=== PATIENT | male | born 1950 | race Caucasian/White ===

== ENCOUNTER 2022-04-02 18:07 | Inpatient (IN) | payer OTHER ==
[~2022-04-02] VITALS: Ht 170.2 cm; Wt 88.8 kg
[~2022-04-02 18:07] MED LIST: ALBU2.5V8 IH; APIX2.5T PO; BUME1TAB3 PO; CETI10TA16 PO; CRESTOR40 MG PO; FLEC100T PO; GABA600T7 PO; INSU100V13 SQ; PANT40TA77 PO
[2022-04-02 19:00] VITALS: BP 79/52
--- NOTE | 2022-04-02 19:50 | NUR ---
Pt in bed assessment completed vss pt oriented to surroundings and call light poc explained pt c/o pain to neck and back. on unit to see pt and place admit orders will resume care and continue to monitor pt. Call placed to pt for update.
[2022-04-02] MEDS ORDERED: ALBUMIN HUMAN 5% 250 ML IV PRN (21:00)
[2022-04-02] MEDS ORDERED: ONDANSETRON PF 4 MG/2 ML VIAL. IVP PRN (21:00)
[2022-04-02] MEDS ORDERED: hydrALAZINE 20 MG/ML VIAL. IVP PRN (21:00)
[2022-04-02] MEDS: HYDROcodone/APAP 5/325MG 1 TAB TABLET PO PRN (21:00)
[2022-04-02] MEDS ORDERED: fentaNYL PF VIAL 100 MCG/2 ML VIAL IVP PRN (21:00)
[2022-04-02] MEDS ORDERED: DEXTROSE 50% 25 GM / 50ML DISP.SYRIN. IV PRN (21:00)
[2022-04-02] MEDS ORDERED: ACETAMINOPHEN 325 MG TABLET. PO PRN (21:00)
[2022-04-02] MEDS ORDERED: NITROGLYCERIN SUBLINGUAL 0.4 MG BOTTLE OF 25. SL PRN (21:00)
[2022-04-02] MEDS ORDERED: ONDANSETRON ODT 4 MG TAB.RAPDIS. PO PRN (21:00)
--- NOTE | 2022-04-02 21:36 | PDOC1 ---
History and Physical Date of Admission Date of Admission DATE: 04/02/22 TIME: 21:04 Identification/Chief Complaint Chief Complaint Shortness of breath, COVID 19 positive Source Source: Chart review, Patient History of Present Illness History of Present Illness Mr Anderson is a 71 yo male with PMHx chronic afib, chronic combined CHF, ischemic cardiomyopathy s/p AICD placement, HTN, HLD, GERD, DM2, and ESRD on HD comes to the ED at [facility] c/o shortness of breath and inability to have dialysis. He has been short of breath for the past 6 days prior to arrival and feeling progressively more weak and has myalgias. His actually had to help him stand up today. He went to his regularly scheduled dialysis but he was asked to be rescheduled until tomorrow. He was concerned about his progressive symptoms and noted his tested positive for COVID19 2 weeks ago with similar symptoms and so came to [facility] ED for further care. Labs with WBC 15.9, Hb 12,8, platelets 176, Na 131, K 4.5, BUN 110, Cr 6.32, Glucose 211, Ca 8.1, AST 31, ALT35, Alk phos 108, Albumin 3.4, COVID 19 rapid positive Chest radiograph with no acute abnormality, well positioned right HD catheter and left sided AICD pacer Due to his lab abnormalities, unable to stand unaided and COVID 19 he was called for transfer to [place] for further care. Past Medical History Cardiovascular: AFIB, CAD, CHF, HTN, Hyperlipidemia Pulmonary: COPD CENTRAL NERVOUS SYSTEM: Other GI: GERD Heme/Onc: Anemia NOS Hepatobiliary: No pertinent hx Musculoskeletal: Osteoarthritis Rheumatologic: No pertinent hx Infectious disease: No pertinent hx Renal/: Chronic renal failure Endocrine: Diabetes Past Surgical History Past Surgical History: Pacemaker, Other Family History Family History: Coronary Artery Disease (Father), Heart Disease Social History Smoke: <1 pack per day (cigars) ALCOHOL: none Drugs: None Current Medications Current Medications Current Medications Acetaminophen/ Hydrocodone Bitart (Lortab 5/325) 1 tab PRN Q6HRS PRN PO PAIN Last administered on 04/02/22at 21:00; Start 04/02/22 at 21:00 Zinc Sulfate (Orazinc) 220 mg DAILY PO ; Start 04/03/22 at 09:00 Thiamine Mononitrate (Vitamin B-1) 100 mg DAILY PO ; Start 04/03/22 at 09:00 Ascorbic Acid (Vitamin C) 500 mg DAILY PO ; Start 04/03/22 at 09:00 Acetaminophen (Tylenol) 650 mg PRN Q6HRS PRN PO MILD PAIN / TEMP > 100.3'F; Start 04/02/22 at 21:00 Heparin Sodium (Porcine) (Heparin Sodium) 5,000 unit Q8HRS SQ ; Start 04/02/22 at 22:00; Status UNV Hydralazine HCl (Apresoline Inj) 10 mg PRN Q4HRS PRN IVP ELEVATED BP, SEE COMMENTS; Start 04/02/22 at 21:00; Status UNV Nitroglycerin (Nitrostat) 0.4 mg PRN Q5MIN PRN SL CHEST PAIN; Start 04/02/22 at 21:00; Status UNV Ondansetron HCl (Zofran Odt) 4 mg PRN Q4HRS PRN PO NAUSEA; Start 04/02/22 at 21:00; Status UNV Guaifenesin (Robitussin Dm) 10 ml PRN Q6HRS PRN PO COUGH; Start 04/02/22 at 21:00; Status UNV Ondansetron HCl (Zofran) 4 mg PRN Q4HRS PRN IVP NAUSEA/VOMITING; Start 04/02/22 at 21:00; Status UNV Tramadol HCl (Ultram) 50 mg PRN Q6HRS PRN PO PAIN; Start 04/02/22 at 21:00; Status UNV Fentanyl Citrate (Fentanyl 2ml Vial) 25 mcg PRN Q3HRS PRN IVP SEVERE PAIN 7-10; Start 04/02/22 at 21:00; Status UNV Insulin Human Lispro (HumaLOG) 0-9 UNITS TIDACHC SQ ; Start 04/02/22 at 21:00; Status UNV Dextrose (Dextrose 50%-Water Syringe) 12.5 gm PRN Q15MIN PRN IV SEE COMMENTS; Start 04/02/22 at 21:00; Status UNV Active Scripts Active Reported Proair Hfa Inhaler (Albuterol Sulfate) 8.5 Gm Hfa.aer.ad 2 Puff IH PRN Q4-6HRS PRN 21 Days Levemir (Insulin Detemir) 100 Unit/1 Ml Vial 22 Unit SQ HS Protonix (Pantoprazole Sodium) 40 Mg Tablet.dr 40 Mg PO DAILYAC Bumetanide 1 Mg Tablet 1 Tab PO DAILY Crestor (Rosuvastatin Calcium) 40 Mg Tablet 1 Tab PO DAILY Gabapentin 600 Mg Tablet 300 Mg PO HS Eliquis (Apixaban) 2.5 Mg Tablet 2.5 Mg PO BID Cetirizine Hcl 10 Mg Tablet 1 Tab PO DAILY Allergies Allergies: Coded Allergies: No Known Drug Allergies (Unverified , 01/31/22) ROS General: YES: Fatigue, Malaise, Appetite; No: Chills, Night Sweats, Other PSYCHOLOGICAL ROS: No: Anxiety, Behavioral Disorder, Concentration difficultie, Decreased libido, Depression, Disorientation, Hallucinations, Hostility, Irritablity, Memory difficulties, Mood Swings, Obsessive thoughts, Physical abuse, Sexual abuse, Sleep disturbances, Suicidal ideation, Other Eyes: No Blurry vision, No Decreased vision, No Double vision, No Dry eyes, No Excessive tearing, No Eye Pain, No Itchy Eyes, No Loss of vision, No Photophobia, No Scotomata, No Uses contacts, No Uses glasses, No Other HEENT: No: Heacaches, Visual Changes, Hearing change, Nasal congestion, Nasal discharge, Oral lesions, Sinus pain, Sore Throat, Epistaxis, Sneezing, Snoring, Tinnitus, Vertigo, Vocal changes, Other ALLERGY AND IMMUNOLOGY: No: Hives, Insect Bite Sensitivity, Itchy/Watery Eyes, Nasal Congestion, Post Nasal Drip, Seasonal Allergies, Other Hematological and Lymphatic: No: Bleeding Problems, Blood Clots, Blood Transfusions, Brusing, Night Sweats, Pallor, Swollen Lymph Nodes, Other ENDOCRINE: No: Breast Changes, Galactorrhea, Hair Pattern Changes, Hot Flashes, Malaise/lethargy, Mood Swings, Palpitations, Polydipsia/polyuria, Skin Changes, Temperature Intolerance, Unexpected Weight Changes, Other Breast: No New/Changing Breast Lumps, No Nipple changes, No Nipple discharge, No Other Respiratory: YES: Shortness of breath, SOB with excertion; No: Cough, Hemoptysis, Orthopnea, Pleuritic Pain, Sputum Changes, Stridor, Tachypnea, Wheezing, Other Cardiovascular: No Chest Pain, No Palpitations, No Orthopnea, No Paroxysmal Noc. Dyspnea, No Edema, No Lt Headedness, No Other Gastrointestinal: Yes Nausea; No Vomiting, No Abdominal Pain, No Diarrhea, No Constipation, No Melena, No Hematochezia, No Other Genitourinary: No Dysuria, No Frequency, No Incontinence, No Hematuria, No Retention, No Discharge, No Urgency, No Pain, No Flank Pain, No Other, No , No , No , No , No , No , No Musculoskeletal: Yes Gait Disturbance, Yes Joint Pain, Yes Muscle Pain, Yes Muscular Weakness; No Joint Stiffness, No Joint Swelling, No Pain In:, No Swelling In:, No Other Neurological: No Behavorial Changes, No Bowel/Bladder ControlChng, No Confu rinku, No Dizziness, No Gait Disturbance, No Headaches, No Impaired Coord/balance, No Memory Loss, No Numbness/Tingling, No Seizures, No Speech Problems, No Tremors, No Visual Changes, No Weakness, No Other Skin: No Dry Skin, No Eczema, No Hair Changes, No Lumps, No Mole Changes, No Mottling, No Nail Changes, No Pruritus, No Rash, No Skin Lesion Changes, No Oth er, No Acne Physical Exam General: Alert, Oriented X3, Cooperative, moderate distress HEENT: Atraumatic, PERRLA, EOMI, Mucous membr. moist/pink Lungs: Clear to auscultation, Normal air movement Heart: irregularly irregular, other (RIJ tunneled dialysis catheter) Abdomen: Normal bowel sounds, Soft, No tenderness, No hepatosplenomegaly, No masses Extremities: No clubbing, No cyanosis, No edema, Normal pulses, No tenderness/swelling Skin: No rashes, No breakdown, No significant lesion Neuro: Normal gait, Normal speech, Strength at 5/5 X4 ext, Normal tone, Sensation intact, Cranial nerves 3-12 NL, Reflexes 2+ Psych/Mental Status: Mental status NL, Mood NL Vitals Vitals Vital Signs Date Time Temp Pulse Resp B/P (MAP) Pulse Ox O2 Delivery O2 Flow Rate FiO2 04/02/22 21:00 18 94 Nasal Cannula 2.0 Labs Labs Laboratory Tests Test 04/02/22 20:33 Glucose (Fingerstick) 248 mg/dL (70-99) Laboratory Tests Test 04/02/22 20:33 Glucose (Fingerstick) 248 mg/dL (70-99) VTE Prophylaxis Ordered VTE Prophylaxis Devices: Yes VTE Pharmacological Prophylaxi: Yes Assessment/Plan Assessment/Plan COVID 19 - supportive care. Monitor O2 saturations, maintain > 89%. If hypoxic will initiate decadron and remdesivir therapy Weakness - likely related to COVID 19, also with some uremia Myalgias - viral syndrome ESRD - with uremia. Consult nephrology for missed dialysis session. Started dialysis this past November 2021, has RIJ tunneled dialysis catheter Cardiomyopathy - ischemic by history, s/p AICD [facility] paced rhythm with underlying afib HTN - low BP since HLD - statin DM2 - basal bolus plus insulin while inpatient Chronic AFIB - rate controlled with pacer AICD CAD - prior PCI. Sees Dr. Sena through the [facility] H/o UTI - [place] UTI in January 2022 FEN - Renal dialysis diet PPX - eliquis FULL CODE Dispo - inpatient Justifications for Admission General Conditions Poss hypotension?: Yes Justification for admission: Patient has hypotension (SBP < 90 mm Hg) which is not readily corrected by appropriate treatment within 12 to 24 hours. Poss Metaboilic Acidosis?: Yes Justification for admission: Patient has tachycardia (> 100 beats per minute) or hypotension (SBP < 90 mm Hg) leading to inadequate systemic perfusion as indicated by metabolic acidosis with arterial pH of less than 7.35. Other Justification SHELIA OCASIO MD April 02, 2022 21:36
[2022-04-02] MEDS: DOCUSATE SODIUM 100 MG CAPSULE. PO SCH (21:57)
[2022-04-02] MEDS: ATORVASTATIN CALCIUM 40 MG TABLET. PO SCH (21:57)
[2022-04-02] MEDS: guaiFENesin DM 200MG/20MG 10 ML SYRUP PO PRN (21:57)
[2022-04-02] MEDS: GABAPENTIN 300 MG CAPSULE. PO SCH (21:57)
[2022-04-02] MEDS: APIXABAN 2.5 MG TABLET. PO SCH (21:57)
[2022-04-02] MEDS: INSULIN GLARGINE SYRINGE. SQ SCH (21:58)
[2022-04-02] MEDS: INSULIN LISPRO 300 UNITS/3 ML VIAL. SQ SCH (22:00)
[2022-04-02] MEDS ORDERED: HEPARIN for SUB-Q USE 5,000 UNIT/ML VIAL. SQ SCH (22:00)
[2022-04-02] MEDS: traMADol 50 MG TABLET PO PRN (22:01)
[2022-04-02 23:00] VITALS: BP 99/50
[2022-04-03] MEDS ORDERED: TIOT18CA IH (02:36)
[2022-04-03] MEDS ORDERED: BUPR1PAT10 TP (02:36)
[2022-04-03] MEDS ORDERED: BUME1TAB3 PO (02:36)
[2022-04-03] MEDS ORDERED: CHOL10004 PO (02:36)
[2022-04-03] MEDS ORDERED: FLEC100T PO (02:36)
[2022-04-03 02:44] VITALS: BP 96/51
[2022-04-03] MEDS: HYDROcodone/APAP 5/325MG 1 TAB TABLET PO PRN ×3 (03:24→18:30)
[2022-04-03 05:30] LABS: BASO % 0 % (0-3); EOS % 0 % (0-3); HEMATOCRIT 36.1 % (39.0-53.0); HEMOGLOBIN 11.8 g/dL (13.0-17.5); LYMPH # 0.5 x10^3/uL (1.0-4.8); LYMPH % 4 % (24-48); MEAN CORPUSCULAR HEMOGLOBIN 29 pg (25-35); MEAN CORPUSCULAR HGB CONC 33 g/dL (31-37); MEAN CORPUSCULAR VOLUME 88 fL (79-100); MONO # 1.2 x10^3/uL (0.0-1.1); MONO % 8 % (0-9); NEUT # 12.2 x10^3/uL (1.8-7.7); NEUT % 88 % (31-73); PLATELET COUNT 169 x10^3/uL (140-400); RED BLOOD COUNT 4.11 x10^6/uL (4.30-5.70); RED CELL DISTRIBUTION WIDTH 15.1 % (11.5-14.5); WHITE BLOOD COUNT 13.8 x10^3/uL (4.0-11.0)
[2022-04-03 05:44] LABS: ALBUMIN 2.4 g/dL (3.4-5.0); ALBUMIN/GLOBULIN RATIO 0.5 (1.0-1.7); CALCIUM 7.8 mg/dL (8.5-10.1); CREATININE 7.2 mg/dL (0.7-1.3); GFR 7.5; POTASSIUM 4.1 mmol/L (3.5-5.1); TOTAL BILIRUBIN 1.1 mg/dL (0.2-1.0); TOTAL PROTEIN 6.8 g/dL (6.4-8.2)
[2022-04-03] MEDS: PANTOPRAZOLE 40 MG TABLET.DR. PO SCH (06:13)
[2022-04-03 06:33] VITALS: BP 89/53
[2022-04-03] MEDS: ASCORBIC ACID 500 MG TABLET PO SCH (08:36)
[2022-04-03] MEDS: APIXABAN 2.5 MG TABLET. PO SCH ×2 (08:36→20:57)
[2022-04-03] MEDS: CETIRIZINE HCL 10 MG TABLET. PO SCH (08:36)
[2022-04-03] MEDS: THIAMINE 100 MG TABLET. PO SCH (08:36)
[2022-04-03] MEDS: ZINC SULFATE 220 MG CAPSULE. PO SCH (08:36)
[2022-04-03] MEDS: DOCUSATE SODIUM 100 MG CAPSULE. PO SCH ×2 (08:36→20:58)
--- NOTE | 2022-04-03 08:46 | PDOC ---
[employer] PROGRESS NOTE Date of Service DOS: DATE: 04/03/22 TIME: 08:42 Chief Complaint Chief Complaint COVID 19 - supportive care. Monitor O2 saturations, maintain > 89%. If hypoxic will initiate decadron and remdesivir therapy Weakness - likely related to COVID 19, also with some uremia Myalgias - viral syndrome ESRD - with uremia. Consult nephrology for missed dialysis session. Started dialysis this past November 2021, has RIJ tunneled dialysis catheter Cardiomyopathy - ischemic by history, s/p AICD [facility] paced rhythm with underlying afib HTN - low BP since HLD - statin DM2 - basal bolus plus insulin while inpatient Chronic AFIB - rate controlled with pacer AICD CAD - prior PCI. Sees Dr. Sena through the [facility] H/o UTI - [place] UTI in January 2022 Severe malnutrition History of Present Illness History of Present Illness 04/03: Patient afebrile, resting comfortably on room air. Denies any shortness of breath. Reports some muscle aches in his neck, shoulders, and proximal legs. States he has not had dialysis and few days due to his weakness. Potassium 4.1; I doubt there is any urgent need for dialysis at this time, but will wait for nephrology impression. Vitals/I&O Vitals/I&O: Vital Signs Date Time Temp Pulse Resp B/P (MAP) Pulse Ox O2 Delivery O2 Flow Rate FiO2 04/03/22 06:33 97.9 62 17 89/53 (65) 95 Room Air 97.9 04/02/22 22:01 2.0 I & O 04/02/22 04/02/22 04/03/22 15:00 23:00 07:00 Intake Total 650 ml 600 ml Balance 650 ml 600 ml Physical Exam General: Alert, Oriented X3, Cooperative, No acute distress Heart: Regular rate Lungs: Clear Abdomen: Normal bowel sounds, Soft, No tenderness, No hepatosplenomegaly, No masses Extremities: No clubbing, No cyanosis, No edema, Normal pulses, No tenderness/swelling Skin: No rashes, No breakdown, No significant lesion Labs Labs: Laboratory Tests Test 04/02/22 20:33 04/03/22 05:00 04/03/22 07:57 Glucose (Fingerstick) 248 mg/dL (70-99) 220 mg/dL (70-99) White Blood Count 13.8 x10^3/uL (4.0-11.0) Red Blood Count 4.11 x10^6/uL (4.30-5.70) Hemoglobin 11.8 g/dL (13.0-17.5) Hematocrit 36.1 % (39.0-53.0) Mean Corpuscular Volume 88 fL (79-100) Mean Corpuscular Hemoglobin 29 pg (25-35) Mean Corpuscular Hemoglobin Concent 33 g/dL (31-37) Red Cell Distribution Width 15.1 % (11.5-14.5) Platelet Count 169 x10^3/uL (140-400) Neutrophils (%) (Auto) 88 % (31-73) Lymphocytes (%) (Auto) 4 % (24-48) Monocytes (%) (Auto) 8 % (0-9) Eosinophils (%) (Auto) 0 % (0-3) Basophils (%) (Auto) 0 % (0-3) Neutrophils # (Auto) 12.2 x10^3/uL (1.8-7.7) Lymphocytes # (Auto) 0.5 x10^3/uL (1.0-4.8) Monocytes # (Auto) 1.2 x10^3/uL (0.0-1.1) Eosinophils # (Auto) 0.0 x10^3/uL (0.0-0.7) Basophils # (Auto) 0.0 x10^3/uL (0.0-0.2) Sodium Level 132 mmol/L (136-145) Potassium Level 4.1 mmol/L (3.5-5.1) Chloride Level 91 mmol/L (98-107) Carbon Dioxide Level 21 mmol/L (21-32) Anion Gap 20 (6-14) Blood Urea Nitrogen 124 mg/dL (8-26) Creatinine 7.2 mg/dL (0.7-1.3) Estimated GFR (Cockcroft-Gault) 7.5 BUN/Creatinine Ratio 17 (6-20) Glucose Level 265 mg/dL (70-99) Calcium Level 7.8 mg/dL (8.5-10.1) Phosphorus Level 7.0 mg/dL (2.6-4.7) Total Bilirubin 1.1 mg/dL (0.2-1.0) Aspartate Amino Transf (AST/SGOT) 34 U/L (15-37) Alanine Aminotransferase (ALT/SGPT) 40 U/L (16-63) Alkaline Phosphatase 107 U/L (46-116) Total Protein 6.8 g/dL (6.4-8.2) Albumin 2.4 g/dL (3.4-5.0) Albumin/Globulin Ratio 0.5 (1.0-1.7) Comment Review of Relevant I have reviewed the following items kate (where applicable) has been applied. Medications: Current Medications Medications (Trade) Dose Ordered Sig/Mariza Route PRN Reason Start Time Stop Time Status Last Admin Dose Admin Acetaminophen/ Hydrocodone Bitart (Lortab 5/325) 1 tab PRN Q6HRS PRN PO PAIN SEVERE 04/02/22 21:00 04/03/22 03:24 Guaifenesin (Robitussin Dm) 10 ml PRN Q6HRS PRN PO COUGH 04/02/22 21:00 04/02/22 21:57 Tramadol HCl (Ultram) 50 mg PRN Q6HRS PRN PO PAIN MODERATE 04/02/22 21:00 04/02/22 22:01 Insulin Human Lispro (HumaLOG) 0-9 UNITS TIDACHC SQ 04/02/22 21:30 04/02/22 22:00 Docusate Sodium (Colace) 100 mg BID PO 04/02/22 21:30 04/02/22 21:57 Apixaban (Eliquis) 2.5 mg BID PO 04/02/22 21:30 04/02/22 21:57 Pantoprazole Sodium (Protonix) 40 mg DAILYAC PO 04/03/22 07:30 04/03/22 06:13 Gabapentin (Neurontin) 300 mg HS PO 04/02/22 21:30 04/02/22 21:57 Insulin Glargine (Lantus Syringe) 22 unit QHS SQ 04/02/22 21:30 04/02/22 21:58 Atorvastatin Calcium (Lipitor) 80 mg QHS PO 04/02/22 21:30 04/02/22 21:57 Justifications for Admission General Conditions Poss hypotension?: Yes Justification for admission: Patient has hypotension (SBP < 90 mm Hg) which is not readily corrected by appropriate treatment within 12 to 24 hours. Poss Metaboilic Acidosis?: Yes Justification for admission: Patient has tachycardia (> 100 beats per minute) or hypotension (SBP < 90 mm Hg) leading to inadequate systemic perfusion as indicated by metabolic acidosis with arterial pH of less than 7.35. Other Justification ILIA SHANNON MD April 03, 2022 08:46
[2022-04-03] MEDS: INSULIN LISPRO 300 UNITS/3 ML VIAL. SQ SCH ×4 (08:49→21:00)
[2022-04-03] MEDS ORDERED: ALBUMIN HUMAN 25% 200 ML IV PRN (10:00)
[2022-04-03] MEDS ORDERED: 0.9 % SODIUM CHLORIDE 10 ML DISP.SYRIN. IV PRN ×2 (10:00)
[2022-04-03] MEDS ORDERED: DIALYSIS PATIENT. MC PRN ×2 (10:00)
[2022-04-03] MEDS ORDERED: IV NORMAL SALINE 1000ML BAG 1,000 ML IV PRN ×2 (10:00)
[2022-04-03 10:39] VITALS: BP 92/47
--- NOTE | 2022-04-03 11:36 | PDOC2 ---
CONSULT Date of Consult Date of Consult DATE: 04/03/22 TIME: 11:30 Reason for Consult Reason for Consult: ESRD Referring Physician Referring Physician: AMARJIT Identification/Chief Complaint Chief Complaint WEAKNESS Source Source: Chart review, Patient History of Present Illness Reason for Visit: THIS IS A 71 YR OLD WITH ESRD ON OP HD ON TTS. HAS HAD SOB AND WEAKNESS. UNABLE TO GET HIS HD TX YESTERDAY. HAS HAD MYALGIAS WELL. HE AND HIS ARE BOTH COVID 19 POS. LABS C/W ESRD. HE ALSO HAS LEUCOCYTOSIS. HAS A RIGHT SIDED IJ TDC FOR HD ACCESS. ESRD DUE TO DM II Past Medical History Cardiovascular: AFIB, CAD, CHF, HTN, Hyperlipidemia Pulmonary: COPD CENTRAL NERVOUS SYSTEM: Other GI: GERD Heme/Onc: Anemia NOS Hepatobiliary: No pertinent hx Musculoskeletal: Osteoarthritis Rheumatologic: No pertinent hx Infectious disease: No pertinent hx Renal/: Chronic renal failure Endocrine: Diabetes, Hyperparathyroidism Past Surgical History Past Surgical History RIGHT IJ TDC Past Surgical History: Pacemaker, Other Family History Family History: Coronary Artery Disease (Father), Heart Disease Social History <1 pack per day (cigars) ALCOHOL: none Drugs: None Lives: with Family Current Medications Current Medications Current Medications Acetaminophen/ Hydrocodone Bitart (Lortab 5/325) 1 tab PRN Q6HRS PRN PO PAIN SEVERE Last administered on 04/03/22at 03:24; Start 04/02/22 at 21:00 Zinc Sulfate (Orazinc) 220 mg DAILY PO Last administered on 04/03/22at 08:36; Start 04/03/22 at 09:00 Thiamine Mononitrate (Vitamin B-1) 100 mg DAILY PO Last administered on 04/03/22at 08:36; Start 04/03/22 at 09:00 Ascorbic Acid (Vitamin C) 500 mg DAILY PO Last administered on 04/03/22at 08:36; Start 04/03/22 at 09:00 Acetaminophen (Tylenol) 650 mg PRN Q6HRS PRN PO MILD PAIN / TEMP > 100.3'F; Start 04/02/22 at 21:00 Heparin Sodium (Porcine) (Heparin Sodium) 5,000 unit Q8HRS SQ ; Start 04/02/22 at 22:00; Stop 04/02/22 at 21:19; Status DC Hydralazine HCl (Apresoline Inj) 10 mg PRN Q4HRS PRN IVP ELEVATED BP, SEE COMMENTS; Start 04/02/22 at 21:00 Nitroglycerin (Nitrostat) 0.4 mg PRN Q5MIN PRN SL CHEST PAIN; Start 04/02/22 at 21:00 Ondansetron HCl (Zofran Odt) 4 mg PRN Q4HRS PRN PO NAUSEA; Start 04/02/22 at 21:00 Guaifenesin (Robitussin Dm) 10 ml PRN Q6HRS PRN PO COUGH Last administered on 04/02/22at 21:57; Start 04/02/22 at 21:00 Ondansetron HCl (Zofran) 4 mg PRN Q4HRS PRN IVP NAUSEA/VOMITING; Start 04/02/22 at 21:00 Tramadol HCl (Ultram) 50 mg PRN Q6HRS PRN PO PAIN MODERATE Last administered on 04/02/22at 22:01; Start 04/02/22 at 21:00 Fentanyl Citrate (Fentanyl 2ml Vial) 25 mcg PRN Q3HRS PRN IVP SEVERE PAIN 7-10; Start 04/02/22 at 21:00 Insulin Human Lispro (HumaLOG) 0-9 UNITS TIDACHC SQ Last administered on 04/03/22at 08:49; Start 04/02/22 at 21:30 Dextrose (Dextrose 50%-Water Syringe) 12.5 gm PRN Q15MIN PRN IV SEE COMMENTS; Start 04/02/22 at 21:00 Docusate Sodium (Colace) 100 mg BID PO Last administered on 04/03/22at 08:36; Start 04/02/22 at 21:30 Albumin Human 250 ml @ 62.5 mls/hr PRN DAILY PRN IV HYPOTENSION; Start 04/02/22 at 21:00 Apixaban (Eliquis) 2.5 mg BID PO Last administered on 04/03/22at 08:36; Start 04/02/22 at 21:30 Cetirizine HCl (ZyrTEC) 10 mg DAILY PO Last administered on 04/03/22at 08:36; Start 04/03/22 at 09:00 Pantoprazole Sodium (Protonix) 40 mg DAILYAC PO Last administered on 04/03/22at 06:13; Start 04/03/22 at 07:30 Gabapentin (Neurontin) 300 mg HS PO Last administered on 04/02/22at 21:57; Start 04/02/22 at 21:30 Insulin Glargine (Lantus Syringe) 22 unit QHS SQ Last administered on 04/02/22at 21:58; Start 04/02/22 at 21:30 Atorvastatin Calcium (Lipitor) 80 mg QHS PO Last administered on 04/02/22at 21:57; Start 04/02/22 at 21:30 Sodium Chloride 1,000 ml @ 1,000 mls/hr Q1H PRN IV hypotension; Start 04/03/22 at 10:00; Stop 04/03/22 at 15:59 Albumin Human 200 ml @ 200 mls/hr 1X PRN PRN IV Hypotension; Start 04/03/22 at 10:00; Stop 04/03/22 at 15:59 Sodium Chloride (Normal Saline Flush) 10 ml 1X PRN PRN IV AP catheter pack; Start 04/03/22 at 10:00; Stop 04/04/22 at 09:59 Sodium Chloride (Normal Saline Flush) 10 ml 1X PRN PRN IV LICENSED [employer]ICAL N[employer]SE INSTRUCTOR catheter pack; Start 04/03/22 at 10:00; Stop 04/04/22 at 09:59 Sodium Chloride 1,000 ml @ 400 mls/hr Q2H30M PRN IV PATENCY; Start 04/03/22 at 10:00; Stop 04/03/22 at 21:59 Info (PHARMACY MONITORING -- do not chart) 1 each PRN DAILY PRN MC SEE COMMENTS; Start 04/03/22 at 10:00 Info (PHARMACY MONITORING -- do not chart) 1 each PRN DAILY PRN MC SEE COMMENTS; Start 04/03/22 at 10:00; Status UNV Active Scripts Active Reported Vitamin D3 (Vitamin D) 25 Mcg Tablet 50 Mcg PO DAILY 1,000 UNITS = 25 MCG Spiriva (Tiotropium [place]) 18 Mcg Cap.w.dev 2 Inh IH DAILY Flecainide Acetate 100 Mg Tablet 1.5 Tab PO BID Butrans (Buprenorphine) 1 Each Patch.tdwk 1 Patch TP WEEKLY MDD 0.14 Patch(s) 28 Days Bumetanide 1 Mg Tablet 1 Tab PO QEVNG Proair Hfa Inhaler (Albuterol Sulfate) 8.5 Gm Hfa.aer.ad 2 Puff IH PRN Q4-6HRS PRN 21 Days Levemir (Insulin Detemir) 100 Unit/1 Ml Vial 24 Unit SQ HS Protonix (Pantoprazole Sodium) 40 Mg Tablet.dr 40 Mg PO DAILYAC Bumetanide 1 Mg Tablet 2 Tab PO DAILY Crestor (Rosuvastatin Calcium) 40 Mg Tablet 1 Tab PO DAILY Gabapentin 600 Mg Tablet 300 Mg PO HS Eliquis (Apixaban) 2.5 Mg Tablet 2.5 Mg PO BID Cetirizine Hcl 10 Mg Tablet 0.5 Tab PO DAILY Allergies Allergies: Coded Allergies: No Known Drug Allergies (Unverified , 01/31/22) ROS General: YES: Fatigue PSYCHOLOGICAL ROS: YES: Anxiety Eyes: Yes Decreased vision HEENT: YES: Heacaches Respiratory: YES: Cough, Shortness of breath Cardiovascular: yes Lt Headedness Gastrointestinal: Yes Constipation Genitourinary: YES Other (ANURIA) Musculoskeletal: Yes Muscular Weakness Neurological: Yes Weakness Skin: Yes Dry Skin Physical Exam Physical Exam RIGHT IJ TDC General: Alert, Cooperative, No acute distress HEENT: Atraumatic, PERRLA Lungs: Clear to auscultation Heart: Regular rate Abdomen: Normal bowel sounds, Soft, No tenderness Extremities: No clubbing Skin: No rashes Neuro: Normal speech Psych/Mental Status: Mental status NL, Mood NL MUSCULOSKELETAL: No joint tenderness, No deformity Vitals VITALS Vital Signs Date Time Temp Pulse Resp B/P (MAP) Pulse Ox O2 Delivery O2 Flow Rate FiO2 04/03/22 10:39 96.1 82 18 92/47 (62) 97 Room Air 96.1 04/02/22 22:01 2.0 Labs Labs Laboratory Tests Test 04/02/22 20:33 04/03/22 05:00 04/03/22 07:57 04/03/22 11:19 Glucose (Fingerstick) 248 mg/dL (70-99) 220 mg/dL (70-99) 245 mg/dL (70-99) White Blood Count 13.8 x10^3/uL (4.0-11.0) Red Blood Count 4.11 x10^6/uL (4.30-5.70) Hemoglobin 11.8 g/dL (13.0-17.5) Hematocrit 36.1 % (39.0-53.0) Mean Corpuscular Volume 88 fL (79-100) Mean Corpuscular Hemoglobin 29 pg (25-35) Mean Corpuscular Hemoglobin Concent 33 g/dL (31-37) Red Cell Distribution Width 15.1 % (11.5-14.5) Platelet Count 169 x10^3/uL (140-400) Neutrophils (%) (Auto) 88 % (31-73) Lymphocytes (%) (Auto) 4 % (24-48) Monocytes (%) (Auto) 8 % (0-9) Eosinophils (%) (Auto) 0 % (0-3) Basophils (%) (Auto) 0 % (0-3) Neutrophils # (Auto) 12.2 x10^3/uL (1.8-7.7) Lymphocytes # (Auto) 0.5 x10^3/uL (1.0-4.8) Monocytes # (Auto) 1.2 x10^3/uL (0.0-1.1) Eosinophils # (Auto) 0.0 x10^3/uL (0.0-0.7) Basophils # (Auto) 0.0 x10^3/uL (0.0-0.2) Sodium Level 132 mmol/L (136-145) Potassium Level 4.1 mmol/L (3.5-5.1) Chloride Level 91 mmol/L (98-107) Carbon Dioxide Level 21 mmol/L (21-32) Anion Gap 20 (6-14) Blood Urea Nitrogen 124 mg/dL (8-26) Creatinine 7.2 mg/dL (0.7-1.3) Estimated GFR (Cockcroft-Gault) 7.5 BUN/Creatinine Ratio 17 (6-20) Glucose Level 265 mg/dL (70-99) Calcium Level 7.8 mg/dL (8.5-10.1) Phosphorus Level 7.0 mg/dL (2.6-4.7) Total Bilirubin 1.1 mg/dL (0.2-1.0) Aspartate Amino Transf (AST/SGOT) 34 U/L (15-37) Alanine Aminotransferase (ALT/SGPT) 40 U/L (16-63) Alkaline Phosphatase 107 U/L (46-116) Creatine Kinase 122 U/L (39-308) Total Protein 6.8 g/dL (6.4-8.2) Albumin 2.4 g/dL (3.4-5.0) Albumin/Globulin Ratio 0.5 (1.0-1.7) Laboratory Tests Test 04/02/22 20:33 04/03/22 05:00 04/03/22 07:57 04/03/22 11:19 Glucose (Fingerstick) 248 mg/dL (70-99) 220 mg/dL (70-99) 245 mg/dL (70-99) White Blood Count 13.8 x10^3/uL (4.0-11.0) Red Blood Count 4.11 x10^6/uL (4.30-5.70) Hemoglobin 11.8 g/dL (13.0-17.5) Hematocrit 36.1 % (39.0-53.0) Mean Corpuscular Volume 88 fL (79-100) Mean Corpuscular Hemoglobin 29 pg (25-35) Mean Corpuscular Hemoglobin Concent 33 g/dL (31-37) Red Cell Distribution Width 15.1 % (11.5-14.5) Platelet Count 169 x10^3/uL (140-400) Neutrophils (%) (Auto) 88 % (31-73) Lymphocytes (%) (Auto) 4 % (24-48) Monocytes (%) (Auto) 8 % (0-9) Eosinophils (%) (Auto) 0 % (0-3) Basophils (%) (Auto) 0 % (0-3) Neutrophils # (Auto) 12.2 x10^3/uL (1.8-7.7) Lymphocytes # (Auto) 0.5 x10^3/uL (1.0-4.8) Monocytes # (Auto) 1.2 x10^3/uL (0.0-1.1) Eosinophils # (Auto) 0.0 x10^3/uL (0.0-0.7) Basophils # (Auto) 0.0 x10^3/uL (0.0-0.2) Sodium Level 132 mmol/L (136-145) Potassium Level 4.1 mmol/L (3.5-5.1) Chloride Level 91 mmol/L (98-107) Carbon Dioxide Level 21 mmol/L (21-32) Anion Gap 20 (6-14) Blood Urea Nitrogen 124 mg/dL (8-26) Creatinine 7.2 mg/dL (0.7-1.3) Estimated GFR (Cockcroft-Gault) 7.5 BUN/Creatinine Ratio 17 (6-20) Glucose Level 265 mg/dL (70-99) Calcium Level 7.8 mg/dL (8.5-10.1) Phosphorus Level 7.0 mg/dL (2.6-4.7) Total Bilirubin 1.1 mg/dL (0.2-1.0) Aspartate Amino Transf (AST/SGOT) 34 U/L (15-37) Alanine Aminotransferase (ALT/SGPT) 40 U/L (16-63) Alkaline Phosphatase 107 U/L (46-116) Creatine Kinase 122 U/L (39-308) Total Protein 6.8 g/dL (6.4-8.2) Albumin 2.4 g/dL (3.4-5.0) Albumin/Globulin Ratio 0.5 (1.0-1.7) Assessment/Plan Assessment/Plan IMP [id number] IJ TDC ANEMIA DM II HTN HX HYPOTENSION COVID 19 VIRAL SYNDROME WITH MYALGIAS HX OF CM WITH PPM PLAN HD TODAY UF TO TW START HEMA COVID 19 PROTOCOL SUPPORTIVE CARE WILL FOLLOW MARVIN CHO MD April 03, 2022 11:36
--- NOTE | 2022-04-03 15:21 | NUR ---
SS following for discharge planning. SS reviewed pt chart and discussed with pt RN. Pt is from home with spouse and is currently on room air. COVID19 positive over the weekend. Nephrology following. Pt has outpatient hemodialysis at [facility], ; fax [phone], Friday, , and Friday. Per [facility] pt can return to there clinic on 04/09/2022. PT/OT ordered. OT recommended [facility]. SS will continue to follow for discharge planning.
[2022-04-03] MEDS: cefTRIAXone IV Push 2 GM VIAL. IVP SCH (17:00)
[2022-04-03 18:57] VITALS: BP 104/59
--- NOTE | 2022-04-03 19:40 | NUR ---
Pt in bed assessment completed pt denied pain at this time, call light in reach will resume care and continue to monitor pt.
[2022-04-03] MEDS: GABAPENTIN 300 MG CAPSULE. PO SCH (20:57)
[2022-04-03] MEDS: ATORVASTATIN CALCIUM 40 MG TABLET. PO SCH (20:58)
[2022-04-03] MEDS: INSULIN GLARGINE SYRINGE. SQ SCH (20:59)
[2022-04-03] MEDS ORDERED: EPOETIN ALFA 20,000 UNIT/ML VIAL for DIALYSIS PTS. SQ ONE (21:00)
[2022-04-03 22:58] VITALS: BP 90/49
[2022-04-04] VITALS (7 sets, daily range): BP systolic 82–117; BP diastolic 40–54
[2022-04-04] MEDS: PANTOPRAZOLE 40 MG TABLET.DR. PO SCH (05:52)
[2022-04-04] MEDS ORDERED: DIALYSIS PATIENT. MC PRN (06:45)
[2022-04-04] MEDS ORDERED: IV NORMAL SALINE 1000ML BAG 1,000 ML IV PRN ×2 (06:45)
[2022-04-04] MEDS: INSULIN LISPRO 300 UNITS/3 ML VIAL. SQ SCH ×4 (07:30→20:17)
[2022-04-04 08:16] LABS: HEMATOCRIT 36.4 % (39.0-53.0); HEMOGLOBIN 12.1 g/dL (13.0-17.5); RED BLOOD COUNT 4.17 x10^6/uL (4.30-5.70); RED CELL DISTRIBUTION WIDTH 15.7 % (11.5-14.5); WHITE BLOOD COUNT 9.4 x10^3/uL (4.0-11.0)
[2022-04-04 08:22] LABS: ALBUMIN 2.3 g/dL (3.4-5.0); ALBUMIN/GLOBULIN RATIO 0.5 (1.0-1.7); CALCIUM 7.7 mg/dL (8.5-10.1); CREATININE 4.1 mg/dL (0.7-1.3); GFR 14.4; POTASSIUM 3.8 mmol/L (3.5-5.1); TOTAL BILIRUBIN 0.8 mg/dL (0.2-1.0); TOTAL PROTEIN 6.6 g/dL (6.4-8.2)
--- NOTE | 2022-04-04 10:39 | PDOC ---
Renal-Progress Notes Subjective Notes Notes NONE History of Present Illness Hx of present illness NO ACUTE CHANGES Vitals Vitals Vital Signs Date Time Temp Pulse Resp B/P (MAP) Pulse Ox O2 Delivery O2 Flow Rate FiO2 04/04/22 07:00 99.6 82 18 95/43 (60) 94 Nasal Cannula 2.0 99.6 Weight Weight [ ] I.O. Intake and Output Intake and Output 04/04/22 07:00 Intake Total 600 ml Output Total 100 ml Balance 500 ml Intake Oral 600 ml Output Urine Total 100 ml Labs Labs Laboratory Tests Test 04/03/22 10:42 04/03/22 11:19 04/03/22 18:19 04/03/22 19:30 Hepatitis B Surface Antigen Nonreactive (Nonreactive) Hepatitis B Surface Antibody Nonreactive Glucose (Fingerstick) 245 mg/dL (70-99) 136 mg/dL (70-99) 155 mg/dL (70-99) Test 04/04/22 05:50 04/04/22 07:12 White Blood Count 9.4 x10^3/uL (4.0-11.0) Red Blood Count 4.17 x10^6/uL (4.30-5.70) Hemoglobin 12.1 g/dL (13.0-17.5) Hematocrit 36.4 % (39.0-53.0) Mean Corpuscular Volume 87 fL (79-100) Mean Corpuscular Hemoglobin 29 pg (25-35) Mean Corpuscular Hemoglobin Concent 33 g/dL (31-37) Red Cell Distribution Width 15.7 % (11.5-14.5) Platelet Count 165 x10^3/uL (140-400) Sodium Level 139 mmol/L (136-145) Potassium Level 3.8 mmol/L (3.5-5.1) Chloride Level 100 mmol/L (98-107) Carbon Dioxide Level 27 mmol/L (21-32) Anion Gap 12 (6-14) Blood Urea Nitrogen 47 mg/dL (8-26) Creatinine 4.1 mg/dL (0.7-1.3) Estimated GFR (Cockcroft-Gault) 14.4 BUN/Creatinine Ratio 11 (6-20) Glucose Level 120 mg/dL (70-99) Calcium Level 7.7 mg/dL (8.5-10.1) Total Bilirubin 0.8 mg/dL (0.2-1.0) Aspartate Amino Transf (AST/SGOT) 31 U/L (15-37) Alanine Aminotransferase (ALT/SGPT) 41 U/L (16-63) Alkaline Phosphatase 116 U/L (46-116) Total Protein 6.6 g/dL (6.4-8.2) Albumin 2.3 g/dL (3.4-5.0) Albumin/Globulin Ratio 0.5 (1.0-1.7) Glucose (Fingerstick) 114 mg/dL (70-99) Review of Systems Constitutional: yes: weakness, alert Ears/Nose/Throat: Yes: no symptom reported Eyes: Yes: no symptom reported Pulmonary: Yes dyspnea Cardiovascular: Yes no symptom reported Gastrointestional: Yes: no symptom reported Genitourinary: Yes: no symptom reported Musculoskeletal: Yes: no symptom reported Skin: Yes no symptom reported Psychiatric/Neurological: Yes: no symptom reported Physical Exam General Appearance: no apparent distress Skin: warm Respiratory: decreased breath sounds Heart: S1S2 Abdomen: soft Genitourinary: bladder flat Extremities: pulses present Neurology: alert Musculoskeletal: Osteoarthritis Assessment Assessment IMP [id number] IJ TDC ANEMIA DM II HTN HX HYPOTENSION COVID 19 VIRAL SYNDROME WITH MYALGIAS HX OF CM WITH PPM PLAN HD TODAY MIN UF CONT HEMA COVID 19 PROTOCOL SUPPORTIVE CARE WILL FOLLOW MARVIN CHO MD April 04, 2022 10:38
--- NOTE | 2022-04-04 11:00 | NUR ---
WOUND CARE: Attempted to see patient for wound care. Patient off unit at this time. Wound care will see patient tomorrow.
--- NOTE | 2022-04-04 11:25 | PDOC ---
[employer] PROGRESS NOTE Date of Service DOS: DATE: 04/04/22 TIME: 11:24 Chief Complaint Chief Complaint COVID 19 - supportive care. Monitor O2 saturations, maintain > 89%. If hypoxic will initiate decadron and remdesivir therapy Weakness - likely related to COVID 19, also with some uremia Myalgias - viral syndrome ESRD - with uremia. Consult nephrology for missed dialysis session. Started dialysis this past November 2021, has RIJ tunneled dialysis catheter Cardiomyopathy - ischemic by history, s/p AICD [facility] paced rhythm with underlying afib HTN - low BP since HLD - statin DM2 - basal bolus plus insulin while inpatient Chronic AFIB - rate controlled with pacer AICD CAD - prior PCI. Sees Dr. Sena through the [facility] H/o UTI - morganella UTI in January 2022 Severe malnutrition History of Present Illness History of Present Illness 04/04 Patient evaluated undergoing dialysis. He is a bit lethargic but no major complaints. Continue current. Therapy evaluation for possible placement. Discussed with bedside RN. [facility] recommendations reviewed. 04/03: Patient afebrile, resting comfortably on room air. Denies any shortness of breath. Reports some muscle aches in his neck, shoulders, and proximal legs. States he has not had dialysis and few days due to his weakness. Potassium 4.1; I doubt there is any urgent need for dialysis at this time, but will wait for nephrology impression. Vitals/I&O Vitals/I&O: Vital Signs Date Time Temp Pulse Resp B/P (MAP) Pulse Ox O2 Delivery O2 Flow Rate FiO2 04/04/22 07:00 99.6 82 18 95/43 (60) 94 Nasal Cannula 2.0 99.6 I & O 04/03/22 04/03/22 04/04/22 15:00 23:00 07:00 Intake Total 540 ml 60 ml 0 ml Output Total 100 ml Balance 440 ml 60 ml 0 ml Physical Exam General: Alert, Cooperative, No acute distress Heart: Regular rate Lungs: Clear Abdomen: Normal bowel sounds, Soft, No tenderness Extremities: No clubbing Skin: No rashes Labs Labs: Laboratory Tests Test 04/03/22 18:19 04/03/22 19:30 04/04/22 05:50 04/04/22 07:12 Glucose (Fingerstick) 136 mg/dL (70-99) 155 mg/dL (70-99) 114 mg/dL (70-99) White Blood Count 9.4 x10^3/uL (4.0-11.0) Red Blood Count 4.17 x10^6/uL (4.30-5.70) Hemoglobin 12.1 g/dL (13.0-17.5) Hematocrit 36.4 % (39.0-53.0) Mean Corpuscular Volume 87 fL (79-100) Mean Corpuscular Hemoglobin 29 pg (25-35) Mean Corpuscular Hemoglobin Concent 33 g/dL (31-37) Red Cell Distribution Width 15.7 % (11.5-14.5) Platelet Count 165 x10^3/uL (140-400) Sodium Level 139 mmol/L (136-145) Potassium Level 3.8 mmol/L (3.5-5.1) Chloride Level 100 mmol/L (98-107) Carbon Dioxide Level 27 mmol/L (21-32) Anion Gap 12 (6-14) Blood Urea Nitrogen 47 mg/dL (8-26) Creatinine 4.1 mg/dL (0.7-1.3) Estimated GFR (Cockcroft-Gault) 14.4 BUN/Creatinine Ratio 11 (6-20) Glucose Level 120 mg/dL (70-99) Calcium Level 7.7 mg/dL (8.5-10.1) Total Bilirubin 0.8 mg/dL (0.2-1.0) Aspartate Amino Transf (AST/SGOT) 31 U/L (15-37) Alanine Aminotransferase (ALT/SGPT) 41 U/L (16-63) Alkaline Phosphatase 116 U/L (46-116) Total Protein 6.6 g/dL (6.4-8.2) Albumin 2.3 g/dL (3.4-5.0) Albumin/Globulin Ratio 0.5 (1.0-1.7) Comment Review of Relevant I have reviewed the following items kate (where applicable) has been applied. Medications: Current Medications Medications (Trade) Dose Ordered Sig/Mariza Route PRN Reason Start Time Stop Time Status Last Admin Dose Admin Epoetin Curt (PROCRIT for DIALYSIS PTS) 20,000 unit 1X ONCE SQ 04/03/22 21:00 04/03/22 21:01 DC 04/03/22 20:59 Ceftriaxone Sodium (Rocephin) 2 gm Q24H IVP 04/03/22 17:00 04/03/22 17:00 Justifications for Admission General Conditions Poss hypotension?: Yes Justification for admission: Patient has hypotension (SBP < 90 mm Hg) which is not readily corrected by appropriate treatment within 12 to 24 hours. Poss Metaboilic Acidosis?: Yes Justification for admission: Patient has tachycardia (> 100 beats per minute) or hypotension (SBP < 90 mm Hg) leading to inadequate systemic perfusion as indicated by metabolic acidosis with arterial pH of less than 7.35. Other Justification SHELIA FREITAS MD April 04, 2022 11:25
[2022-04-04] MEDS: DOCUSATE SODIUM 100 MG CAPSULE. PO SCH ×2 (11:37→20:16)
[2022-04-04] MEDS: ZINC SULFATE 220 MG CAPSULE. PO SCH (11:38)
[2022-04-04] MEDS: HYDROcodone/APAP 5/325MG 1 TAB TABLET PO PRN ×2 (11:38→18:21)
[2022-04-04] MEDS: APIXABAN 2.5 MG TABLET. PO SCH ×2 (11:38→20:16)
[2022-04-04] MEDS: ASCORBIC ACID 500 MG TABLET PO SCH (11:38)
[2022-04-04] MEDS: THIAMINE 100 MG TABLET. PO SCH (11:38)
[2022-04-04] MEDS: CETIRIZINE HCL 10 MG TABLET. PO SCH (11:38)
[2022-04-04] MEDS: LACTOBACILLUS RHAMNOSUS GG 1 CAPSULE. PO SCH ×2 (11:41→20:16)
[2022-04-04] MEDS ORDERED: VANCOMYCIN 2 GM in IV NORMAL SALINE 500ML BAG 500 ML IV ONE (14:00)
[2022-04-04] MEDS: VANCOMYCIN PER PHARMACY MC PRN ×2 (14:11→14:17)
--- NOTE | 2022-04-04 14:15 | NUR ---
Pharmacy Vancomycin Dosing Note S:Consulted to monitor and dose vancomycin started 04/04/22. O:ALEISHA NARAYAN is a 71 year old M with possible diskitis . Height: 5 feet, 7 inches Weight: 81.6 kg Bivins Body Weight: 204.10 Adjusted Body Weight: 155.06 Dosing Weight: Actual Other Antibiotics: LABS: Last BUN: 47 Last Creatinine: 4.1 Creatinine Clearance: TThSa HD mL/min Last WBC: 9.4 Last Procalcitonin: Tmax (past 24 hours): 100.2 Microbiology: I/O: Drug Levels: Last level: on at Last dose given at Vancomycin Dosing: Loading Dose: 2000 mg x1 Dosing Weight: Actual Target Trough: 15-20 A: Based on: weight and renal function P: 1. Dose Vancomycin 2000 mg IV One Time 2. Follow up Random level on 04/06/22 at 0500 before dialysis 3. Pharmacy will continue to monitor, follow and adjust therapy as needed. Claudia Geronimo [facility], 04/04/22 [id number]
--- NOTE | 2022-04-04 15:32 | RAD ---
CT cervical spine without contrast PQRS statement: CT scans at this facility use dose reduction including either automated exposure cont rol, iterative reconstructions, and /or weight based radiation dosing via mA and kV modification when appropriate to reduce radiation dose to as low as reasonably achievable. HISTORY: Neck pain. covid infection. Discitis. COMPARISON: CT cervical spine January 31, 2022. FINDINGS: Craniocervical junction is intact. Cervical vertebral body height and alignment. No fractur e. There are bulky bridging anterior disc osteophytes across the cervical spine and upper thoracic sp ine. There is ossification of the posterior longitudinal ligament from C2 through C6 which combined w ith disc bulges and disc osteophytes contribute to multiple levels of spinal canal stenosis which is likely severe at C2-C3 through C5-C6. Neural foraminal stenoses due to uncovertebral spurring at simin ral levels, likely moderate to severe at C3-C4 and C4-C5. These findings are stable to prior exam. Th ere is no increasing disc height loss or vertebral endplate irregularity or bone demineralization or bone destruction or periostitis to localize a potential site of discitis or osteomyelitis. There is n ew prevertebral soft tissue edema anteriorly bulky disc osteophytes at the C2-C6 vertebral levels bes t demonstrated sagittal image 35, this results in some greater anterior displacement of the posterior wall of the pharynx. There are couple of nodules at the left lung apex measuring up to 4 mm. IMPRESSION: 1. No acute osseous injury. 2. Diffuse idiopathic skeletal hyperostosis, ossification of posterior longitudinal ligament, and cer vical disc disease and uncovertebral arthritis with bone spurring contributes to multiple levels of s madiha canal and neural foraminal stenoses, stable to the prior exam. 3. There is new prevertebral soft tissue edema at the C2-C6 vertebral levels mildly displacing the po sterior wall of the pharynx and larynx anteriorly. There is no disc space narrowing, bone demineraliz ation, bone destruction or periostitis of the underlying cervical spine to localize a potential site of discitis or osteomyelitis to account for this edema. Etiology of this edema is indeterminate. This could be due to soft tissue infection or inflammatory edema from inflammation of the longus coli mus cles. This could be further assessed with MR imaging. 4. 2 left upper lobe apical nodules largest measuring 4 mm. Attention on follow-up CT chest imaging i n 6 months is advised. Electronically signed by: Gregory Garnica MD (04/04/2022 3:30 PM) [facility]
--- NOTE | 2022-04-04 15:38 | NUR ---
SS following up with discharge planning. SS reviewed pt chart and discussed with pt RN. Pt is currently requiring oxygen at two liters nasal canula. COVID19 positive. Pt has outpatient hemodialysis at [facility], ; fax [phone], Friday, , and Friday. Per [facility] pt can return to there clinic on 04/09/2022. PT/OT ordered. Pt on IV Rocephin. OT recommended [facility] unit. SS will continue to follow for discharge planning.
[2022-04-04] MEDS: cefTRIAXone IV Push 2 GM VIAL. IVP SCH (17:14)
[2022-04-04] MEDS: GABAPENTIN 300 MG CAPSULE. PO SCH (20:16)
[2022-04-04] MEDS: ATORVASTATIN CALCIUM 40 MG TABLET. PO SCH (20:16)
[2022-04-04] MEDS: INSULIN GLARGINE SYRINGE. SQ SCH (20:18)
--- NOTE | 2022-04-04 23:36 | CONS ---
DATE OF CONSULTATION: 04/04/2022 REQUESTING PHYSICIAN: Dr. Art. REASON FOR CONSULTATION: Blood culture positive. HISTORY OF PRESENT ILLNESS: This is a 71-year-old gentleman who was transferred from [place]. The patient presented there with chest congestion and then he went to [facility]. He was positive. The patient apparently was short of breath, although not hypoxic. He had low-grade fever here at 100.2, now complaining of severe neck pain, which started 4 days ago, he says. His white count was 13.8 and a blood culture is positive from [place]. Verbal report is gram-positive cocci. The patient denies any nausea, vomiting. Denies any diarrhea, chest pain, shortness of breath, abdominal pain, urinary symptoms or bowel symptoms. Just complaining of significant neck and shoulder pain. The patient denies any photophobia. The patient denies any headache. PAST MEDICAL HISTORY: Positive for end-stage renal disease, on hemodialysis, congestive heart failure, ischemic cardiomyopathy, has AICD in place, hypertension, hyperlipidemia, gastroesophageal reflux disease, diabetes. SOCIAL HISTORY: Negative for smoking, alcohol, or illicit drug use. ALLERGIES: No known drug allergies. CURRENT MEDICATIONS: The patient is on ceftriaxone. REVIEW OF SYSTEMS: As in HPI. All other systems reviewed are negative. PHYSICAL EXAMINATION: GENERAL: Alert, oriented gentleman, not in distress. VITAL SIGNS: Temperature 99.0 with a T-max 100.2, pulse 60, respirations 18, blood pressure 117/54. HEENT: Both pupils are round and reacting. No conjunctival lesion, no lesion in the mouth. NECK: Supple, no JVP, no lymphadenopathy. LUNGS: Clear. HEART: S1, S2, regular. ABDOMEN: Soft, nontender, no organomegaly. EXTREMITIES: No edema, cyanosis. SKIN: Unremarkable. MUSCULOSKELETAL: In particular, his neck is stiff, but it is difficult to evaluate since his muscles are very tight in the neck and the pain is in the middle of the neck as well as has radiation into the bilateral shoulders. NEUROLOGIC: The patient is alert, awake, and appropriate. No focal neurologic deficit. LABORATORY DATA: [place] [address] [place] 9000. BUN and creatinine is 47 and 4.1. The cultures from [place] are in process of obtaining it. IMPRESSION: 1. Blood culture positive from [place], gram-positive cocci. 2. Severe neck pain, rule out diskitis. 3. End-stage renal disease, on hemodialysis. 4. COVID-19 positive. 5. Automatic implantable cardioverter-defibrillator in place. 6. Cardiomyopathy. RECOMMEND: Continue Rocephin. Add vancomycin. We will obtain the cultures from [place]. We will also get CT scan of the neck. Supportive care. We will continue to follow. Thank you very much, Dr. Art, for giving me opportunity to participate in this patient's care. AMERICA/NOEMI PATEL: Mark Anthony TID: [id number]
[2022-04-05 02:39] VITALS: BP 85/39
[2022-04-05] MEDS: PANTOPRAZOLE 40 MG TABLET.DR. PO SCH ×2 (06:44→09:16)
[2022-04-05 07:00] VITALS: BP 105/38
--- NOTE | 2022-04-05 08:32 | PDOC ---
Infectious Disease Note Subjective Subjective pt is feeling good ROS ROS no n/v/d/sob Vital Sign Vital Signs Vital Signs Date Time Temp Pulse Resp B/P (MAP) Pulse Ox O2 Delivery O2 Flow Rate FiO2 04/05/22 02:39 98.5 86 18 85/39 (54) 94 Room Air 98.5 04/04/22 11:00 2.0 Physical Exam PHYSICAL EXAM GENERAL: Alert, oriented gentleman, not in distress. VITAL SIGNS: stable HEENT: Both pupils are round and reacting. No conjunctival lesion, no lesion in the mouth. NECK: Supple, no JVP, no lymphadenopathy. LUNGS: Clear. HEART: S1, S2, regular. ABDOMEN: Soft, nontender, no organomegaly. EXTREMITIES: No edema, cyanosis. SKIN: Unremarkable. MUSCULOSKELETAL: In particular, his neck is stiff, but it is difficult to evaluate since his muscles are very tight in the neck and the pain is in the middle of the neck as well as has radiation into the bilateral shoulders. NEUROLOGIC: The patient is alert, awake, and appropriate. No focal neurologic deficit. Labs Lab Laboratory Tests Test 04/04/22 11:46 04/04/22 17:09 04/04/22 20:01 Glucose (Fingerstick) 88 mg/dL (70-99) 197 mg/dL (70-99) 309 mg/dL (70-99) Objective Assessment IMPRESSION: 1. Blood culture positive from [place], gram-positive cocci. 2. Severe neck pain, rule out diskitis. 3. End-stage renal disease, on hemodialysis. 4. COVID-19 positive. 5. Automatic implantable cardioverter-defibrillator in place. 6. Cardiomyopathy. Plan Plan of Care ct neck neg for infection cont antibiotics culture results from [place] still pending RAJESH SANCHEZ MD April 05, 2022 08:31
[2022-04-05 08:53] LABS: ALBUMIN 2.3 g/dL (3.4-5.0); ALBUMIN/GLOBULIN RATIO 0.5 (1.0-1.7); CALCIUM 7.9 mg/dL (8.5-10.1); CREATININE 3.4 mg/dL (0.7-1.3); GFR 17.9; POTASSIUM 3.6 mmol/L (3.5-5.1); TOTAL BILIRUBIN 0.7 mg/dL (0.2-1.0); TOTAL PROTEIN 6.9 g/dL (6.4-8.2)
[2022-04-05] MEDS: THIAMINE 100 MG TABLET. PO SCH (09:15)
[2022-04-05] MEDS: LACTOBACILLUS RHAMNOSUS GG 1 CAPSULE. PO SCH ×2 (09:15→20:41)
[2022-04-05] MEDS: ZINC SULFATE 220 MG CAPSULE. PO SCH (09:15)
[2022-04-05] MEDS: DOCUSATE SODIUM 100 MG CAPSULE. PO SCH ×2 (09:16→20:41)
[2022-04-05] MEDS: APIXABAN 2.5 MG TABLET. PO SCH ×2 (09:16→20:41)
[2022-04-05] MEDS: ASCORBIC ACID 500 MG TABLET PO SCH (09:16)
[2022-04-05] MEDS: CETIRIZINE HCL 10 MG TABLET. PO SCH (09:16)
[2022-04-05] MEDS: INSULIN LISPRO 300 UNITS/3 ML VIAL. SQ SCH ×4 (09:18→20:40)
[2022-04-05] MEDS: HYDROcodone/APAP 5/325MG 1 TAB TABLET PO PRN (09:29)
--- NOTE | 2022-04-05 11:17 | PDOC ---
Renal-Progress Notes Subjective Notes Notes NO NEW COMPLAINTS History of Present Illness Hx of present illness STABLE Vitals Vitals Vital Signs Date Time Temp Pulse Resp B/P (MAP) Pulse Ox O2 Delivery O2 Flow Rate FiO2 04/05/22 09:59 92 Room Air 2.0 04/05/22 07:00 97.8 82 18 105/38 (60) 97.8 Weight Weight [ ] I.O. Intake and Output Intake and Output 04/05/22 07:00 Intake Total 700 ml Balance 700 ml Intake Oral 200 ml IV Total 500 ml Labs Labs Laboratory Tests Test 04/04/22 11:46 04/04/22 17:09 04/04/22 20:01 04/05/22 07:15 Glucose (Fingerstick) 88 mg/dL (70-99) 197 mg/dL (70-99) 309 mg/dL (70-99) Sodium Level 136 mmol/L (136-145) Potassium Level 3.6 mmol/L (3.5-5.1) Chloride Level 96 mmol/L (98-107) Carbon Dioxide Level 28 mmol/L (21-32) Anion Gap 12 (6-14) Blood Urea Nitrogen 30 mg/dL (8-26) Creatinine 3.4 mg/dL (0.7-1.3) Estimated GFR (Cockcroft-Gault) 17.9 BUN/Creatinine Ratio 9 (6-20) Glucose Level 145 mg/dL (70-99) Calcium Level 7.9 mg/dL (8.5-10.1) Total Bilirubin 0.7 mg/dL (0.2-1.0) Aspartate Amino Transf (AST/SGOT) 39 U/L (15-37) Alanine Aminotransferase (ALT/SGPT) 47 U/L (16-63) Alkaline Phosphatase 142 U/L (46-116) Total Protein 6.9 g/dL (6.4-8.2) Albumin 2.3 g/dL (3.4-5.0) Albumin/Globulin Ratio 0.5 (1.0-1.7) Test 04/05/22 08:29 Glucose (Fingerstick) 154 mg/dL (70-99) Review of Systems Constitutional: yes: weakness, alert Ears/Nose/Throat: Yes: no symptom reported Eyes: Yes: no symptom reported Pulmonary: Yes dyspnea Cardiovascular: Yes no symptom reported Gastrointestional: Yes: no symptom reported Genitourinary: Yes: no symptom reported Musculoskeletal: Yes: no symptom reported Skin: Yes no symptom reported Psychiatric/Neurological: Yes: no symptom reported Physical Exam General Appearance: no apparent distress Skin: warm Respiratory: decreased breath sounds Heart: S1S2 Abdomen: soft Genitourinary: bladder flat Extremities: pulses present Neurology: alert Musculoskeletal: Osteoarthritis Assessment Assessment IMP [id number] IJ TDC ANEMIA DM II HTN HX HYPOTENSION COVID 19 VIRAL SYNDROME WITH MYALGIAS HX OF CM WITH PPM PLAN HD TOMORROW MIN UF CONT HEMA COVID 19 PROTOCOL SUPPORTIVE CARE WILL FOLLOW MARVIN CHO MD April 05, 2022 11:17
--- NOTE | 2022-04-05 11:30 | PDOC ---
[employer] PROGRESS NOTE Date of Service DOS: DATE: 04/05/22 TIME: 11:27 Chief Complaint Chief Complaint COVID 19 - supportive care. Monitor O2 saturations, maintain > 89%. If hypoxic will initiate decadron and remdesivir therapy; Weakness - likely related to COVID 19, also with some uremia Myalgias - viral syndrome ESRD - with uremia. Consult nephrology for missed dialysis session. Started dialysis this past November 2021, has RIJ tunneled dialysis catheter Cardiomyopathy - ischemic by history, s/p AICD [facility] paced rhythm with underlying afib HTN - low BP since HLD - statin DM2 - basal bolus plus insulin while inpatient Chronic AFIB - rate controlled with pacer AICD CAD - prior PCI. Sees Dr. Sena through the [facility] H/o UTI - morganella UTI in January 2022 Severe malnutrition History of Present Illness History of Present Illness 04/05 Evaluate examined at bedside. A bit lethargic but improving. Nephrology infectious disease recommendations reviewed. Waiting on [place] culture results still. Continue IV antibiotics. Dialysis tomorrow. Therapy modalities. 04/04 Patient evaluated undergoing dialysis. He is a bit lethargic but no major complaints. Continue current. Therapy evaluation for possible placement. Discussed with bedside RN. [employer] Crus[employer] Operator recommendations reviewed. 04/03: Patient afebrile, resting comfortably on room air. Denies any shortness of breath. Reports some muscle aches in his neck, shoulders, and proximal legs. States he has not had dialysis and few days due to his weakness. Potassium 4.1; I doubt there is any urgent need for dialysis at this time, but will wait for nephrology impression. Vitals/I&O Vitals/I&O: Vital Signs Date Time Temp Pulse Resp B/P (MAP) Pulse Ox O2 Delivery O2 Flow Rate FiO2 04/05/22 09:59 92 Room Air 2.0 04/05/22 07:00 97.8 82 18 105/38 (60) 97.8 I & O 04/04/22 04/04/22 04/05/22 15:00 23:00 07:00 Intake Total 500 ml 200 ml Balance 500 ml 200 ml Physical Exam Physical Exam: GENERAL: Alert, oriented gentleman, not in distress. VITAL SIGNS: stable HEENT: Both pupils are round and reacting. No conjunctival lesion, no lesion in the mouth. NECK: Supple, no JVP, no lymphadenopathy. LUNGS: Clear. HEART: S1, S2, regular. ABDOMEN: Soft, nontender, no organomegaly. EXTREMITIES: No edema, cyanosis. SKIN: Unremarkable. MUSCULOSKELETAL: In particular, his neck is stiff, but it is difficult to evaluate since his muscles are very tight in the neck and the pain is in the middle of the neck as well as has radiation into the bilateral shoulders. NEUROLOGIC: The patient is alert, awake, and appropriate. No focal neurologic deficit. General: Alert, Cooperative, No acute distress Heart: Regular rate Lungs: Clear Abdomen: Normal bowel sounds, Soft, No tenderness Extremities: No clubbing Skin: No rashes Labs Labs: Laboratory Tests Test 04/04/22 11:46 04/04/22 17:09 04/04/22 20:01 04/05/22 07:15 Glucose (Fingerstick) 88 mg/dL (70-99) 197 mg/dL (70-99) 309 mg/dL (70-99) Sodium Level 136 mmol/L (136-145) Potassium Level 3.6 mmol/L (3.5-5.1) Chloride Level 96 mmol/L (98-107) Carbon Dioxide Level 28 mmol/L (21-32) Anion Gap 12 (6-14) Blood Urea Nitrogen 30 mg/dL (8-26) Creatinine 3.4 mg/dL (0.7-1.3) Estimated GFR (Cockcroft-Gault) 17.9 BUN/Creatinine Ratio 9 (6-20) Glucose Level 145 mg/dL (70-99) Calcium Level 7.9 mg/dL (8.5-10.1) Total Bilirubin 0.7 mg/dL (0.2-1.0) Aspartate Amino Transf (AST/SGOT) 39 U/L (15-37) Alanine Aminotransferase (ALT/SGPT) 47 U/L (16-63) Alkaline Phosphatase 142 U/L (46-116) Total Protein 6.9 g/dL (6.4-8.2) Albumin 2.3 g/dL (3.4-5.0) Albumin/Globulin Ratio 0.5 (1.0-1.7) Test 04/05/22 08:29 Glucose (Fingerstick) 154 mg/dL (70-99) Comment Review of Relevant I have reviewed the following items kate (where applicable) has been applied. Medications: Current Medications Medications (Trade) Dose Ordered Sig/Mariza Route PRN Reason Start Time Stop Time Status Last Admin Dose Admin Vancomycin HCl (Vanco Per Pharmacy) 1 each PRN DAILY PRN MC SEE COMMENTS 04/04/22 13:30 04/04/22 14:17 Vancomycin HCl 2 gm/Sodium Chloride 500 ml @ 250 mls/hr 1X ONCE IV 04/04/22 14:00 04/04/22 15:59 DC 04/04/22 15:32 Justifications for Admission General Conditions Poss hypotension?: Yes Justification for admission: Patient has hypotension (SBP < 90 mm Hg) which is not readily corrected by appropriate treatment within 12 to 24 hours. Poss Metaboilic Acidosis?: Yes Justification for admission: Patient has tachycardia (> 100 beats per minute) or hypotension (SBP < 90 mm Hg) leading to inadequate systemic perfusion as indicated by metabolic acidosis with arterial pH of less than 7.35. Other Justification SHELIA FREITAS MD April 05, 2022 11:29
--- NOTE | 2022-04-05 12:07 | NUR ---
Wound/Ostomy Care Wound Type/Assessment: Pt has superficial skin tear to right anterior rider from getting off his tractor. He also has a peeling blister to left plantar/medial great toe with a central ulcer that is slough covered. Cleansed, assessed and redressed wound. Treatment Recommendations/Plan: Left great toe- apply iodoflex and foam, change every 2-3 days. Right rider- leave foam in place for 1 week. Education provided: WC POC and PU prevention discussed, pt V/U. Discussed causes of DFU's and ways to avoid them Offloading surface/device: Patient has diabetic shoes that are over a year old. Recommended Referrals/Tests: Recommend vascular assessment as this is a recurring wound Discharge Recommendations for dressings: see above
[2022-04-05] MEDS: VANCOMYCIN PER PHARMACY MC PRN (13:09)
--- NOTE | 2022-04-05 13:09 | NUR ---
Pharmacy Vancomycin Dosing Note S: Consulted to monitor and dose vancomycin started 04/04/22. O: ALEISHA NARAYAN W is a 71 year old M with Bacteremia, ?Diskitis . Other Antibiotics: ROCEPHIN LABS: Last BUN: 30 Last Creatinine: 3.4 Creatinine Clearance: TThSa HD mL/min Last WBC: 9.4 Tmax (past 24 hours): 99 Microbiology: gm(+) cocci in 1/3 bottles Vancomycin Dosing: Dosing Weight: Actual Target Trough: 15-20 P: 1. Vancomycin 500 mg IV POST DIALYSIS 2. Follow up Random level on 04/06/22 at 0500 3. Pharmacy will continue to monitor, follow and adjust therapy as needed. SRAVANTHI REYES [facility], 04/05/22 1310
[2022-04-05 15:00] VITALS: BP 86/41
[2022-04-05] MEDS: cefTRIAXone IV Push 2 GM VIAL. IVP SCH (16:58)
[2022-04-05 19:53] VITALS: BP 93/48
[2022-04-05] MEDS: INSULIN GLARGINE SYRINGE. SQ SCH (20:39)
[2022-04-05] MEDS: ATORVASTATIN CALCIUM 40 MG TABLET. PO SCH (20:41)
[2022-04-05] MEDS: GABAPENTIN 300 MG CAPSULE. PO SCH (20:41)
[2022-04-05 22:41] VITALS: BP 102/48
[2022-04-06 03:46] VITALS: BP 92/50
[2022-04-06] MEDS ORDERED: VANCOMYCIN RANDOM LEVEL. MC ONE (05:00)
[2022-04-06 07:00] VITALS: BP 98/51
--- NOTE | 2022-04-06 07:26 | NUR ---
Jef had a 8 beat run of V-Tach. Dr. Art notified. NNO. Will continue to monitor
[2022-04-06] MEDS: INSULIN LISPRO 300 UNITS/3 ML VIAL. SQ SCH ×4 (07:30→21:02)
[2022-04-06] MEDS: CETIRIZINE HCL 10 MG TABLET. PO SCH (08:06)
[2022-04-06] MEDS: LACTOBACILLUS RHAMNOSUS GG 1 CAPSULE. PO SCH ×2 (08:06→21:00)
[2022-04-06] MEDS: ASCORBIC ACID 500 MG TABLET PO SCH (08:06)
[2022-04-06] MEDS: ZINC SULFATE 220 MG CAPSULE. PO SCH (08:06)
[2022-04-06 08:07] LABS: ALBUMIN/GLOBULIN RATIO 0.4 (1.0-1.7); CREATININE 4.9 mg/dL (0.7-1.3); GFR 11.7; POTASSIUM 3.7 mmol/L (3.5-5.1); TOTAL BILIRUBIN 0.7 mg/dL (0.2-1.0); TOTAL PROTEIN 6.5 g/dL (6.4-8.2)
[2022-04-06] MEDS: DOCUSATE SODIUM 100 MG CAPSULE. PO SCH ×2 (08:07→21:00)
[2022-04-06] MEDS: THIAMINE 100 MG TABLET. PO SCH (08:07)
[2022-04-06] MEDS: APIXABAN 2.5 MG TABLET. PO SCH ×2 (08:07→21:00)
[2022-04-06] MEDS: guaiFENesin DM 200MG/20MG 10 ML SYRUP PO PRN ×2 (08:30→15:35)
[2022-04-06] MEDS ORDERED: ALBUMIN HUMAN 25% 200 ML IV PRN (08:30)
[2022-04-06] MEDS ORDERED: DIALYSIS PATIENT. MC PRN ×2 (08:30)
[2022-04-06] MEDS: HYDROcodone/APAP 5/325MG 1 TAB TABLET PO PRN ×2 (08:52→15:35)
[2022-04-06] MEDS: VANCOMYCIN PER PHARMACY MC PRN (11:58)
--- NOTE | 2022-04-06 12:00 | NUR ---
NURSING PT RETURNS FROM DIALYSIS. THEY DID NOT TAKE ANY FLUID OFF, BP WAS LABILE. PT IS A&O, THOUGH TIRED UPON RETURN TO ROOM. MEAL TRAY OFFERED.
--- NOTE | 2022-04-06 12:29 | PDOC ---
PROGRESS NOTES Date of Service DATE: 04/06/22 TIME: 12:26 Subjective Subjective IN FOLLOW UP OF ESRD Objective Objective Vital Signs Date Time Temp Pulse Resp B/P (MAP) Pulse Ox O2 Delivery O2 Flow Rate FiO2 04/06/22 09:22 95 Room Air 2.0 04/06/22 08:52 16 04/06/22 07:00 99.2 89 98/51 (67) 99.2 Intake and Output 04/06/22 07:00 Intake Total 920 ml Balance 920 ml Intake Oral 920 ml Physical Exam COMMENT COVID 19 + SO NO BEDSIDE EXAM Diagnosis RENAL FAILURE: ESRD Plan Plan of Care DIALYSIS TODAY AND TOLERATED. DISCUSSED WITH DIALYSIS NURSE. CONT RX FOR COVID 19 Comment Review of Relevant I have reviewed the following items kate (where applicable) has been applied. Labs Laboratory Tests Test 04/04/22 17:09 04/04/22 20:01 04/05/22 07:15 04/05/22 08:29 Glucose (Fingerstick) 197 mg/dL (70-99) 309 mg/dL (70-99) 154 mg/dL (70-99) Sodium Level 136 mmol/L (136-145) Potassium Level 3.6 mmol/L (3.5-5.1) Chloride Level 96 mmol/L (98-107) Carbon Dioxide Level 28 mmol/L (21-32) Anion Gap 12 (6-14) Blood Urea Nitrogen 30 mg/dL (8-26) Creatinine 3.4 mg/dL (0.7-1.3) Estimated GFR (Cockcroft-Gault) 17.9 BUN/Creatinine Ratio 9 (6-20) Glucose Level 145 mg/dL (70-99) Calcium Level 7.9 mg/dL (8.5-10.1) Total Bilirubin 0.7 mg/dL (0.2-1.0) Aspartate Amino Transf (AST/SGOT) 39 U/L (15-37) Alanine Aminotransferase (ALT/SGPT) 47 U/L (16-63) Alkaline Phosphatase 142 U/L (46-116) Total Protein 6.9 g/dL (6.4-8.2) Albumin 2.3 g/dL (3.4-5.0) Albumin/Globulin Ratio 0.5 (1.0-1.7) Test 04/05/22 13:53 04/05/22 16:50 04/05/22 20:00 04/06/22 07:00 Glucose (Fingerstick) 209 mg/dL (70-99) 199 mg/dL (70-99) 226 mg/dL (70-99) Sodium Level 134 mmol/L (136-145) Potassium Level 3.7 mmol/L (3.5-5.1) Chloride Level 95 mmol/L (98-107) Carbon Dioxide Level 27 mmol/L (21-32) Anion Gap 12 (6-14) Blood Urea Nitrogen 44 mg/dL (8-26) Creatinine 4.9 mg/dL (0.7-1.3) Estimated GFR (Cockcroft-Gault) 11.7 BUN/Creatinine Ratio 9 (6-20) Glucose Level 143 mg/dL (70-99) Calcium Level 8.0 mg/dL (8.5-10.1) Total Bilirubin 0.7 mg/dL (0.2-1.0) Aspartate Amino Transf (AST/SGOT) 50 U/L (15-37) Alanine Aminotransferase (ALT/SGPT) 46 U/L (16-63) Alkaline Phosphatase 175 U/L (46-116) Total Protein 6.5 g/dL (6.4-8.2) Albumin 2.0 g/dL (3.4-5.0) Albumin/Globulin Ratio 0.4 (1.0-1.7) Random Vancomycin Level 23.1 mcg/mL Test 04/06/22 08:13 04/06/22 12:10 Glucose (Fingerstick) 142 mg/dL (70-99) 110 mg/dL (70-99) Laboratory Tests Test 04/05/22 13:53 04/05/22 16:50 04/05/22 20:00 04/06/22 07:00 Glucose (Fingerstick) 209 mg/dL (70-99) 199 mg/dL (70-99) 226 mg/dL (70-99) Sodium Level 134 mmol/L (136-145) Potassium Level 3.7 mmol/L (3.5-5.1) Chloride Level 95 mmol/L (98-107) Carbon Dioxide Level 27 mmol/L (21-32) Anion Gap 12 (6-14) Blood Urea Nitrogen 44 mg/dL (8-26) Creatinine 4.9 mg/dL (0.7-1.3) Estimated GFR (Cockcroft-Gault) 11.7 BUN/Creatinine Ratio 9 (6-20) Glucose Level 143 mg/dL (70-99) Calcium Level 8.0 mg/dL (8.5-10.1) Total Bilirubin 0.7 mg/dL (0.2-1.0) Aspartate Amino Transf (AST/SGOT) 50 U/L (15-37) Alanine Aminotransferase (ALT/SGPT) 46 U/L (16-63) Alkaline Phosphatase 175 U/L (46-116) Total Protein 6.5 g/dL (6.4-8.2) Albumin 2.0 g/dL (3.4-5.0) Albumin/Globulin Ratio 0.4 (1.0-1.7) Random Vancomycin Level 23.1 mcg/mL Test 04/06/22 08:13 04/06/22 12:10 Glucose (Fingerstick) 142 mg/dL (70-99) 110 mg/dL (70-99) Microbiology 04/04/22 Blood Culture - Final, Complete Medications Current Medications Acetaminophen/ Hydrocodone Bitart (Lortab 5/325) 1 tab PRN Q6HRS PRN PO PAIN SEVERE Last administered on 04/06/22at 08:52; Start 04/02/22 at 21:00 Zinc Sulfate (Orazinc) 220 mg DAILY PO Last administered on 04/06/22at 08:06; Start 04/03/22 at 09:00 Thiamine Mononitrate (Vitamin B-1) 100 mg DAILY PO Last administered on 04/06/22at 08:07; Start 04/03/22 at 09:00 Ascorbic Acid (Vitamin C) 500 mg DAILY PO Last administered on 04/06/22at 08:06; Start 04/03/22 at 09:00 Acetaminophen (Tylenol) 650 mg PRN Q6HRS PRN PO MILD PAIN / TEMP > 100.3'F Last administered on 04/03/22at 22:45; Start 04/02/22 at 21:00 Heparin Sodium (Porcine) (Heparin Sodium) 5,000 unit Q8HRS SQ ; Start 04/02/22 at 22:00; Stop 04/02/22 at 21:19; Status DC Hydralazine HCl (Apresoline Inj) 10 mg PRN Q4HRS PRN IVP ELEVATED BP, SEE COMMENTS; Start 04/02/22 at 21:00 Nitroglycerin (Nitrostat) 0.4 mg PRN Q5MIN PRN SL CHEST PAIN; Start 04/02/22 at 21:00 Ondansetron HCl (Zofran Odt) 4 mg PRN Q4HRS PRN PO NAUSEA; Start 04/02/22 at 21:00 Guaifenesin (Robitussin Dm) 10 ml PRN Q6HRS PRN PO COUGH Last administered on 04/06/22at 08:30; Start 04/02/22 at 21:00 Ondansetron HCl (Zofran) 4 mg PRN Q4HRS PRN IVP NAUSEA/VOMITING; Start 04/02/22 at 21:00 Tramadol HCl (Ultram) 50 mg PRN Q6HRS PRN PO PAIN MODERATE Last administered on 04/02/22at 22:01; Start 04/02/22 at 21:00 Fentanyl Citrate (Fentanyl 2ml Vial) 25 mcg PRN Q3HRS PRN IVP SEVERE PAIN 7-10; Start 04/02/22 at 21:00 Insulin Human Lispro (HumaLOG) 0-9 UNITS TIDACHC SQ Last administered on 04/05/22at 20:40; Start 04/02/22 at 21:30 Dextrose (Dextrose 50%-Water Syringe) 12.5 gm PRN Q15MIN PRN IV SEE COMMENTS; Start 04/02/22 at 21:00 Docusate Sodium (Colace) 100 mg BID PO Last administered on 04/06/22at 08:07; Start 04/02/22 at 21:30 Albumin Human 250 ml @ 62.5 mls/hr PRN DAILY PRN IV HYPOTENSION; Start 04/02/22 at 21:00 Apixaban (Eliquis) 2.5 mg BID PO Last administered on 04/06/22at 08:07; Start 04/02/22 at 21:30 Cetirizine HCl (ZyrTEC) 10 mg DAILY PO Last administered on 04/06/22at 08:06; Start 04/03/22 at 09:00 Pantoprazole Sodium (Protonix) 40 mg DAILYAC PO Last administered on 04/05/22at 09:16; Start 04/03/22 at 07:30 Gabapentin (Neurontin) 300 mg HS PO Last administered on 04/05/22at 20:41; Start 04/02/22 at 21:30 Insulin Glargine (Lantus Syringe) 22 unit QHS SQ Last administered on 04/05/22at 20:39; Start 04/02/22 at 21:30 Atorvastatin Calcium (Lipitor) 80 mg QHS PO Last administered on 04/05/22at 20:41; Start 04/02/22 at 21:30 Sodium Chloride 1,000 ml @ 1,000 mls/hr Q1H PRN IV hypotension; Start 04/03/22 at 10:00; Stop 04/03/22 at 15:59; Status DC Albumin Human 200 ml @ 200 mls/hr 1X PRN PRN IV Hypotension; Start 04/03/22 at 10:00; Stop 04/03/22 at 15:59; Status DC Sodium Chloride (Normal Saline Flush) 10 ml 1X PRN PRN IV AP catheter pack; Start 04/03/22 at 10:00; Stop 04/04/22 at 09:59; Status DC Sodium Chloride (Normal Saline Flush) 10 ml 1X PRN PRN IV [employer]IENT [employer] DRIVER catheter pack; Start 04/03/22 at 10:00; Stop 04/04/22 at 09:59; Status DC Sodium Chloride 1,000 ml @ 400 mls/hr Q2H30M PRN IV PATENCY; Start 04/03/22 at 10:00; Stop 04/03/22 at 21:59; Status DC Info (PHARMACY MONITORING -- do not chart) 1 each PRN DAILY PRN MC SEE COMMENTS; Start 04/03/22 at 10:00; Status Cancel Info (PHARMACY MONITORING -- do not chart) 1 each PRN DAILY PRN MC SEE COMMENTS; Start 04/03/22 at 10:00; Status UNV Epoetin Curt (PROCRIT for DIALYSIS PTS) 20,000 unit 1X ONCE SQ Last administered on 04/03/22at 20:59; Start 04/03/22 at 21:00; Stop 04/03/22 at 21:01; Status DC Ceftriaxone Sodium (Rocephin) 2 gm Q24H IVP Last administered on 04/05/22at 16:58; Start 04/03/22 at 17:00 Sodium Chloride 1,000 ml @ 1,000 mls/hr Q1H PRN IV hypotension; Start 04/04/22 at 06:45; Stop 04/04/22 at 12:44; Status DC Sodium Chloride 1,000 ml @ 400 mls/hr Q2H30M PRN IV PATENCY; Start 04/04/22 at 06:45; Stop 04/04/22 at 18:44; Status DC Info (PHARMACY MONITORING -- do not chart) 1 each PRN DAILY PRN MC SEE COMMENTS; Start 04/04/22 at 06:45 Lactobacillus Rhamnosus (Culturelle) 1 cap BID PO Last administered on 04/06/22at 08:06; Start 04/04/22 at 09:00 Vancomycin HCl (Vanco Per Pharmacy) 1 each PRN DAILY PRN MC SEE COMMENTS Last administered on 04/06/22at 11:58; Start 04/04/22 at 13:30 Vancomycin HCl 2 gm/Sodium Chloride 500 ml @ 250 mls/hr 1X ONCE IV Last administered on 04/04/22at 15:32; Start 04/04/22 at 14:00; Stop 04/04/22 at 15:59; Status DC Vancomycin HCl (Vancomycin Random Level) 1 each 1X ONCE MC Last administered on 04/06/22at 05:00; Start 04/06/22 at 05:00; Stop 04/06/22 at 05:01; Status DC Albumin Human 200 ml @ 200 mls/hr 1X PRN PRN IV Hypotension Last administered on 04/06/22at 09:05; Start 04/06/22 at 08:30; Stop 04/06/22 at 14:29 Info (PHARMACY MONITORING -- do not chart) 1 each PRN DAILY PRN MC SEE COMMENTS; Start 04/06/22 at 08:30; Status UNV Info (PHARMACY MONITORING -- do not chart) 1 each PRN DAILY PRN MC SEE COM MENTS; Start 04/06/22 at 08:30 Vancomycin HCl 500 mg/Dextrose 500 ml @ 500 mls/hr [id number] IV ; Start 04/09/22 at 16:00 Active Scripts Active Reported Vitamin D3 (Vitamin D) 25 Mcg Tablet 50 Mcg PO DAILY 1,000 UNITS = 25 MCG Spiriva (Tiotropium [place]) 18 Mcg Cap.w.dev 2 Inh IH DAILY Flecainide Acetate 100 Mg Tablet 1.5 Tab PO BID Butrans (Buprenorphine) 1 Each Patch.tdwk 1 Patch TP WEEKLY MDD 0.14 Patch(s) 28 Days Bumetanide 1 Mg Tablet 1 Tab PO QEVNG Proair Hfa Inhaler (Albuterol Sulfate) 8.5 Gm Hfa.aer.ad 2 Puff IH PRN Q4-6HRS PRN 21 Days Levemir (Insulin Detemir) 100 Unit/1 Ml Vial 24 Unit SQ HS Protonix (Pantoprazole Sodium) 40 Mg Tablet.dr 40 Mg PO DAILYAC Bumetanide 1 Mg Tablet 2 Tab PO DAILY Crestor (Rosuvastatin Calcium) 40 Mg Tablet 1 Tab PO DAILY Gabapentin 600 Mg Tablet 300 Mg PO HS Eliquis (Apixaban) 2.5 Mg Tablet 2.5 Mg PO BID Cetirizine Hcl 10 Mg Tablet 0.5 Tab PO DAILY Vitals/I & O Vital Sign - Last 24 Hours 04/05/22 04/05/22 04/05/22 04/05/22 15:00 19:53 20:13 22:41 Temp 96.5 98.1 98.5 96.5 98.1 98.5 Pulse 79 89 78 Resp 18 16 16 B/P (MAP) 86/41 (56) 93/48 (63) 102/48 (66) Pulse Ox 99 98 97 O2 Delivery Room Air Room Air Room Air Room Air 04/06/22 04/06/22 04/06/22 04/06/22 03:46 07:00 08:00 08:52 Temp 98.2 99.2 98.2 99.2 Pulse 76 89 Resp 18 16 16 B/P (MAP) 92/50 (64) 98/51 (67) Pulse Ox 98 95 95 O2 Delivery Room Air Room Air Room Air Room Air O2 Flow Rate 2.0 04/06/22 09:22 Pulse Ox 95 O2 Delivery Room Air O2 Flow Rate 2.0 Intake and Output 04/05/22 04/05/22 04/06/22 15:00 23:00 07:00 Intake Total 510 ml 380 ml 30 ml Balance 510 ml 380 ml 30 ml Justifications for Admission General Conditions Poss hypotension?: Yes Justification for admission: Patient has hypotension (SBP < 90 mm Hg) which is not readily corrected by appropriate treatment within 12 to 24 hours. Poss Metaboilic Acidosis?: Yes Justification for admission: Patient has tachycardia (> 100 beats per minute) or hypotension (SBP < 90 mm Hg) leading to inadequate systemic perfusion as indicated by metabolic acidosis with arterial pH of less than 7.35. Other Justification NICK ADAMSON MD April 06, 2022 12:29
[2022-04-06 15:00] VITALS: BP 98/45
[2022-04-06] MEDS ORDERED: PHENOL ORAL SPRAY 177ML BOTTLE. PO PRN (15:45)
[2022-04-06] MEDS: cefTRIAXone IV Push 2 GM VIAL. IVP SCH (17:03)
--- NOTE | 2022-04-06 18:51 | PDOC ---
GENERAL General: Patient examined chart reviewed today is hospital day 5 for this patient with end-stage renal disease hemodialysis dependent admitted with weakness, malaise, found to have staph aureus bacteremia as well as COVID. He tells me he is getting stronger but the biggest setback at this point is his significant pharyngitis. He cannot even really eat much because it hurts to swallow. His CT neck does demonstrate significant laryngeal edema but no obvious abscess. He has diabetes with hyperglycemia which will need aggressive treatment with the addition of steroids. We will add dexamethasone 6 mg in the morning daily for 10 days to help mediate some of the throat symptoms. We appreciate infectious diseases involvement with the staph aureus bacteremia and he is on broad- spectrum coverage at this point. Appreciate subspecialty support. Continue current management otherwise. Time spent today is 30 minutes with greater than 50% in counseling and coordination of care most of which in discussion with patient regarding care plan and progress. The patient was seen in full isolation gear including N95 respirator covered with a surgical mask, goggles covering eyewear, and contact isolation robe and hair cover. Problems: (1) COVID-19 (2) ESRD (end stage renal disease) (3) Staphylococcus aureus bacteremia (4) Infection of larynx VITAL SIGNS Vital Signs/I&O: Vital Signs Date Time Temp Pulse Resp B/P (MAP) Pulse Ox O2 Delivery O2 Flow Rate FiO2 04/06/22 16:05 95 Room Air 04/06/22 15:35 2.0 04/06/22 15:00 97.6 68 18 98/45 (62) 97.6 I & O 04/05/22 04/05/22 04/06/22 15:00 23:00 07:00 Intake Total 510 ml 380 ml 30 ml Balance 510 ml 380 ml 30 ml In general patient is pleasant appropriately interactive in no acute distress HEENT exam is unremarkable for acute abnormality Neck is soft and supple no adenopathy or thyromegaly noted Chest bilateral equal air entry though diminished throughout no crackles or wheezes are noted Heart S1-S2 normal regular rate and rhythm no murmurs or gallops are noted Abdomen soft nontender nondistended no masses organomegaly noted Extremity exam is unremarkable for acute abnormality ALLERGIES Allergies: Allergies Coded Allergies Type Severity Reaction Last Updated Verified No Known Drug Allergies 01/31/22 No MEDS Medications: Current Medications Medications (Trade) Dose Ordered Sig/Mariza Start Time Stop Time Status Last Admin Dose Admin Acetaminophen (Tylenol) 650 mg PRN Q6HRS PRN 04/02/22 21:00 04/03/22 22:45 Acetaminophen/ Hydrocodone Bitart (Lortab 325) 1 tab PRN Q6HRS PRN 04/02/22 21:00 04/06/22 15:35 Albumin Human 200 ml @ 200 mls/hr 1X PRN PRN 04/06/22 08:30 04/06/22 14:29 DC 04/06/22 09:05 Apixaban (Eliquis) 2.5 mg BID 04/02/22 21:30 04/06/22 08:07 Ascorbic Acid (Vitamin C) 500 mg DAILY 04/03/22 09:00 04/06/22 08:06 Atorvastatin Calcium (Lipitor) 80 mg QHS 04/02/22 21:30 04/05/22 20:41 Ceftriaxone Sodium (Rocephin) 2 gm Q24H 04/03/22 17:00 04/06/22 17:03 Cetirizine HCl (ZyrTEC) 10 mg DAILY 04/03/22 09:00 04/06/22 08:06 Dextrose (Dextrose 50%-Water Syringe) 12.5 gm PRN Q15MIN PRN 04/02/22 21:00 Docusate Sodium (Colace) 100 mg BID 04/02/22 21:30 04/06/22 08:07 Epoetin Curt (PROCRIT for DIALYSIS PTS) 20,000 unit 1X ONCE 04/03/22 21:00 04/03/22 21:01 DC 04/03/22 20:59 Fentanyl Citrate (Fentanyl 2ml Vial) 25 mcg PRN Q3HRS PRN 04/02/22 21:00 Gabapentin (Neurontin) 300 mg HS 04/02/22 21:30 04/05/22 20:41 Guaifenesin (Robitussin Dm) 10 ml PRN Q6HRS PRN 04/02/22 21:00 04/06/22 15:35 Heparin Sodium (Porcine) (Heparin Sodium) 5,000 unit Q8HRS 04/02/22 22:00 04/02/22 21:19 DC Hydralazine HCl (Apresoline Inj) 10 mg PRN Q4HRS PRN 04/02/22 21:00 Info (PHARMACY MONITORING -- do not chart) 1 each PRN DAILY PRN 04/06/22 08:30 Insulin Glargine (Lantus Syringe) 22 unit QHS 04/02/22 21:30 04/05/22 20:39 Insulin Human Lispro (HumaLOG) 0-9 UNITS TIDACHC 04/02/22 21:30 04/06/22 17:04 Lactobacillus Rhamnosus (Culturelle) 1 cap BID 04/04/22 09:00 04/06/22 08:06 Nitroglycerin (Nitrostat) 0.4 mg PRN Q5MIN PRN 04/02/22 21:00 Ondansetron HCl (Zofran Odt) 4 mg PRN Q4HRS PRN 04/02/22 21:00 Ondansetron HCl (Zofran) 4 mg PRN Q4HRS PRN 04/02/22 21:00 Pantoprazole Sodium (Protonix) 40 mg DAILYAC 04/03/22 07:30 04/05/22 09:16 Phenol (Chloraseptic) 1 spray PRN Q2HR PRN 04/06/22 15:45 Sodium Chloride 1,000 ml @ 400 mls/hr Q2H30M PRN 04/04/22 06:45 04/04/22 18:44 DC Sodium Chloride (Normal Saline Flush) 10 ml 1X PRN PRN 04/03/22 10:00 04/04/22 09:59 DC Thiamine Mononitrate (Vitamin B-1) 100 mg DAILY 04/03/22 09:00 04/06/22 08:07 Tramadol HCl (Ultram) 50 mg PRN Q6HRS PRN 04/02/22 21:00 04/02/22 22:01 Vancomycin HCl (Vanco Per Pharmacy) 1 each PRN DAILY PRN 04/04/22 13:30 04/06/22 11:58 Vancomycin HCl (Vancomycin Random Level) 1 each 1X ONCE 04/06/22 05:00 04/06/22 05:01 DC 04/06/22 05:00 Vancomycin HCl 500 mg/Dextrose 500 ml @ 500 mls/hr [id number] 04/09/22 16:00 Vancomycin HCl 2 gm/Sodium Chloride 500 ml @ 250 mls/hr 1X ONCE 04/04/22 14:00 04/04/22 15:59 DC 04/04/22 15:32 Zinc Sulfate (Orazinc) 220 mg DAILY 04/03/22 09:00 04/06/22 08:06 Current Medications Medications (Trade) Dose Ordered Sig/Mariza Route PRN Reason Start Time Stop Time Status Last Admin Dose Admin Vancomycin HCl (Vancomycin Random Level) 1 each 1X ONCE MC 04/06/22 05:00 04/06/22 05:01 DC 04/06/22 05:00 Albumin Human 200 ml @ 200 mls/hr 1X PRN PRN IV Hypotension 04/06/22 08:30 04/06/22 14:29 DC 04/06/22 09:05 LAB Lab: Laboratory Tests Test 04/05/22 20:00 04/06/22 07:00 04/06/22 08:13 04/06/22 12:10 Glucose (Fingerstick) 226 mg/dL (70-99) H 142 mg/dL (70-99) H 110 mg/dL (70-99) H Sodium Level 134 mmol/L (136-145) L Potassium Level 3.7 mmol/L (3.5-5.1) Chloride Level 95 mmol/L (98-107) L Carbon Dioxide Level 27 mmol/L (21-32) Anion Gap 12 (6-14) Blood Urea Nitrogen 44 mg/dL (8-26) H Creatinine 4.9 mg/dL (0.7-1.3) H Estimated GFR (Cockcroft-Gault) 11.7 BUN/Creatinine Ratio 9 (6-20) Glucose Level 143 mg/dL (70-99) H Calcium Level 8.0 mg/dL (8.5-10.1) L Total Bilirubin 0.7 mg/dL (0.2-1.0) Aspartate Amino Transferase (AST) 50 U/L (15-37) H Alanine Aminotransferase (ALT) 46 U/L (16-63) Alkaline Phosphatase 175 U/L (46-116) H Total Protein 6.5 g/dL (6.4-8.2) Albumin 2.0 g/dL (3.4-5.0) L Albumin/Globulin Ratio 0.4 (1.0-1.7) L Random Vancomycin Level 23.1 mcg/mL Test 04/06/22 16:50 Glucose (Fingerstick) 276 mg/dL (70-99) H Laboratory Tests 04/06/22 07:00 ASSESSMENT & PLAN A&P Plan as noted above This note was created using [email or web address] and may have omissions and/or err ors due to the nature of real-time voice shift engineer. Justifications for Admission General Conditions Poss hypotension?: Yes Justification for admission: Patient has hypotension (SBP < 90 mm Hg) which is not readily corrected by appropriate treatment within 12 to 24 hours. Poss Metaboilic Acidosis?: Yes Justification for admission: Patient has tachycardia (> 100 beats per minute) or hypotension (SBP < 90 mm Hg) leading to inadequate systemic perfusion as indicated by metabolic acidosis with arterial pH of less than 7.35. Other Justification TERESITA ALEJANDRO MD April 06, 2022 18:51
[2022-04-06 19:29] VITALS: BP 91/42
[2022-04-06] MEDS: ATORVASTATIN CALCIUM 40 MG TABLET. PO SCH (21:00)
[2022-04-06] MEDS: GABAPENTIN 300 MG CAPSULE. PO SCH (21:00)
[2022-04-06] MEDS: INSULIN GLARGINE SYRINGE. SQ SCH (21:02)
[2022-04-06 22:31] VITALS: BP 93/45
[2022-04-07 02:33] VITALS: BP 107/49
[2022-04-07 06:08] VITALS: BP 104/51
[2022-04-07 06:29] LABS: ALBUMIN 2.3 g/dL (3.4-5.0); ALBUMIN/GLOBULIN RATIO 0.5 (1.0-1.7); CALCIUM 8.1 mg/dL (8.5-10.1); CREATININE 3.5 mg/dL (0.7-1.3); GFR 17.3; POTASSIUM 3.8 mmol/L (3.5-5.1); TOTAL BILIRUBIN 0.6 mg/dL (0.2-1.0); TOTAL PROTEIN 6.8 g/dL (6.4-8.2)
[2022-04-07] MEDS: HYDROcodone/APAP 5/325MG 1 TAB TABLET PO PRN ×3 (06:32→21:15)
[2022-04-07] MEDS: DOCUSATE SODIUM 100 MG CAPSULE. PO SCH ×2 (07:59→20:22)
[2022-04-07] MEDS: CETIRIZINE HCL 10 MG TABLET. PO SCH (07:59)
[2022-04-07] MEDS: LACTOBACILLUS RHAMNOSUS GG 1 CAPSULE. PO SCH ×2 (07:59→20:22)
[2022-04-07] MEDS: DEXAMETHASONE 4 MG TABLET PO SCH (07:59)
[2022-04-07] MEDS: ZINC SULFATE 220 MG CAPSULE. PO SCH (07:59)
[2022-04-07] MEDS: APIXABAN 2.5 MG TABLET. PO SCH ×2 (08:00→20:22)
[2022-04-07] MEDS: PANTOPRAZOLE 40 MG TABLET.DR. PO SCH (08:00)
[2022-04-07] MEDS: ASCORBIC ACID 500 MG TABLET PO SCH (08:00)
[2022-04-07] MEDS: THIAMINE 100 MG TABLET. PO SCH (08:00)
[2022-04-07] MEDS: INSULIN LISPRO 300 UNITS/3 ML VIAL. SQ SCH ×4 (08:00→20:30)
[2022-04-07 11:00] VITALS: BP 96/71
--- NOTE | 2022-04-07 14:15 | PDOC ---
Infectious Disease Note Subjective: Subjective pt is feeling good Vital Signs: Vital Signs Vital Signs Date Time Temp Pulse Resp B/P (MAP) Pulse Ox O2 Delivery O2 Flow Rate FiO2 04/07/22 11:00 98.5 68 18 96/71 (79) 96 Room Air 98.5 04/06/22 15:35 2.0 Physical Exam: PHYSICAL EXAM GENERAL: Alert, oriented gentleman, not in distress. VITAL SIGNS: stable HEENT: Both pupils are round and reacting. No conjunctival lesion, no lesion in the mouth. NECK: Supple, no JVP, no lymphadenopathy. LUNGS: Clear. HEART: S1, S2, regular. ABDOMEN: Soft, nontender, no organomegaly. EXTREMITIES: No edema, cyanosis. SKIN: Unremarkable. MUSCULOSKELETAL: In particular, his neck is stiff, but it is difficult to evaluate since his muscles are very tight in the neck and the pain is in the middle of the neck as well as has radiation into the bilateral shoulders. NEUROLOGIC: The patient is alert, awake, and appropriate. No focal neurologic deficit. Medications: Inpatient Meds: Medications reviewed. Labs: Lab Laboratory Tests Test 04/06/22 16:50 04/06/22 20:40 04/06/22 21:22 04/07/22 05:45 Glucose (Fingerstick) 276 mg/dL (70-99) 215 mg/dL (70-99) SARS-CoV-2 Antigen (Rapid) Negative (NEGATIVE) Sodium Level 135 mmol/L (136-145) Potassium Level 3.8 mmol/L (3.5-5.1) Chloride Level 97 mmol/L (98-107) Carbon Dioxide Level 27 mmol/L (21-32) Anion Gap 11 (6-14) Blood Urea Nitrogen 28 mg/dL (8-26) Creatinine 3.5 mg/dL (0.7-1.3) Estimated GFR (Cockcroft-Gault) 17.3 BUN/Creatinine Ratio 8 (6-20) Glucose Level 300 mg/dL (70-99) Calcium Level 8.1 mg/dL (8.5-10.1) Total Bilirubin 0.6 mg/dL (0.2-1.0) Aspartate Amino Transf (AST/SGOT) 112 U/L (15-37) Alanine Aminotransferase (ALT/SGPT) 79 U/L (16-63) Alkaline Phosphatase 235 U/L (46-116) Total Protein 6.8 g/dL (6.4-8.2) Albumin 2.3 g/dL (3.4-5.0) Albumin/Globulin Ratio 0.5 (1.0-1.7) Test 04/07/22 06:30 04/07/22 11:45 Glucose (Fingerstick) 267 mg/dL (70-99) 182 mg/dL (70-99) Micro IMPRESSION: 1. No acute osseous injury. 2. Diffuse idiopathic skeletal hyperostosis, ossification of posterior longitudinal ligament, and cervical disc disease and uncovertebral arthritis with bone spurring contributes to multiple levels of spinal canal and neural foraminal stenoses, stable to the prior exam. 3. There is new prevertebral soft tissue edema at the C2-C6 vertebral levels mildly displacing the posterior wall of the pharynx and larynx anteriorly. There is no disc space narrowing, bone demineralization, bone destruction or periostitis of the underlying cervical spine to localize a potential site of discitis or osteomyelitis to account for this edema. Etiology of this edema is indeterminate. This could be due to soft tissue infection or inflammatory edema from inflammation of the longus coli muscles. This could be further assessed with MR imaging. 4. 2 left upper lobe apical nodules largest measuring 4 mm. Attention on follow- up CT chest imaging in 6 months is advised. Objective: Assessment: 1. Methicillin sensitive Staph aureus bacteremia April 04 and at [place] 2. Severe neck pain, rule out diskitis. 3. End-stage renal disease, on hemodialysis. 4. COVID-19 positive. 5. Automatic implantable cardioverter-defibrillator in place. 6. Cardiomyopathy. Plan: Plan of Care ct neck neg for infection cont antibiotics Repeat blood cultures in a.m. Awaiting culture results and medical records from [facility] Patient had bloodstream infection in the recent past. Discussed with nursing staff GABBI SANCHEZ MD April 07, 2022 14:15
[2022-04-07 15:00] VITALS: BP 123/58
--- NOTE | 2022-04-07 16:37 | PDOC ---
GENERAL General: Patient examined chart reviewed discussed with who is on the phone while we were visiting. Patient is feeling a lot better after initiation of steroids yesterday. They are wondering when he will be able to go home. We will defer to infectious diseases on antibiotic plan on discharge. Given his robust response to the dexamethasone 6 mg daily I would recommend a full 10-day course to fully allow him to manage his significant throat pain and swelling and thus be able to eat and hydrate well. We still do not have the PR urine culture but the blood cultures here are demonstrating methicillin sensitive staph aureus. Defer to infectious diseases on neck steps in assessing etiology of that infection. Due to the COVID he has not had any other investigational studies perhaps echo prior to discharge would be prudent. Patient certainly seems to be improving well and the likely source of the MSSA is skin. Nonetheless patient has no active ulcers or wounds. He has not had any issues with his dialysis access. He and are hoping to continue this treatment as an outpatient. She is hoping that she can come in and see him given that his rapid antigen is negative and she has also just been through COVID herself. Time spent today is 30 minutes with greater than 50% in counseling and coordination of care most of which in discussion with patient regarding care plan and progress. Problems: (1) COVID-19 (2) ESRD (end stage renal disease) (3) Staphylococcus aureus bacteremia (4) Infection of larynx VITAL SIGNS Vital Signs/I&O: Vital Signs Date Time Temp Pulse Resp B/P (MAP) Pulse Ox O2 Delivery O2 Flow Rate FiO2 04/07/22 15:44 96 Room Air 2.0 04/07/22 15:00 98.3 73 16 123/58 (79) 98.3 I & O 04/06/22 04/06/22 04/07/22 15:00 23:00 07:00 Intake Total 120 ml 600 ml 120 ml Output Total 0 ml Balance 120 ml 600 ml 120 ml In general patient is much improved today in good spirits alert and oriented x3 no acute distress HEENT exam is unremarkable for acute abnormality Chest is clear to auscultation Heart S1-S2 normal regular rate and rhythm no murmurs or gallops are noted Abdomen soft nontender nondistended no masses organomegaly noted Extremity exam is unremarkable for acute abnormality ALLERGIES Allergies: Allergies Coded Allergies Type Severity Reaction Last Updated Verified No Known Drug Allergies 01/31/22 No MEDS Medications: Current Medications Medications (Trade) Dose Ordered Sig/Mariza Start Time Stop Time Status Last Admin Dose Admin Acetaminophen (Tylenol) 650 mg PRN Q6HRS PRN 04/02/22 21:00 04/03/22 22:45 Acetaminophen/ Hydrocodone Bitart (Lortab 5/325) 1 tab PRN Q6HRS PRN 04/02/22 21:00 04/07/22 15:14 Albumin Human 200 ml @ 200 mls/hr 1X PRN PRN 04/06/22 08:30 04/06/22 14:29 DC 04/06/22 09:05 Apixaban (Eliquis) 2.5 mg BID 04/02/22 21:30 04/07/22 08:00 Ascorbic Acid (Vitamin C) 500 mg DAILY 04/03/22 09:00 04/07/22 08:00 Atorvastatin Calcium (Lipitor) 80 mg QHS 04/02/22 21:30 04/06/22 21:00 Cefazolin Sodium (Ancef) 1 gm Q12H 04/07/22 15:00 Ceftriaxone Sodium (Rocephin) 2 gm Q24H 04/03/22 17:00 04/07/22 14:53 DC 04/06/22 17:03 Cetirizine HCl (ZyrTEC) 10 mg DAILY 04/03/22 09:00 04/07/22 07:59 Dexamethasone (Decadron) 6 mg [id number] 04/07/22 08:00 04/07/22 07:59 Dextrose (Dextrose 50%-Water Syringe) 12.5 gm PRN Q15MIN PRN 04/02/22 21:00 Docusate Sodium (Colace) 100 mg BID 04/02/22 21:30 04/07/22 07:59 Epoetin Curt (PROCRIT for DIALYSIS PTS) 20,000 unit 1X ONCE 04/03/22 21:00 04/03/22 21:01 DC 04/03/22 20:59 Fentanyl Citrate (Fentanyl 2ml Vial) 25 mcg PRN Q3HRS PRN 04/02/22 21:00 Gabapentin (Neurontin) 300 mg HS 04/02/22 21:30 04/06/22 21:00 Guaifenesin (Robitussin Dm) 10 ml PRN Q6HRS PRN 04/02/22 21:00 04/06/22 15:35 Heparin Sodium (Porcine) (Heparin Sodium) 5,000 unit Q8HRS 04/02/22 22:00 04/02/22 21:19 DC Hydralazine HCl (Apresoline Inj) 10 mg PRN Q4HRS PRN 04/02/22 21:00 Info (PHARMACY MONITORING -- do not chart) 1 each PRN DAILY PRN 04/06/22 08:30 Insulin Glargine (Lantus Syringe) 22 unit QHS 04/02/22 21:30 04/06/22 21:02 Insulin Human Lispro (HumaLOG) 0-9 UNITS TIDACHC 04/02/22 21:30 04/07/22 11:48 Lactobacillus Rhamnosus (Culturelle) 1 cap BID 04/04/22 09:00 04/07/22 07:59 Nitroglycerin (Nitrostat) 0.4 mg PRN Q5MIN PRN 04/02/22 21:00 Ondansetron HCl (Zofran Odt) 4 mg PRN Q4HRS PRN 04/02/22 21:00 Ondansetron HCl (Zofran) 4 mg PRN Q4HRS PRN 04/02/22 21:00 Pantoprazole Sodium (Protonix) 40 mg DAILYAC 04/03/22 07:30 04/07/22 08:00 Phenol (Chloraseptic) 1 spray PRN Q2HR PRN 04/06/22 15:45 Sodium Chloride 1,000 ml @ 400 mls/hr Q2H30M PRN 04/04/22 06:45 04/04/22 18:44 DC Sodium Chloride (Normal Saline Flush) 10 ml 1X PRN PRN 04/03/22 10:00 04/04/22 09:59 DC Thiamine Mononitrate (Vitamin B-1) 100 mg DAILY 04/03/22 09:00 04/07/22 08:00 Tramadol HCl (Ultram) 50 mg PRN Q6HRS PRN 04/02/22 21:00 04/02/22 22:01 Vancomycin HCl (Vanco Per Pharmacy) 1 each PRN DAILY PRN 04/04/22 13:30 04/07/22 15:03 DC 04/06/22 11:58 Vancomycin HCl (Vancomycin Random Level) 1 each 1X ONCE 04/06/22 05:00 04/06/22 05:01 DC 04/06/22 05:00 Vancomycin HCl 500 mg/Dextrose 500 ml @ 500 mls/hr [id number] 04/09/22 16:00 04/07/22 14:53 DC Vancomycin HCl 2 gm/Sodium Chloride 500 ml @ 250 mls/hr 1X ONCE 04/04/22 14:00 04/04/22 15:59 DC 04/04/22 15:32 Zinc Sulfate (Orazinc) 220 mg DAILY 04/03/22 09:00 04/07/22 07:59 Current Medications Medications (Trade) Dose Ordered Sig/Mariza Route PRN Reason Start Time Stop Time Status Last Admin Dose Admin Dexamethasone (Decadron) 6 mg [id number] PO 04/07/22 08:00 04/07/22 07:59 LAB Lab: Laboratory Tests Test 04/06/22 16:50 04/06/22 20:40 04/06/22 21:22 04/07/22 05:45 Glucose (Fingerstick) 276 mg/dL (70-99) H 215 mg/dL (70-99) H SARS-CoV-2 Antigen (Rapid) Negative (NEGATIVE) Sodium Level 135 mmol/L (136-145) L Potassium Level 3.8 mmol/L (3.5-5.1) Chloride Level 97 mmol/L (98-107) L Carbon Dioxide Level 27 mmol/L (21-32) Anion Gap 11 (6-14) Blood Urea Nitrogen 28 mg/dL (8-26) H Creatinine 3.5 mg/dL (0.7-1.3) H Estimated GFR (Cockcroft-Gault) 17.3 BUN/Creatinine Ratio 8 (6-20) Glucose Level 300 mg/dL (70-99) H Calcium Level 8.1 mg/dL (8.5-10.1) L Total Bilirubin 0.6 mg/dL (0.2-1.0) Aspartate Amino Transferase (AST) 112 U/L (15-37) H Alanine Aminotransferase (ALT) 79 U/L (16-63) H Alkaline Phosphatase 235 U/L (46-116) H Total Protein 6.8 g/dL (6.4-8.2) Albumin 2.3 g/dL (3.4-5.0) L Albumin/Globulin Ratio 0.5 (1.0-1.7) L Test 04/07/22 06:30 04/07/22 11:45 Glucose (Fingerstick) 267 mg/dL (70-99) H 182 mg/dL (70-99) H Laboratory Tests 04/07/22 05:45 ASSESSMENT & PLAN A&P Plan as noted above This note was created using [employer] and may have omissions and/or errors due to the nature of real-time voice transmission assembler. Justifications for Admission General Conditions Poss hypotension?: Yes Justification for admission: Patient has hypotension (SBP < 90 mm Hg) which is not readily corrected by appropriate treatment within 12 to 24 hours. Poss Metaboilic Acidosis?: Yes Justification for admission: Patient has tachycardia (> 100 beats per minute) or hypotension (SBP < 90 mm Hg) leading to inadequate systemic perfusion as indicated by metabolic acidosis with arterial pH of less than 7.35. Other Justification TERESITA ALEJANDRO MD April 07, 2022 16:37
[2022-04-07] MEDS: ceFAZolin SODIUM IV Push 1 GM VIAL. IVP SCH (17:17)
[2022-04-07 19:32] VITALS: BP 124/65
[2022-04-07] MEDS: ATORVASTATIN CALCIUM 40 MG TABLET. PO SCH (20:23)
[2022-04-07] MEDS: GABAPENTIN 300 MG CAPSULE. PO SCH (20:23)
[2022-04-07] MEDS: INSULIN GLARGINE SYRINGE. SQ SCH (20:30)
[2022-04-07 22:58] VITALS: BP 138/64
[2022-04-08] MEDS: ceFAZolin SODIUM IV Push 1 GM VIAL. IVP SCH ×2 (03:08→21:42)
[2022-04-08] MEDS: HYDROcodone/APAP 5/325MG 1 TAB TABLET PO PRN ×3 (03:20→21:43)
[2022-04-08 03:32] VITALS: BP 134/62
[2022-04-08 04:06] LABS: BASO % 0 % (0-3); EOS % 0 % (0-3); HEMATOCRIT 34.9 % (39.0-53.0); HEMOGLOBIN 11.5 g/dL (13.0-17.5); LYMPH # 0.3 x10^3/uL (1.0-4.8); LYMPH % 3 % (24-48); MEAN CORPUSCULAR HEMOGLOBIN 29 pg (25-35); MEAN CORPUSCULAR HGB CONC 33 g/dL (31-37); MEAN CORPUSCULAR VOLUME 89 fL (79-100); MONO # 0.6 x10^3/uL (0.0-1.1); MONO % 8 % (0-9); NEUT # 6.9 x10^3/uL (1.8-7.7); NEUT % 89 % (31-73); PLATELET COUNT 193 x10^3/uL (140-400); RED BLOOD COUNT 3.91 x10^6/uL (4.30-5.70); RED CELL DISTRIBUTION WIDTH 15.8 % (11.5-14.5); WHITE BLOOD COUNT 7.8 x10^3/uL (4.0-11.0)
[2022-04-08 04:31] LABS: % LYMPHS 1 % (24-48); % MONOS 5 % (0-10); % SEGS 94 % (35-66)
[2022-04-08 04:32] LABS: PLT ESTIMATE ADEQUATE (ADEQUATE)
[2022-04-08 04:33] LABS: TOXIC GRANULATION SLIGHT
[2022-04-08 04:37] LABS: ALBUMIN 2.3 g/dL (3.4-5.0); ALBUMIN/GLOBULIN RATIO 0.5 (1.0-1.7); CALCIUM 8.3 mg/dL (8.5-10.1); GFR 11.5; POTASSIUM 4.5 mmol/L (3.5-5.1); TOTAL BILIRUBIN 0.6 mg/dL (0.2-1.0); TOTAL PROTEIN 7.1 g/dL (6.4-8.2)
[2022-04-08 07:00] VITALS: BP 114/65
[2022-04-08] MEDS: CETIRIZINE HCL 10 MG TABLET. PO SCH (07:56)
[2022-04-08] MEDS: ASCORBIC ACID 500 MG TABLET PO SCH (07:56)
[2022-04-08] MEDS: DEXAMETHASONE 4 MG TABLET PO SCH (07:56)
[2022-04-08] MEDS: THIAMINE 100 MG TABLET. PO SCH (07:56)
[2022-04-08] MEDS: APIXABAN 2.5 MG TABLET. PO SCH ×2 (07:56→21:42)
[2022-04-08] MEDS: PANTOPRAZOLE 40 MG TABLET.DR. PO SCH (07:56)
[2022-04-08] MEDS: DOCUSATE SODIUM 100 MG CAPSULE. PO SCH ×2 (07:56→21:42)
[2022-04-08] MEDS: ZINC SULFATE 220 MG CAPSULE. PO SCH (07:56)
[2022-04-08] MEDS: LACTOBACILLUS RHAMNOSUS GG 1 CAPSULE. PO SCH ×2 (07:56→21:42)
[2022-04-08] MEDS ORDERED: INSULIN LISPRO 300 UNITS/3 ML VIAL. SQ ONE (08:15)
[2022-04-08] MEDS: INSULIN LISPRO 300 UNITS/3 ML VIAL. SQ SCH ×4 (08:22→21:45)
--- NOTE | 2022-04-08 10:13 | PDOC ---
DATE OF SERVICE DATE: 04/08/22 TIME: 10:13 SUBJECTIVE ROS No complaints, eating Lunch OBJECTIVE Vital Signs Vital Signs Date Time Temp Pulse Resp B/P (MAP) Pulse Ox O2 Delivery O2 Flow Rate FiO2 04/08/22 08:00 Room Air 04/08/22 07:00 95.7 79 18 114/65 (81) 98 95.7 04/07/22 15:44 2.0 I & 0 Intake and Output 04/08/22 07:00 Intake Total 1760 ml Balance 1760 ml Intake Oral 1760 ml PHYSICAL EXAM Physical Exam GENERAL: not in distress. HEENT: Both pupils are round and reacting. No conjunctival lesion, OM moist NECK: Supple, LUNGS: Clear.Non labored HEART: S1, S2, regular. ABDOMEN: Soft, nontender, no organomegaly. EXTREMITIES: No edema, cyanosis. SKIN: Unremarkable. NEURO No focal neurologic deficit. DIAGNOSIS/ASSESSMENT Assessment & Plan ESRD on HD TTS - No indication for dialysis today Blood culture positive from [place], gram-positive cocci.// MSSA- Per ID recommendations, remove HDC tomorrow after dialysis. Hold off on placing new HDC Severe neck pain, rule out diskitis. COVID-19 positive. Cardiomyopathy - ischemic by history, s/p AICD [facility] paced rhythm with underlying afib HTN - low BP since DM2 Chronic AFIB - rate controlled with pacer AICD CAD - prior PCI. Sees Dr. Sena through the [facility] UTI - morganella UTI in January 2022, recurred currently COMMENT/RELEVANT DATA Meds Current Medications Medications (Trade) Dose Ordered Sig/Mariza Start Time Stop Time Status Last Admin Dose Admin Acetaminophen (Tylenol) 650 mg PRN Q6HRS PRN 04/02/22 21:00 04/03/22 22:45 650 MG Acetaminophen/ Hydrocodone Bitart (Lortab 5/325) 1 tab PRN Q6HRS PRN 04/02/22 21:00 04/08/22 03:20 1 TAB Albumin Human 200 ml @ 200 mls/hr 1X PRN PRN 04/06/22 08:30 04/06/22 14:29 DC 04/06/22 09:05 200 MLS/HR Apixaban (Eliquis) 2.5 mg BID 04/02/22 21:30 04/08/22 07:56 2.5 MG Ascorbic Acid (Vitamin C) 500 mg DAILY 04/03/22 09:00 04/08/22 07:56 500 MG Atorvastatin Calcium (Lipitor) 80 mg QHS 04/02/22 21:30 04/07/22 20:23 80 MG Cefazolin Sodium (Ancef) 1 gm Q12H 04/07/22 15:00 04/08/22 03:08 1 GM Ceftriaxone Sodium (Rocephin) 2 gm Q24H 04/03/22 17:00 04/07/22 14:53 DC 04/06/22 17:03 2 GM Cetirizine HCl (ZyrTEC) 10 mg DAILY 04/03/22 09:00 04/08/22 07:56 10 MG Dexamethasone (Decadron) 6 mg DAILYWBKFT 04/07/22 08:00 04/08/22 07:56 6 MG Dextrose (Dextrose 50%-Water Syringe) 12.5 gm PRN Q15MIN PRN 04/02/22 21:00 Docusate Sodium (Colace) 100 mg BID 04/02/22 21:30 04/08/22 07:56 100 MG Epoetin Curt (PROCRIT for DIALYSIS PTS) 20,000 unit 1X ONCE 04/03/22 21:00 04/03/22 21:01 DC 04/03/22 20:59 20,000 UNIT Fentanyl Citrate (Fentanyl 2ml Vial) 25 mcg PRN Q3HRS PRN 04/02/22 21:00 Gabapentin (Neurontin) 300 mg HS 04/02/22 21:30 04/07/22 20:23 300 MG Guaifenesin (Robitussin Dm) 10 ml PRN Q6HRS PRN 04/02/22 21:00 04/06/22 15:35 10 ML Heparin Sodium (Porcine) (Heparin Sodium) 5,000 unit Q8HRS 04/02/22 22:00 04/02/22 21:19 DC Hydralazine HCl (Apresoline Inj) 10 mg PRN Q4HRS PRN 04/02/22 21:00 Info (PHARMACY MONITORING -- do not chart) 1 each PRN DAILY PRN 04/06/22 08:30 Insulin Glargine (Lantus Syringe) 22 unit QHS 04/02/22 21:30 04/07/22 20:30 22 UNIT Insulin Human Lispro (HumaLOG) 14 units 1X ONCE 04/08/22 08:15 04/08/22 08:16 DC 04/08/22 08:23 14 UNITS Lactobacillus Rhamnosus (Culturelle) 1 cap BID 04/04/22 09:00 04/08/22 07:56 1 CAP Nitroglycerin (Nitrostat) 0.4 mg PRN Q5MIN PRN 04/02/22 21:00 Ondansetron HCl (Zofran Odt) 4 mg PRN Q4HRS PRN 04/02/22 21:00 Ondansetron HCl (Zofran) 4 mg PRN Q4HRS PRN 04/02/22 21:00 Pantoprazole Sodium (Protonix) 40 mg DAILYAC 04/03/22 07:30 04/08/22 07:56 40 MG Phenol (Chloraseptic) 1 spray PRN Q2HR PRN 04/06/22 15:45 Sodium Chloride 1,000 ml @ 400 mls/hr Q2H30M PRN 04/04/22 06:45 04/04/22 18:44 DC Sodium Chloride (Normal Saline Flush) 10 ml 1X PRN PRN 04/03/22 10:00 04/04/22 09:59 DC Thiamine Mononitrate (Vitamin B-1) 100 mg DAILY 04/03/22 09:00 04/08/22 07:56 100 MG Tramadol HCl (Ultram) 50 mg PRN Q6HRS PRN 04/02/22 21:00 04/02/22 22:01 50 MG Vancomycin HCl (Vanco Per Pharmacy) 1 each PRN DAILY PRN 04/04/22 13:30 04/07/22 15:03 DC 04/06/22 11:58 1 EACH Vancomycin HCl (Vancomycin Random Level) 1 each 1X ONCE 04/06/22 05:00 04/06/22 05:01 DC 04/06/22 05:00 1 EACH Vancomycin HCl 500 mg/Dextrose 500 ml @ 500 mls/hr [id number] 04/09/22 16:00 04/07/22 14:53 DC Vancomycin HCl 2 gm/Sodium Chloride 500 ml @ 250 mls/hr 1X ONCE 04/04/22 14:00 04/04/22 15:59 DC 04/04/22 15:32 250 MLS/HR Zinc Sulfate (Orazinc) 220 mg DAILY 04/03/22 09:00 04/08/22 07:56 220 MG Lab Laboratory Tests Test 04/07/22 11:45 04/07/22 17:13 04/07/22 19:33 04/08/22 03:30 Glucose (Fingerstick) 182 mg/dL (70-99) 382 mg/dL (70-99) 454 mg/dL (70-99) White Blood Count 7.8 x10^3/uL (4.0-11.0) Red Blood Count 3.91 x10^6/uL (4.30-5.70) Hemoglobin 11.5 g/dL (13.0-17.5) Hematocrit 34.9 % (39.0-53.0) Mean Corpuscular Volume 89 fL (79-100) Mean Corpuscular Hemoglobin 29 pg (25-35) Mean Corpuscular Hemoglobin Concent 33 g/dL (31-37) Red Cell Distribution Width 15.8 % (11.5-14.5) Platelet Count 193 x10^3/uL (140-400) Neutrophils (%) (Auto) 89 % (31-73) Lymphocytes (%) (Auto) 3 % (24-48) Monocytes (%) (Auto) 8 % (0-9) Eosinophils (%) (Auto) 0 % (0-3) Basophils (%) (Auto) 0 % (0-3) Neutrophils # (Auto) 6.9 x10^3/uL (1.8-7.7) Lymphocytes # (Auto) 0.3 x10^3/uL (1.0-4.8) Monocytes # (Auto) 0.6 x10^3/uL (0.0-1.1) Eosinophils # (Auto) 0.0 x10^3/uL (0.0-0.7) Basophils # (Auto) 0.0 x10^3/uL (0.0-0.2) Segmented Neutrophils % 94 % (35-66) Lymphocytes % 1 % (24-48) Monocytes % 5 % (0-10) Toxic Granulation Slight Platelet Estimate Adequate (ADEQUATE) Sodium Level 133 mmol/L (136-145) Potassium Level 4.5 mmol/L (3.5-5.1) Chloride Level 95 mmol/L (98-107) Carbon Dioxide Level 24 mmol/L (21-32) Anion Gap 14 (6-14) Blood Urea Nitrogen 48 mg/dL (8-26) Creatinine 5.0 mg/dL (0.7-1.3) Estimated GFR (Cockcroft-Gault) 11.5 BUN/Creatinine Ratio 10 (6-20) Glucose Level 472 mg/dL (70-99) Calcium Level 8.3 mg/dL (8.5-10.1) Total Bilirubin 0.6 mg/dL (0.2-1.0) Aspartate Amino Transf (AST/SGOT) 140 U/L (15-37) Alanine Aminotransferase (ALT/SGPT) 106 U/L (16-63) Alkaline Phosphatase 262 U/L (46-116) Total Protein 7.1 g/dL (6.4-8.2) Albumin 2.3 g/dL (3.4-5.0) Albumin/Globulin Ratio 0.5 (1.0-1.7) Test 04/08/22 08:01 Glucose (Fingerstick) 488 mg/dL (70-99) Results All relevant outside records, renal labs, imaging studies, telemetry/EKG's were reviewed. Justicifation of Admission Dx: Justifications for Admission: Justification of Admission Dx: N/A RIVER BRINK MD April 08, 2022 10:13
[2022-04-08 11:00] VITALS: BP 113/66
--- NOTE | 2022-04-08 11:01 | PDOC ---
[employer] PROGRESS NOTE Date of Service DOS: DATE: 04/08/22 TIME: 10:45 Chief Complaint Chief Complaint COVID 19 - supportive care. Monitor O2 saturations, maintain > 89%. If hypoxic will initiate decadron and remdesivir therapy; Staph aureus bacteremia - recurrently positive, was positive at [facility] Weakness - likely related to COVID 19, also with some uremia Myalgias - viral syndrome ESRD - with uremia. Consult nephrology for missed dialysis session. Started dialysis this past November 2021, has RIJ tunneled dialysis catheter Cardiomyopathy - ischemic by history, s/p AICD [facility] paced rhythm with underlying afib HTN - low BP since HLD - statin DM2 - basal bolus plus insulin while inpatient Chronic AFIB - rate controlled with pacer AICD CAD - prior PCI. Sees Dr. Sena through the [facility] UTI - morganella UTI in January 2022, recurred currently Severe malnutrition History of Present Illness History of Present Illness 04/05: Evaluate examined at bedside. A bit lethargic but improving. Nephrology infectious disease recommendations reviewed. Waiting on [place] culture results still. Continue IV antibiotics. Dialysis tomorrow. Therapy modalities. 04/04: Patient evaluated undergoing dialysis. He is a bit lethargic but no major complaints. Continue current. Therapy evaluation for possible placement. Discussed with bedside RN. Clinical Quality Rn recommendations reviewed. 04/03: Patient afebrile, resting comfortably on room air. Denies any shortness of breath. Reports some muscle aches in his neck, shoulders, and proximal legs. States he has not had dialysis and few days due to his weakness. Potassium 4.1; I doubt there is any urgent need for dialysis at this time, but will wait for nephrology impression. 04/08: Urine culture from [facility] with greater than 100,000 CFU of Morganella Heron high sensitive to Rocephin. Blood culture 1 out of 4 bottles positive for staph aureus MSSA from [facility]. He is able to eat today not hypoxic. Feeling little stronger. Vitals/I&O Vitals/I&O: Vital Signs Date Time Temp Pulse Resp B/P (MAP) Pulse Ox O2 Delivery O2 Flow Rate FiO2 04/08/22 08:00 Room Air 04/08/22 07:00 95.7 79 18 114/65 (81) 98 95.7 04/07/22 15:44 2.0 I & O 04/07/22 04/07/22 04/08/22 15:00 23:00 07:00 Intake Total 720 ml 100 ml 940 ml Balance 720 ml 100 ml 940 ml Physical Exam Physical Exam: GENERAL: Alert, oriented gentleman, not in distress. VITAL SIGNS: stable HEENT: Both pupils are round and reacting. No conjunctival lesion, no lesion in the mouth. NECK: Supple, no JVP, no lymphadenopathy. LUNGS: Clear. HEART: S1, S2, regular. ABDOMEN: Soft, nontender, no organomegaly. EXTREMITIES: No edema, cyanosis. SKIN: Unremarkable. MUSCULOSKELETAL: In particular, his neck is stiff, but it is difficult to evaluate since his muscles are very tight in the neck and the pain is in the middle of the neck as well as has radiation into the bilateral shoulders. NEUROLOGIC: The patient is alert, awake, and appropriate. No focal neurologic deficit. General: Alert, Cooperative, No acute distress Heart: Regular rate Lungs: Clear Abdomen: Normal bowel sounds, Soft, No tenderness Extremities: No clubbing Skin: No rashes Labs Labs: Laboratory Tests Test 04/07/22 11:45 04/07/22 17:13 04/07/22 19:33 04/08/22 03:30 Glucose (Fingerstick) 182 mg/dL (70-99) 382 mg/dL (70-99) 454 mg/dL (70-99) White Blood Count 7.8 x10^3/uL (4.0-11.0) Red Blood Count 3.91 x10^6/uL (4.30-5.70) Hemoglobin 11.5 g/dL (13.0-17.5) Hematocrit 34.9 % (39.0-53.0) Mean Corpuscular Volume 89 fL (79-100) Mean Corpuscular Hemoglobin 29 pg (25-35) Mean Corpuscular Hemoglobin Concent 33 g/dL (31-37) Red Cell Distribution Width 15.8 % (11.5-14.5) Platelet Count 193 x10^3/uL (140-400) Neutrophils (%) (Auto) 89 % (31-73) Lymphocytes (%) (Auto) 3 % (24-48) Monocytes (%) (Auto) 8 % (0-9) Eosinophils (%) (Auto) 0 % (0-3) Basophils (%) (Auto) 0 % (0-3) Neutrophils # (Auto) 6.9 x10^3/uL (1.8-7.7) Lymphocytes # (Auto) 0.3 x10^3/uL (1.0-4.8) Monocytes # (Auto) 0.6 x10^3/uL (0.0-1.1) Eosinophils # (Auto) 0.0 x10^3/uL (0.0-0.7) Basophils # (Auto) 0.0 x10^3/uL (0.0-0.2) Segmented Neutrophils % 94 % (35-66) Lymphocytes % 1 % (24-48) Monocytes % 5 % (0-10) Toxic Granulation Slight Platelet Estimate Adequate (ADEQUATE) Sodium Level 133 mmol/L (136-145) Potassium Level 4.5 mmol/L (3.5-5.1) Chloride Level 95 mmol/L (98-107) Carbon Dioxide Level 24 mmol/L (21-32) Anion Gap 14 (6-14) Blood Urea Nitrogen 48 mg/dL (8-26) Creatinine 5.0 mg/dL (0.7-1.3) Estimated GFR (Cockcroft-Gault) 11.5 BUN/Creatinine Ratio 10 (6-20) Glucose Level 472 mg/dL (70-99) Calcium Level 8.3 mg/dL (8.5-10.1) Total Bilirubin 0.6 mg/dL (0.2-1.0) Aspartate Amino Transf (AST/SGOT) 140 U/L (15-37) Alanine Aminotransferase (ALT/SGPT) 106 U/L (16-63) Alkaline Phosphatase 262 U/L (46-116) Total Protein 7.1 g/dL (6.4-8.2) Albumin 2.3 g/dL (3.4-5.0) Albumin/Globulin Ratio 0.5 (1.0-1.7) Test 04/08/22 08:01 Glucose (Fingerstick) 488 mg/dL (70-99) Comment Review of Relevant I have reviewed the following items kate (where applicable) has been applied. Medications: Current Medications Medications (Trade) Dose Ordered Sig/Mariza Route PRN Reason Start Time Stop Time Status Last Admin Dose Admin Cefazolin Sodium (Ancef) 1 gm Q12H IVP 04/07/22 15:00 04/08/22 03:08 Insulin Human Lispro (HumaLOG) 14 units 1X ONCE SQ 04/08/22 08:15 04/08/22 08:16 DC 04/08/22 08:23 Justifications for Admission General Conditions Poss hypotension?: Yes Justification for admission: Patient has hypotension (SBP < 90 mm Hg) which is not readily corrected by appropriate treatment within 12 to 24 hours. Poss Metaboilic Acidosis?: Yes Justification for admission: Patient has tachycardia (> 100 beats per minute) or hypotension (SBP < 90 mm Hg) leading to inadequate systemic perfusion as indicated by metabolic acidosis with arterial pH of less than 7.35. Other Justification SHELIA OCASIO MD April 08, 2022 11:01
--- NOTE | 2022-04-08 13:29 | PDOC ---
Infectious Disease Note Subjective Subjective pt is feeling good neck is better ROS ROS no n/v/d/ Vital Sign Vital Signs Vital Signs Date Time Temp Pulse Resp B/P (MAP) Pulse Ox O2 Delivery O2 Flow Rate FiO2 04/08/22 12:33 98 Room Air 2.0 04/08/22 11:00 96.1 57 18 113/66 (82) 96.1 Physical Exam PHYSICAL EXAM GENERAL: Alert, oriented gentleman, not in distress. VITAL SIGNS: stable HEENT: Both pupils are round and reacting. No conjunctival lesion, no lesion in the mouth. NECK: Supple, no JVP, no lymphadenopathy. LUNGS: Clear. HEART: S1, S2, regular. ABDOMEN: Soft, nontender, no organomegaly. EXTREMITIES: No edema, cyanosis. SKIN: Unremarkable. MUSCULOSKELETAL: In particular, his neck is stiff, but it is difficult to evaluate since his muscles are very tight in the neck and the pain is in the middle of the neck as well as has radiation into the bilateral shoulders. NEUROLOGIC: The patient is alert, awake, and appropriate. No focal neurologic deficit. Labs Lab Laboratory Tests Test 04/07/22 17:13 04/07/22 19:33 04/08/22 03:30 04/08/22 08:01 Glucose (Fingerstick) 382 mg/dL (70-99) 454 mg/dL (70-99) 488 mg/dL (70-99) White Blood Count 7.8 x10^3/uL (4.0-11.0) Red Blood Count 3.91 x10^6/uL (4.30-5.70) Hemoglobin 11.5 g/dL (13.0-17.5) Hematocrit 34.9 % (39.0-53.0) Mean Corpuscular Volume 89 fL (79-100) Mean Corpuscular Hemoglobin 29 pg (25-35) Mean Corpuscular Hemoglobin Concent 33 g/dL (31-37) Red Cell Distribution Width 15.8 % (11.5-14.5) Platelet Count 193 x10^3/uL (140-400) Neutrophils (%) (Auto) 89 % (31-73) Lymphocytes (%) (Auto) 3 % (24-48) Monocytes (%) (Auto) 8 % (0-9) Eosinophils (%) (Auto) 0 % (0-3) Basophils (%) (Auto) 0 % (0-3) Neutrophils # (Auto) 6.9 x10^3/uL (1.8-7.7) Lymphocytes # (Auto) 0.3 x10^3/uL (1.0-4.8) Monocytes # (Auto) 0.6 x10^3/uL (0.0-1.1) Eosinophils # (Auto) 0.0 x10^3/uL (0.0-0.7) Basophils # (Auto) 0.0 x10^3/uL (0.0-0.2) Segmented Neutrophils % 94 % (35-66) Lymphocytes % 1 % (24-48) Monocytes % 5 % (0-10) Toxic Granulation Slight Platelet Estimate Adequate (ADEQUATE) Sodium Level 133 mmol/L (136-145) Potassium Level 4.5 mmol/L (3.5-5.1) Chloride Level 95 mmol/L (98-107) Carbon Dioxide Level 24 mmol/L (21-32) Anion Gap 14 (6-14) Blood Urea Nitrogen 48 mg/dL (8-26) Creatinine 5.0 mg/dL (0.7-1.3) Estimated GFR (Cockcroft-Gault) 11.5 BUN/Creatinine Ratio 10 (6-20) Glucose Level 472 mg/dL (70-99) Calcium Level 8.3 mg/dL (8.5-10.1) Total Bilirubin 0.6 mg/dL (0.2-1.0) Aspartate Amino Transf (AST/SGOT) 140 U/L (15-37) Alanine Aminotransferase (ALT/SGPT) 106 U/L (16-63) Alkaline Phosphatase 262 U/L (46-116) Total Protein 7.1 g/dL (6.4-8.2) Albumin 2.3 g/dL (3.4-5.0) Albumin/Globulin Ratio 0.5 (1.0-1.7) Test 04/08/22 11:54 Glucose (Fingerstick) 304 mg/dL (70-99) Micro Microbiology 04/04/22 Blood Culture - Final, Complete Staphylococcus Aureus Objective Assessment IMPRESSION: 1. Blood culture positive from [place], gram-positive cocci.// MSSA 2. Severe neck pain, rule out diskitis. 3. End-stage renal disease, on hemodialysis. 4. COVID-19 positive. 5. Automatic implantable cardioverter-defibrillator in place. 6. Cardiomyopathy. Plan Plan of Care ct neck neg for infection cont antibiotics Repeat blood cultures in a.m. Awaiting culture results and medical records from [facility] Patient had bloodstream infection in the recent past. Discussed with nursing staff need to remove HD cath tomorrow after HD,, d/w Dr Tracy also has pacemaker need ADELINA RAJESH SANCHEZ MD April 08, 2022 13:29
[2022-04-08 15:00] VITALS: BP 106/50
[2022-04-08 19:00] VITALS: BP 131/65
[2022-04-08] MEDS: ATORVASTATIN CALCIUM 40 MG TABLET. PO SCH (21:43)
[2022-04-08] MEDS: GABAPENTIN 300 MG CAPSULE. PO SCH (21:43)
[2022-04-08] MEDS: INSULIN GLARGINE SYRINGE. SQ SCH (21:45)
[2022-04-08 22:41] VITALS: BP 147/66
[2022-04-09 03:08] VITALS: BP 138/71
[2022-04-09] MEDS: HYDROcodone/APAP 5/325MG 1 TAB TABLET PO PRN ×3 (03:41→20:44)
[2022-04-09 04:22] LABS: CALCIUM 8.6 mg/dL (8.5-10.1); CREATININE 6.2 mg/dL (0.7-1.3); GFR 8.9; POTASSIUM 4.6 mmol/L (3.5-5.1)
[2022-04-09] MEDS: PANTOPRAZOLE 40 MG TABLET.DR. PO SCH (07:30)
[2022-04-09] MEDS: INSULIN LISPRO 300 UNITS/3 ML VIAL. SQ SCH ×4 (07:30→20:45)
[2022-04-09 07:58] VITALS: BP 128/61
[2022-04-09] MEDS ORDERED: DIALYSIS PATIENT. MC PRN ×2 (08:15)
[2022-04-09] MEDS ORDERED: ALBUMIN HUMAN 25% 200 ML IV PRN (08:15)
[2022-04-09] MEDS: ZINC SULFATE 220 MG CAPSULE. PO SCH (09:00)
[2022-04-09] MEDS: LACTOBACILLUS RHAMNOSUS GG 1 CAPSULE. PO SCH ×2 (09:00→20:43)
[2022-04-09] MEDS: DOCUSATE SODIUM 100 MG CAPSULE. PO SCH ×2 (09:00→20:43)
[2022-04-09] MEDS: ASCORBIC ACID 500 MG TABLET PO SCH (09:00)
[2022-04-09] MEDS: APIXABAN 2.5 MG TABLET. PO SCH ×2 (09:00→18:53)
[2022-04-09] MEDS: THIAMINE 100 MG TABLET. PO SCH (09:00)
--- NOTE | 2022-04-09 09:32 | PDOC ---
DATE OF SERVICE DATE: 04/09/22 TIME: 09:32 SUBJECTIVE ROS No complaints on dialysis OBJECTIVE Vital Signs Vital Signs Date Time Temp Pulse Resp B/P (MAP) Pulse Ox O2 Delivery O2 Flow Rate FiO2 04/09/22 04:11 18 100 Room Air 2.0 04/09/22 03:08 98.4 64 138/71 (93) 98.4 I & 0 Intake and Output 04/09/22 07:00 Intake Total 1360 ml Output Total 0 ml Balance 1360 ml Intake Oral 1360 ml Output Urine Total 0 ml PHYSICAL EXAM Physical Exam GENERAL: not in distress. HEENT: Both pupils are round and reacting. No conjunctival lesion, OM moist NECK: Supple, LUNGS: Clear.Non labored HEART: S1, S2, regular. ABDOMEN: Soft, nontender, no organomegaly. EXTREMITIES: No edema, cyanosis. SKIN: Unremarkable. NEURO No focal neurologic deficit. DIAGNOSIS/ASSESSMENT Assessment & Plan ESRD on HD TTS - states at [facility] , he is a seen during treatment, tolerating well . No complaints. Continue as ordered . DwDRN Access Tunneled HDC - will dc after dialysis today 2/2 bacteremia. Patient reports was scheduled for vein mapping but some delay from the [facility] . Will Consult Vascular Blood culture positive from [place], gram-positive cocci.// MSSA- Per ID recommendations, remove HDC after dialysis today . Hold off on placing new HDC . Dw Patient and RN Severe neck pain, CT cervical spine on 04/08. COVID-19 positive. Cardiomyopathy - ischemic by history, s/p AICD [facility] paced rhythm with underlying afib HTN - low BP since DM2 Chronic AFIB - rate controlled with pacer AICD CAD - prior PCI. Sees Dr. Sena through the [facility] UTI - morganella UTI in January 2022, recurred currently COMMENT/RELEVANT DATA Meds Current Medications Medications (Trade) Dose Ordered Sig/Mariza Start Time Stop Time Status Last Admin Dose Admin Acetaminophen (Tylenol) 650 mg PRN Q6HRS PRN 04/02/22 21:00 04/03/22 22:45 650 MG Acetaminophen/ Hydrocodone Bitart (Lortab 5/325) 1 tab PRN Q6HRS PRN 04/02/22 21:00 04/09/22 03:41 1 TAB Albumin Human 200 ml @ 200 mls/hr 1X PRN PRN 04/09/22 08:15 04/09/22 14:14 Apixaban (Eliquis) 2.5 mg BID 04/02/22 21:30 04/08/22 21:42 2.5 MG Ascorbic Acid (Vitamin C) 500 mg DAILY 04/03/22 09:00 04/08/22 07:56 500 MG Atorvastatin Calcium (Lipitor) 80 mg QHS 04/02/22 21:30 04/08/22 21:43 80 MG Cefazolin Sodium (Ancef) 1 gm Q12H 04/07/22 15:00 04/08/22 21:42 1 GM Ceftriaxone Sodium (Rocephin) 2 gm Q24H 04/03/22 17:00 04/07/22 14:53 DC 04/06/22 17:03 2 GM Cetirizine HCl (ZyrTEC) 10 mg DAILY 04/03/22 09:00 04/08/22 07:56 10 MG Dexamethasone (Decadron) 6 mg DAILYWBKFT 04/07/22 08:00 04/08/22 11:02 DC 04/08/22 07:56 6 MG Dextrose (Dextrose 50%-Water Syringe) 12.5 gm PRN Q15MIN PRN 04/02/22 21:00 Docusate Sodium (Colace) 100 mg BID 04/02/22 21:30 04/08/22 21:42 100 MG Epoetin Curt (PROCRIT for DIALYSIS PTS) 20,000 unit 1X ONCE 04/03/22 21:00 04/03/22 21:01 DC 04/03/22 20:59 20,000 UNIT Fentanyl Citrate (Fentanyl 2ml Vial) 25 mcg PRN Q3HRS PRN 04/02/22 21:00 Gabapentin (Neurontin) 300 mg HS 04/02/22 21:30 04/08/22 21:43 300 MG Guaifenesin (Robitussin Dm) 10 ml PRN Q6HRS PRN 04/02/22 21:00 04/06/22 15:35 10 ML Heparin Sodium (Porcine) (Heparin Sodium) 5,000 unit Q8HRS 04/02/22 22:00 04/02/22 21:19 DC Hydralazine HCl (Apresoline Inj) 10 mg PRN Q4HRS PRN 04/02/22 21:00 Info (PHARMACY MONITORING -- do not chart) 1 each PRN DAILY PRN 04/09/22 08:15 Insulin Glargine (Lantus Syringe) 22 unit QHS 04/02/22 21:30 04/08/22 21:45 22 UNIT Insulin Human Lispro (HumaLOG) 14 units 1X ONCE 04/08/22 08:15 04/08/22 08:16 DC 04/08/22 08:23 14 UNITS Lactobacillus Rhamnosus (Culturelle) 1 cap BID 04/04/22 09:00 04/08/22 21:42 1 CAP Nitroglycerin (Nitrostat) 0.4 mg PRN Q5MIN PRN 04/02/22 21:00 Ondansetron HCl (Zofran Odt) 4 mg PRN Q4HRS PRN 04/02/22 21:00 Ondansetron HCl (Zofran) 4 mg PRN Q4HRS PRN 04/02/22 21:00 Pantoprazole Sodium (Protonix) 40 mg DAILYAC 04/03/22 07:30 04/08/22 07:56 40 MG Phenol (Chloraseptic) 1 spray PRN Q2HR PRN 04/06/22 15:45 Sodium Chloride 1,000 ml @ 400 mls/hr Q2H30M PRN 04/04/22 06:45 04/04/22 18:44 DC Sodium Chloride (Normal Saline Flush) 10 ml 1X PRN PRN 04/03/22 10:00 04/04/22 09:59 DC Thiamine Mononitrate (Vitamin B-1) 100 mg DAILY 04/03/22 09:00 04/08/22 07:56 100 MG Tramadol HCl (Ultram) 50 mg PRN Q6HRS PRN 04/02/22 21:00 04/02/22 22:01 50 MG Vancomycin HCl (Vanco Per Pharmacy) 1 each PRN DAILY PRN 04/04/22 13:30 04/07/22 15:03 DC 04/06/22 11:58 1 EACH Vancomycin HCl (Vancomycin Random Level) 1 each 1X ONCE 04/06/22 05:00 04/06/22 05:01 DC 04/06/22 05:00 1 EACH Vancomycin HCl 500 mg/Dextrose 500 ml @ 500 mls/hr [id number] 5/24/22 16:00 04/07/22 14:53 DC Vancomycin HCl 2 gm/Sodium Chloride 500 ml @ 250 mls/hr 1X ONCE 04/04/22 14:00 04/04/22 15:59 DC 04/04/22 15:32 250 MLS/HR Zinc Sulfate (Orazinc) 220 mg DAILY 04/03/22 09:00 04/08/22 07:56 220 MG Lab Laboratory Tests Test 04/08/22 11:54 04/08/22 17:18 04/08/22 21:04 04/09/22 02:50 Glucose (Fingerstick) 304 mg/dL (70-99) 294 mg/dL (70-99) 379 mg/dL (70-99) Sodium Level 136 mmol/L (136-145) Potassium Level 4.6 mmol/L (3.5-5.1) Chloride Level 94 mmol/L (98-107) Carbon Dioxide Level 27 mmol/L (21-32) Anion Gap 15 (6-14) Blood Urea Nitrogen 71 mg/dL (8-26) Creatinine 6.2 mg/dL (0.7-1.3) Estimated GFR (Cockcroft-Gault) 8.9 Glucose Level 323 mg/dL (70-99) Calcium Level 8.6 mg/dL (8.5-10.1) Results All relevant outside records, renal labs, imaging studies, telemetry/EKG's were reviewed. Justicifation of Admission Dx: Justifications for Admission: Justification of Admission Dx: N/A RIVER BRINK MD April 09, 2022 09:32
[2022-04-09] MEDS ORDERED: LIDOCAINE 2% VISCOUS 15 ML SOLUTION. SWSW ONE (10:15)
[2022-04-09] MEDS ORDERED: LIDOCAINE 2% TOPICAL JELLY 30GM TUBE. TP ONE (10:15)
[2022-04-09] MEDS ORDERED: BENZOCAINE ONE 20% MUCOSAL SPRAY. MM (10:15)
--- NOTE | 2022-04-09 11:44 | PDOC2 ---
SAIDA BOSTON CONDUCTOR PULLMAN 04/09/22 1144: CARDIAC CONSULT DATE OF CONSULT Date of Consult DATE: 04/09/22 TIME: 11:27 REASON FOR CONSULT Reason for Consult: Bacteremia, needing ADELINA REFERRING PHYSICIAN Referring Physician: Charissa SOURCE Source: Chart review, Patient HISTORY OF PRESENT ILLNESS HISTORY OF PRESENT ILLNESS This is a 72 yo male admitted for complains of SOA. He has been feeling weak and has been having body aches and further testing revealed that he has covid-19 tested on 04/02 and his had covid-19 over 2 weeks ago. He is vaccinated. He was initially at [facility] and transferred to [facility] for further treatment. Denies any chest pain, palpitations. 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 Further testing also revealed bacteremia with MSSA and needing ADELINA requested by ID. PAST MEDICAL HISTORY Past Medical History Cardiovascular: AFIB, CAD, CHF, HTN, Hyperlipidemia, syncope Pulmonary: COPD (?) CENTRAL NERVOUS SYSTEM: Other (No pertinent history) GI: GERD Heme/Onc: Anemia NOS Hepatobiliary: No pertinent hx Musculoskeletal: Osteoarthritis Rheumatologic: No pertinent hx Infectious disease: No pertinent hx ENT: No pertinent hx Renal/: Chronic renal failure Endocrine: Diabetes Dermatology: No pertinent hx PAST SURGICAL HISTORY Past Surgical History Pacemaker (AICD), Other (PCI) FAMILY HISTORY Family History: Heart Disease SOCIAL HISTORY Smoke: # pack years (cigar) ALCOHOL: none Drugs: None Lives: with Family ALLERGIES ALLERGIES: Coded Allergies: No Known Drug Allergies (Unverified , 01/31/22) ROS Review of System 10 point ROS evlauated with pertinent positives noted per HPI PHYSICAL EXAM General: Alert, Oriented X3, Cooperative, No acute distress HEENT: Atraumatic, Mucous membr. moist/pink Lungs: Clear to auscultation, Normal air movement, Other (faint crackles to bases) Heart: Normal S1, Normal S2, Other (AFIB, 2/6 systolic murmur to LLS border) Abdomen: Soft, No tenderness Extremities: No cyanosis, No edema Skin: No breakdown, No significant lesion Neuro: Normal speech, Sensation intact Psych/Mental Status: Mental status NL, Mood NL MUSCULOSKELETAL: Osteoarthritic changes both hands VITALS/I&O VITALS/I&O: Vital Signs Date Time Temp Pulse Resp B/P (MAP) Pulse Ox O2 Delivery O2 Flow Rate FiO2 04/09/22 08:00 Room Air 04/09/22 07:58 66 18 128/61 (83) 04/09/22 04:11 100 2.0 04/09/22 03:08 98.4 98.4 I & O 04/08/22 04/08/22 04/09/22 15:00 23:00 07:00 Intake Total 660 ml 700 ml 0 ml Output Total 0 ml Balance 660 ml 700 ml 0 ml LABS Lab: Laboratory Tests Test 04/08/22 11:54 04/08/22 17:18 04/08/22 21:04 04/09/22 02:50 Glucose (Fingerstick) 304 mg/dL (70-99) H 294 mg/dL (70-99) H 379 mg/dL (70-99) H Sodium Level 136 mmol/L (136-145) Potassium Level 4.6 mmol/L (3.5-5.1) Chloride Level 94 mmol/L (98-107) L Carbon Dioxide Level 27 mmol/L (21-32) Anion Gap 15 (6-14) H Blood Urea Nitrogen 71 mg/dL (8-26) H Creatinine 6.2 mg/dL (0.7-1.3) H Estimated GFR (Cockcroft-Gault) 8.9 Glucose Level 323 mg/dL (70-99) H Calcium Level 8.6 mg/dL (8.5-10.1) Laboratory Tests 04/09/22 02:50 ASSESSMENT/PLAN ASSESSMENT/PLAN 1. Bacteremia: MSSA 2. ESRD 3. AICD in situ: [facility] [facility]. intermittent pacing with underlying AFIB 4. Chronic AFIB: rate controlled 5. Hypertension: controlled 6. Hyperlipidemia 7. DM2 8. CAD: past PCI/stents clinically stable 9. Covid-19: vaccinated 10. Chronic systolic CHF: compensated 11. Cardiomyopathy Recommendations 1. ADELINA today to rule out endocarditis 2. Continue secondary prevention measures. 3. Fluid off loading per HD 4. Noted before with no rate controlling agents on his regimen, unclear why uncless issues with orthostasis which was noted from previous admission. BB PRN for now if rate becomes an issue. Continue eliquis for stroke prevention and would qualify for full dose eliquis rather than 2.5 mg bid. Awaiting HD cath removal. If another HD cath is to be placed then would consider holding eliquis otherwise may resume tonight JESSICA SANCHEZ MD 04/09/22 0841: CARDIAC CONSULT ASSESSMENT/PLAN ASSESSMENT/PLAN Patient seen and examined. Agree with [facility] CONSULTANT's assessment and plan Perm atrial fib rate controlled CAD clinically stable Chr systolic HF compensated ADELINA showed EF 20% without any vegetations or thrombus Continue fluid removal with HD per nephrology team Thank you for your consultation SAIDA BOSTON APRN April 09, 2022 11:44 JESSICA SANCHEZ MD April 09, 2022 18:55
[2022-04-09] MEDS ORDERED: METOPROLOL IV PUSH 5 MG/5 ML VIAL. IVP PRN (11:45)
--- NOTE | 2022-04-09 13:17 | PDOC ---
[employer] PROGRESS NOTE Date of Service DOS: DATE: 04/09/22 TIME: 13:16 Chief Complaint Chief Complaint COVID 19 - supportive care. Monitor O2 saturations, maintain > 89%. If hypoxic will initiate decadron and remdesivir therapy; Staph aureus bacteremia - recurrently positive, was positive at [facility] Weakness - likely related to COVID 19, also with some uremia Myalgias - viral syndrome ESRD - with uremia. Consult nephrology for missed dialysis session. Started dialysis this past November 2021, has RIJ tunneled dialysis catheter Cardiomyopathy - ischemic by history, s/p AICD [facility] paced rhythm with underlying afib HTN - low BP since HLD - statin DM2 - basal bolus plus insulin while inpatient Chronic AFIB - rate controlled with pacer AICD CAD - prior PCI. Sees Dr. Sena through the [facility] UTI - morganella UTI in January 2022, recurred currently Severe malnutrition History of Present Illness History of Present Illness 04/05: Evaluate examined at bedside. A bit lethargic but improving. Nephrology infectious disease recommendations reviewed. Waiting on [place] culture results still. Continue IV antibiotics. Dialysis tomorrow. Therapy modalities. 04/04: Patient evaluated undergoing dialysis. He is a bit lethargic but no major complaints. Continue current. Therapy evaluation for possible placement. Discussed with bedside RN. Database Designer recommendations reviewed. 04/03: Patient afebrile, resting comfortably on room air. Denies any shortness of breath. Reports some muscle aches in his neck, shoulders, and proximal legs. States he has not had dialysis and few days due to his weakness. Potassium 4.1; I doubt there is any urgent need for dialysis at this time, but will wait for nephrology impression. 04/08: Urine culture from [facility] with greater than 100,000 CFU of Morganella Heron high sensitive to Rocephin. Blood culture 1 out of 4 bottles positive for staph aureus MSSA from [facility]. He is able to eat today not hypoxic. Feeling little stronger. 04/09: Repeat 523 blood cultures no growth to date. Tolerated dialysis well is little tired sore throat and neck pain are improving. He has been made n.p.o. for ADELINA and will have his tunneled dialysis catheter removed after he is been off his Eliquis an additional day. Feeling weaker Vitals/I&O Vitals/I&O: Vital Signs Date Time Temp Pulse Resp B/P (MAP) Pulse Ox O2 Delivery O2 Flow Rate FiO2 04/09/22 08:00 Room Air 04/09/22 07:58 66 18 128/61 (83) 04/09/22 04:11 100 2.0 04/09/22 03:08 98.4 98.4 I & O 04/08/22 04/08/22 04/09/22 15:00 23:00 07:00 Intake Total 660 ml 700 ml 0 ml Output Total 0 ml Balance 660 ml 700 ml 0 ml Physical Exam Physical Exam: GENERAL: Alert, oriented gentleman, not in distress. VITAL SIGNS: stable HEENT: Both pupils are round and reacting. No conjunctival lesion, no lesion in the mouth. NECK: Supple, no JVP, no lymphadenopathy. LUNGS: Clear. HEART: S1, S2, regular. ABDOMEN: Soft, nontender, no organomegaly. EXTREMITIES: No edema, cyanosis. SKIN: Unremarkable. MUSCULOSKELETAL: In particular, his neck is stiff, but it is difficult to evaluate since his muscles are very tight in the neck and the pain is in the middle of the neck as well as has radiation into the bilateral shoulders. NEUROLOGIC: The patient is alert, awake, and appropriate. No focal neurologic deficit. General: Alert, Oriented X3, Cooperative, No acute distress Heart: Normal S1, Normal S2, Other (AFIB, 2/6 systolic murmur to LLS border) Lungs: Clear Abdomen: Soft, No tenderness Extremities: No cyanosis, No edema Skin: No breakdown, No significant lesion Labs Labs: Laboratory Tests Test 04/08/22 17:18 04/08/22 21:04 04/09/22 02:50 Glucose (Fingerstick) 294 mg/dL (70-99) 379 mg/dL (70-99) Sodium Level 136 mmol/L (136-145) Potassium Level 4.6 mmol/L (3.5-5.1) Chloride Level 94 mmol/L (98-107) Carbon Dioxide Level 27 mmol/L (21-32) Anion Gap 15 (6-14) Blood Urea Nitrogen 71 mg/dL (8-26) Creatinine 6.2 mg/dL (0.7-1.3) Estimated GFR (Cockcroft-Gault) 8.9 Glucose Level 323 mg/dL (70-99) Calcium Level 8.6 mg/dL (8.5-10.1) Comment Review of Relevant I have reviewed the following items kate (where applicable) has been applied. Justifications for Admission General Conditions Poss hypotension?: Yes Justification for admission: Patient has hypotension (SBP < 90 mm Hg) which is not readily corrected by appropriate treatment within 12 to 24 hours. Poss Metaboilic Acidosis?: Yes Justification for admission: Patient has tachycardia (> 100 beats per minute) or hypotension (SBP < 90 mm Hg) leading to inadequate systemic perfusion as indicated by metabolic acidosis with arterial pH of less than 7.35. Other Justification SHELIA OCASIO MD April 09, 2022 13:17
[2022-04-09] MEDS: CETIRIZINE HCL 10 MG TABLET. PO SCH (13:24)
[2022-04-09] MEDS: ceFAZolin SODIUM IV Push 1 GM VIAL. IVP SCH ×2 (13:25→21:21)
[2022-04-09] MEDS ORDERED: PROPOFOL 10 MG/ML (20ML) VIAL. IV ONE (13:52)
[2022-04-09] MEDS ORDERED: LIDOCAINE 2% PF 5 ML VIAL. ONE (13:52)
[2022-04-09] MEDS ORDERED: PHENYLEPHRINE in 0.9% NACL PF 1 MG/10 ML SYRINGE. IV ONE (13:52)
--- NOTE | 2022-04-09 14:09 | NUR ---
SS following up with discharge planning. SS reviewed pt chart and discussed with pt RN. Pt is currently on room air. COVID19 positive. Pt has outpatient hemodialysis at [facility], ; fax [phone], Friday, , and Friday. PT/OT now recommending home with home healthcare. SS will continue to follow for discharge planning.
--- NOTE | 2022-04-09 14:59 | PDOC ---
Infectious Disease Note Subjective Subjective pt is feeling good neck is better ROS ROS no n/v/d/sob Vital Sign Vital Signs Vital Signs Date Time Temp Pulse Resp B/P (MAP) Pulse Ox O2 Delivery O2 Flow Rate FiO2 04/09/22 08:00 Room Air 04/09/22 07:58 66 18 128/61 (83) 04/09/22 04:11 100 2.0 04/09/22 03:08 98.4 98.4 Physical Exam PHYSICAL EXAM GENERAL: Alert, oriented gentleman, not in distress. VITAL SIGNS: stable HEENT: Both pupils are round and reacting. No conjunctival lesion, no lesion in the mouth. NECK: Supple, no JVP, no lymphadenopathy. LUNGS: Clear. HEART: S1, S2, regular. ABDOMEN: Soft, nontender, no organomegaly. EXTREMITIES: No edema, cyanosis. SKIN: Unremarkable. MUSCULOSKELETAL: In particular, his neck is stiff, but it is difficult to evaluate since his muscles are very tight in the neck and the pain is in the middle of the neck as well as has radiation into the bilateral shoulders. NEUROLOGIC: The patient is alert, awake, and appropriate. No focal neurologic deficit. Labs Lab Laboratory Tests Test 04/08/22 17:18 04/08/22 21:04 04/09/22 02:50 Glucose (Fingerstick) 294 mg/dL (70-99) 379 mg/dL (70-99) Sodium Level 136 mmol/L (136-145) Potassium Level 4.6 mmol/L (3.5-5.1) Chloride Level 94 mmol/L (98-107) Carbon Dioxide Level 27 mmol/L (21-32) Anion Gap 15 (6-14) Blood Urea Nitrogen 71 mg/dL (8-26) Creatinine 6.2 mg/dL (0.7-1.3) Estimated GFR (Cockcroft-Gault) 8.9 Glucose Level 323 mg/dL (70-99) Calcium Level 8.6 mg/dL (8.5-10.1) Micro Microbiology 04/04/22 Blood Culture - Final, Complete Staphylococcus Aureus Objective Assessment IMPRESSION: 1. Blood culture positive from [place], gram-positive cocci.// MSSA 2. Severe neck pain, rule out diskitis. 3. End-stage renal disease, on hemodialysis. 4. COVID-19 positive. 5. Automatic implantable cardioverter-defibrillator in place. 6. Cardiomyopathy. Plan Plan of Care ct neck neg for infection cont antibiotics Repeat blood cultures in a.m. Awaiting culture results and medical records from [facility] Patient had bloodstream infection in the recent past. Discussed with nursing staff HD cath tomorrow , d/w Dr Rossana SAHU neg d/w cardiology RAJESH SANCHEZ MD April 09, 2022 14:59
--- NOTE | 2022-04-09 15:27 | CARD ---
MR#: [id number] Date of Study: 04/09/2022 Ordering Physician: SAIDA BOSTON, Referring Physician: SAIDA BOSTON Tech: MICHELLE RIDER [facility] APPROVED REPORT EXAM: Transesophageal echocardiogram with color flow Doppler. INDICATION Infection:Rule out subacute bacterial endocarditis + COVID Reason For Test : Rule out endocarditis. PROCEDURE After obtaining informed consent, patient underwent transesophageal echo in the IN PATIENT ROOM Type of Sedation : General Anesthesia Sedation was administered by JOHN MEHTA. Sedation was achieved with Propofol 90 intravenously. Transesophageal probe was inserted and advanced into esophagus by Jay Jay Monroe MD. The ADELINA was performed without complications. Throughout the procedure, the blood pressure, pulse oximetry, cardiac rhythm, and rate were monitored . The patient tolerated the procedure without adverse effects. Recovery from general anesthesia was une ventful and vital signs were stable. LEFT VENTRICLE The left ventricle is normal size. There is normal left ventricular wall thickness. The ejection frac tion is severely impaired. EF 20% There is severe global hypokinesis. Tissue Doppler imaging reveals severe left ventricular diastolic dysfunction. No left ventricle thrombus noted on this study. There is no ventricular septal defect visualized. There is no left ventricular aneurysm. There is no mass n oted in the left ventricle. RIGHT VENTRICLE The right ventricle is normal size. There is normal right ventricular wall thickness. The right ventr icular systolic function is normal. ATRIA The left atrium is moderately dilated. There is a catheter/pacemaker lead seen in the right atrium. T here is a small PFO noted on Doppler imaging, agitated contrast saline was not performed on this stud y. There is no thrombus noted in the left atrial appendage. AORTIC VALVE The aortic valve is trileaflet. Doppler and Color Flow revealed no significant aortic regurgitation. There is no significant aortic valvular stenosis. There is no aortic valvular vegetation. MITRAL VALVE The mitral valve is mildly thickened. There is no evidence of mitral valve prolapse. There is no mitr al valve stenosis. Doppler and Color-flow revealed moderate mitral regurgitation. TRICUSPID VALVE The tricuspid valve is normal in structure and function. Doppler and Color Flow revealed moderate tri cuspid regurgitation. There is no tricuspid valve stenosis. PULMONIC VALVE Doppler and Color Flow revealed no pulmonic valvular regurgitation. There is no pulmonic valvular merrick nosis. GREAT VESSELS The aortic root is normal in size. The IVC is normal in size and collapses >50% with inspiration. <Conclusion> The ejection fraction is severely impaired. EF 20% There is severe global hypokinesis. There is a small PFO noted on Doppler imaging, agitated contrast saline was not performed on this [place] dy. Doppler and Color-flow revealed moderate mitral regurgitation. Doppler and Color Flow revealed moderate tricuspid regurgitation. Signed by : Dread Monroe, Electronically Approved : 04/09/2022 15:27:37
[2022-04-09] MEDS ORDERED: VANCOMYCIN IV SCH (16:00)
[2022-04-09] MEDS ORDERED: DEXTROSE 5% IV SCH (16:00)
[2022-04-09] MEDS: traMADol 50 MG TABLET PO PRN (17:57)
[2022-04-09 19:41] VITALS: BP 102/73
[2022-04-09] MEDS: ATORVASTATIN CALCIUM 40 MG TABLET. PO SCH (20:43)
[2022-04-09] MEDS: GABAPENTIN 300 MG CAPSULE. PO SCH (20:44)
[2022-04-09] MEDS: INSULIN GLARGINE SYRINGE. SQ SCH (20:46)
[2022-04-09 22:30] VITALS: BP 91/44
[2022-04-10 02:30] VITALS: BP 111/52
[2022-04-10 07:00] VITALS: BP 104/53
[2022-04-10] MEDS: INSULIN LISPRO 300 UNITS/3 ML VIAL. SQ SCH ×4 (07:30→20:54)
--- NOTE | 2022-04-10 08:28 | PDOC2 ---
CONSULT Date of Service Date of Service DATE: 04/10/22 TIME: 08:13 Reason for Consult Reason for Consult: AV access creation Referring Physician Referring Physician: Dr. Carrington Source Source: Patient History of Present Illness Reason for Visit: 71 yo M who is admitted with MSSA bacteremia and with asymptomatic +COVID secondary to exposure from his spouse. He is ESRD on HD via tunneled right IJ catheter. He has a hx of AICD/pacemaker in left arm. Also with hx of DM 2 and HTN. [facility] He has never been evaluated for fistula access for dialysis. HE has been dialyzing through the catheter since November and this is his third episode of bacteremia presumably related to the catheter. ADELINA performed recently was negative for cardiac vegetations. HE denies any history of DVT. He reports good function of both hands. He does report he did have some left arm swelling while hospitalized earlier this year. He is on eliquis for hx of A fib last dose was 04/08/22 in the evening. Past Medical History Cardiovascular: AFIB, CAD, CHF, HTN, Hyperlipidemia Pulmonary: COPD CENTRAL NERVOUS SYSTEM: Other GI: GERD Heme/Onc: Anemia NOS Hepatobiliary: No pertinent hx Musculoskeletal: Osteoarthritis Rheumatologic: No pertinent hx Infectious disease: No pertinent hx Renal/: Chronic renal failure Endocrine: Diabetes, Hyperparathyroidism Past Surgical History Past Surgical History: Pacemaker, Other Family History Family History: Heart Disease Social History # pack years (cigar) ALCOHOL: none Drugs: None Lives: with Family Current Medications Current Medications Current Medications Acetaminophen/ Hydrocodone Bitart (Lortab 5/325) 1 tab PRN Q6HRS PRN PO PAIN SEVERE Last administered on 04/09/22at 20:44; Start 04/02/22 at 21:00 Zinc Sulfate (Orazinc) 220 mg DAILY PO Last administered on 04/08/22at 07:56; Start 04/03/22 at 09:00 Thiamine Mononitrate (Vitamin B-1) 100 mg DAILY PO Last administered on 04/08/22at 07:56; Start 04/03/22 at 09:00 Ascorbic Acid (Vitamin C) 500 mg DAILY PO Last administered on 04/08/22at 07:56; Start 04/03/22 at 09:00 Acetaminophen (Tylenol) 650 mg PRN Q6HRS PRN PO MILD PAIN / TEMP > 100.3'F Last administered on 04/03/22at 22:45; Start 04/02/22 at 21:00 Heparin Sodium (Porcine) (Heparin Sodium) 5,000 unit Q8HRS SQ ; Start 04/02/22 at 22:00; Stop 04/02/22 at 21:19; Status DC Hydralazine HCl (Apresoline Inj) 10 mg PRN Q4HRS PRN IVP ELEVATED BP, SEE COMMENTS; Start 04/02/22 at 21:00 Nitroglycerin (Nitrostat) 0.4 mg PRN Q5MIN PRN SL CHEST PAIN; Start 04/02/22 at 21:00 Ondansetron HCl (Zofran Odt) 4 mg PRN Q4HRS PRN PO NAUSEA; Start 04/02/22 at 21:00 Guaifenesin (Robitussin Dm) 10 ml PRN Q6HRS PRN PO COUGH Last administered on 04/06/22at 15:35; Start 04/02/22 at 21:00 Ondansetron HCl (Zofran) 4 mg PRN Q4HRS PRN IVP NAUSEA/VOMITING; Start 04/02/22 at 21:00 Tramadol HCl (Ultram) 50 mg PRN Q6HRS PRN PO PAIN MODERATE Last administered on 04/09/22at 17:57; Start 04/02/22 at 21:00 Fentanyl Citrate (Fentanyl 2ml Vial) 25 mcg PRN Q3HRS PRN IVP SEVERE PAIN 7-10; Start 04/02/22 at 21:00 Insulin Human Lispro (HumaLOG) 0-9 UNITS TIDACHC SQ Last administered on 04/09/22at 20:45; Start 04/02/22 at 21:30 Dextrose (Dextrose 50%-Water Syringe) 12.5 gm PRN Q15MIN PRN IV SEE COMMENTS; Start 04/02/22 at 21:00 Docusate Sodium (Colace) 100 mg BID PO Last administered on 04/09/22at 20:43; Start 04/02/22 at 21:30 Albumin Human 250 ml @ 62.5 mls/hr PRN DAILY PRN IV HYPOTENSION; Start 04/02/22 at 21:00 Apixaban (Eliquis) 2.5 mg BID PO Last administered on 04/08/22at 21:42; Start 04/02/22 at 21:30 Cetirizine HCl (ZyrTEC) 10 mg DAILY PO Last administered on 04/09/22at 13:24; Start 04/03/22 at 09:00 Pantoprazole Sodium (Protonix) 40 mg DAILYAC PO Last administered on 04/08/22at 07:56; Start 04/03/22 at 07:30 Gabapentin (Neurontin) 300 mg HS PO Last administered on 04/09/22at 20:44; Start 04/02/22 at 21:30 Insulin Glargine (Lantus Syringe) 22 unit QHS SQ Last administered on 04/09/22at 20:46; Start 04/02/22 at 21:30 Atorvastatin Calcium (Lipitor) 80 mg QHS PO Last administered on 04/09/22at 20:43; Start 04/02/22 at 21:30 Sodium Chloride 1,000 ml @ 1,000 mls/hr Q1H PRN IV hypotension; Start 04/03/22 at 10:00; Stop 04/03/22 at 15:59; Status DC Albumin Human 200 ml @ 200 mls/hr 1X PRN PRN IV Hypotension; Start 04/03/22 at 10:00; Stop 04/03/22 at 15:59; Status DC Sodium Chloride (Normal Saline Flush) 10 ml 1X PRN PRN IV AP catheter pack; Start 04/03/22 at 10:00; Stop 04/04/22 at 09:59; Status DC Sodium Chloride (Normal Saline Flush) 10 ml 1X PRN PRN IV PLASTIC PANEL INSTALLER catheter pack; Start 04/03/22 at 10:00; Stop 04/04/22 at 09:59; Status DC Sodium Chloride 1,000 ml @ 400 mls/hr Q2H30M PRN IV PATENCY; Start 04/03/22 at 10:00; Stop 04/03/22 at 21:59; Status DC Info (PHARMACY MONITORING -- do not chart) 1 each PRN DAILY PRN MC SEE COMMENTS; Start 04/03/22 at 10:00; Status Cancel Info (PHARMACY MONITORING -- do not chart) 1 each PRN DAILY PRN MC SEE COMMENTS; Start 04/03/22 at 10:00; Status UNV Epoetin Curt (PROCRIT for DIALYSIS PTS) 20,000 unit 1X ONCE SQ Last administered on 04/03/22at 20:59; Start 04/03/22 at 21:00; Stop 04/03/22 at 21:01; Status DC Ceftriaxone Sodium (Rocephin) 2 gm Q24H IVP Last administered on 04/06/22at 17:03; Start 04/03/22 at 17:00; Stop 04/07/22 at 14:53; Status DC Sodium Chloride 1,000 ml @ 1,000 mls/hr Q1H PRN IV hypotension; Start 04/04/22 at 06:45; Stop 04/04/22 at 12:44; Status DC Sodium Chloride 1,000 ml @ 400 mls/hr Q2H30M PRN IV PATENCY; Start 04/04/22 at 06:45; Stop 04/04/22 at 18:44; Status DC Info (PHARMACY MONITORING -- do not chart) 1 each PRN DAILY PRN MC SEE COMMENTS; Start 04/04/22 at 06:45; Stop 04/08/22 at 12:12; Status DC Lactobacillus Rhamnosus (Culturelle) 1 cap BID PO Last administered on 04/09/22at 20:43; Start 04/04/22 at 09:00 Vancomycin HCl (Vanco Per Pharmacy) 1 each PRN DAILY PRN MC SEE COMMENTS Last administered on 04/06/22at 11:58; Start 04/04/22 at 13:30; Stop 04/07/22 at 15:03; Status DC Vancomycin HCl 2 gm/Sodium Chloride 500 ml @ 250 mls/hr 1X ONCE IV Last administered on 04/04/22at 15:32; Start 04/04/22 at 14:00; Stop 04/04/22 at 15:59; Status DC Vancomycin HCl (Vancomycin Random Level) 1 each 1X ONCE MC Last administered on 04/06/22at 05:00; Start 04/06/22 at 05:00; Stop 04/06/22 at 05:01; Status DC Albumin Human 200 ml @ 200 mls/hr 1X PRN PRN IV Hypotension Last administered on 04/06/22at 09:05; Start 04/06/22 at 08:30; Stop 04/06/22 at 14:29; Status DC Info (PHARMACY MONITORING -- do not chart) 1 each PRN DAILY PRN MC SEE COMMENTS; Start 04/06/22 at 08:30; Status UNV Info (PHARMACY MONITORING -- do not chart) 1 each PRN DAILY PRN MC SEE COMMENTS; Start 04/06/22 at 08:30; Stop 04/09/22 at 08:14; Status DC Vancomycin HCl 500 mg/Dextrose 500 ml @ 500 mls/hr [id number] IV ; Start 2 at 16:00; Stop 04/07/22 at 14:53; Status DC Phenol (Chloraseptic) 1 spray PRN Q2HR PRN PO SORE THROAT; Start 04/06/22 at 15:45 Dexamethasone (Decadron) 6 mg DAILYWBKFT PO Last administered on 04/08/22at 07:56; Start 04/07/22 at 08:00; Stop 04/08/22 at 11:02; Status DC Cefazolin Sodium (Ancef) 1 gm Q12H IVP Last administered on 04/09/22at 21:21; Start 04/07/22 at 15:00 Insulin Human Lispro (HumaLOG) 14 units 1X ONCE SQ Last administered on 04/08/22at 08:23; Start 04/08/22 at 08:15; Stop 04/08/22 at 08:16; Status DC Albumin Human 200 ml @ 200 mls/hr 1X PRN PRN IV Hypotension; Start 04/09/22 at 08:15; Stop 04/09/22 at 14:14; Status DC Info (PHARMACY MONITORING -- do not chart) 1 each PRN DAILY PRN MC SEE COMMENTS; Start 04/09/22 at 08:15 Info (PHARMACY MONITORING -- do not chart) 1 each PRN DAILY PRN MC SEE COMMENTS; Start 04/09/22 at 08:15 Benzocaine (Hurricaine One) 2 spray 1X ONCE MM ; Start 04/09/22 at 10:15; Stop 04/09/22 at 10:16; Status DC Lidocaine HCl (Xylocaine 2% Topical 30gm Tube) 1 jason 1X ONCE TP ; Start 04/09/22 at 10:15; Stop 04/09/22 at 10:16; Status DC Lidocaine HCl (Viscous Lidocaine) 15 ml 1X ONCE SWSW ; Start 04/09/22 at 10:15; Stop 04/09/22 at 10:16; Status DC Metoprolol Tartrate (Lopressor Vial) 5 mg PRN Q5MIN PRN IVP TACHYCARDIA; Start 04/09/22 at 11:45 Propofol (Diprivan) 200 mg STK-MED ONCE IV ; Start 04/09/22 at 13:52; Stop 04/09/22 at 13:52; Status DC Lidocaine HCl (Lidocaine Pf 2% Vial) 5 ml STK-MED ONCE .ROUTE ; Start 04/09/22 at 13:52; Stop 04/09/22 at 13:52; Status DC Phenylephrine HCl (PHENYLEPHRINE in 0.9% NACL PF) 1 mg STK-MED ONCE IV ; Start 04/09/22 at 13:52; Stop 04/09/22 at 13:52; Status DC Active Scripts Active Reported Vitamin D3 (Vitamin D) 25 Mcg Tablet 50 Mcg PO DAILY 1,000 UNITS = 25 MCG Spiriva (Tiotropium [place]) 18 Mcg Cap.w.dev 2 Inh IH DAILY Flecainide Acetate 100 Mg Tablet 1.5 Tab PO BID Butrans (Buprenorphine) 1 Each Patch.tdwk 1 Patch TP WEEKLY MDD 0.14 Patch(s) 28 Days Bumetanide 1 Mg Tablet 1 Tab PO QEVNG Proair Hfa Inhaler (Albuterol Sulfate) 8.5 Gm Hfa.aer.ad 2 Puff IH PRN Q4-6HRS PRN 21 Days Levemir (Insulin Detemir) 100 Unit/1 Ml Vial 24 Unit SQ HS Protonix (Pantoprazole Sodium) 40 Mg Tablet.dr 40 Mg PO DAILYAC Bumetanide 1 Mg Tablet 2 Tab PO DAILY Crestor (Rosuvastatin Calcium) 40 Mg Tablet 1 Tab PO DAILY Gabapentin 600 Mg Tablet 300 Mg PO HS Eliquis (Apixaban) 2.5 Mg Tablet 2.5 Mg PO BID Cetirizine Hcl 10 Mg Tablet 0.5 Tab PO DAILY Allergies Allergies: Coded Allergies: No Known Drug Allergies (Unverified , 01/31/22) ROS General: No: Chills, Night Sweats PSYCHOLOGICAL ROS: No: Disorientation, Hallucinations Eyes: No Blurry vision, No Decreased vision HEENT: No: Heacaches, Visual Changes Hematological and Lymphatic: No: Blood Clots, Pallor Respiratory: No: Cough, Sputum Changes Cardiovascular: No Chest Pain, No Palpitations Gastrointestinal: No Nausea, No Vomiting Musculoskeletal: No Gait Disturbance, No Joint Pain Neurological: No Dizziness, No Gait Disturbance Skin: No Mottling, No Pruritus Physical Exam General: Alert, Oriented X3 HEENT: Atraumatic, EOMI Lungs: Normal air movement Heart: Regular rate, Other (palpable radial and brachial pulses 2+ bilaterally. Normal allens test on right) Abdomen: Soft, No tenderness Extremities: No clubbing, No edema Skin: No rashes, No significant lesion Neuro: Normal gait, Normal speech, Normal tone Psych/Mental Status: Mental status NL MUSCULOSKELETAL: No joint tenderness, No deformity Vitals VITALS Vital Signs Date Time Temp Pulse Resp B/P (MAP) Pulse Ox O2 Delivery O2 Flow Rate FiO2 04/10/22 07:48 Room Air 04/10/22 02:30 98.0 52 17 111/52 (71) 95 98.0 04/09/22 18:36 2.0 Labs Labs Laboratory Tests Test 04/08/22 11:54 04/08/22 17:18 04/08/22 21:04 04/09/22 02:50 Glucose (Fingerstick) 304 mg/dL (70-99) 294 mg/dL (70-99) 379 mg/dL (70-99) Sodium Level 136 mmol/L (136-145) Potassium Level 4.6 mmol/L (3.5-5.1) Chloride Level 94 mmol/L (98-107) Carbon Dioxide Level 27 mmol/L (21-32) Anion Gap 15 (6-14) Blood Urea Nitrogen 71 mg/dL (8-26) Creatinine 6.2 mg/dL (0.7-1.3) Estimated GFR (Cockcroft-Gault) 8.9 Glucose Level 323 mg/dL (70-99) Calcium Level 8.6 mg/dL (8.5-10.1) Test 04/09/22 16:48 04/09/22 19:40 Glucose (Fingerstick) 174 mg/dL (70-99) 308 mg/dL (70-99) Laboratory Tests Test 04/09/22 16:48 04/09/22 19:40 Glucose (Fingerstick) 174 mg/dL (70-99) 308 mg/dL (70-99) Assessment/Plan Assessment/Plan 1. ESRD on HD, need for dialysis access 2. MSSA bacteremia, clearing likely catheter related 3. DM 4. Afib on eliquis, chronic 5. COVID positive, asymptomatic Please continue to hold eliquis Vein mapping suggests usable basilic vs cephalic vein in right arm. Would avoid left arm given presence of AICD/PM. although patient right handed. COVID precautions will stop on 04/12. Will look to schedule for AV access creation in right arm on 04/12/22 if OR availability. Limb alert to right arm. Would not place AV graft given recent bacteremia. If basilic used for AV creation then he would need second stage transposition. Explained need for 6-8 weeks of maturation and expected risks with dialysis access creation. Plan for catheter removal/exchange today given bacteremia. Ultrasound suggested no evidence of DVT in right arm/catheter related thrombosis. MARIBEL GUTIREREZ MD April 10, 2022 08:28
[2022-04-10] MEDS ORDERED: LIDOCAINE 1%/EPI 1:100,000 20 ML VIAL. ONE (08:30)
[2022-04-10] MEDS: APIXABAN 2.5 MG TABLET. PO SCH (09:00)
--- NOTE | 2022-04-10 09:00 | PDOC ---
DATE OF SERVICE DATE: 04/10/22 TIME: 09:00 SUBJECTIVE ROS No complaints Denies SOB , No N/V OBJECTIVE Vital Signs Vital Signs Date Time Temp Pulse Resp B/P (MAP) Pulse Ox O2 Delivery O2 Flow Rate FiO2 04/10/22 07:48 Room Air 04/10/22 07:00 98.6 65 18 104/53 (70) 94 98.6 04/09/22 18:36 2.0 I & 0 Intake and Output 04/10/22 07:00 Intake Total 450 ml Output Total 0 ml Balance 450 ml Intake Oral 450 ml Output Urine Total 0 ml PHYSICAL EXAM Physical Exam GENERAL: not in distress. HEENT: Both pupils are round and reacting. No conjunctival lesion, OM moist NECK: Supple, LUNGS: Clear.Non labored HEART: S1, S2, regular. ABDOMEN: Soft, nontender, no organomegaly. EXTREMITIES: No edema, cyanosis. SKIN: Unremarkable. NEURO No focal neurologic deficit. DIAGNOSIS/ASSESSMENT Assessment & Plan ESRD on HD TTS - states at [facility] , he is a . No indication for dialysis today . Re-evaluate tomorrow after revieweing labs as currently doesnt have any access Access Tunneled HDC - dced on 04/09 - 12/19 bacteremia. . Will need new Catheter after approved by ID. Discussed with Primary and nursing Consulted Vascular- Vein mapping done, Plan for AV access placement tentatively on Friday Blood culture positive from [place], gram-positive cocci.// MSSA- Per ID recommendations, HDC removed . Hold off on placing new HDC . Dw Patient and RN Severe neck pain, CT cervical spine on 04/08. COVID-19 positive. Cardiomyopathy - ischemic by history, s/p AICD [facility] paced rhythm with underlying afib HTN - low BP since DM2 Chronic AFIB - rate controlled with pacer AICD CAD - prior PCI. Sees Dr. Sena through the [facility] UTI - morganella UTI in January 2022, recurred currently COMMENT/RELEVANT DATA Meds Current Medications Medications (Trade) Dose Ordered Sig/Mariza Start Time Stop Time Status Last Admin Dose Admin Acetaminophen (Tylenol) 650 mg PRN Q6HRS PRN 04/02/22 21:00 04/03/22 22:45 650 MG Acetaminophen/ Hydrocodone Bitart (Lortab 5/325) 1 tab PRN Q6HRS PRN 04/02/22 21:00 04/09/22 20:44 1 TAB Albumin Human 200 ml @ 200 mls/hr 1X PRN PRN 04/09/22 08:15 04/09/22 14:14 DC Apixaban (Eliquis) 2.5 mg BID 04/02/22 21:30 04/08/22 21:42 2.5 MG Ascorbic Acid (Vitamin C) 500 mg DAILY 04/03/22 09:00 04/08/22 07:56 500 MG Atorvastatin Calcium (Lipitor) 80 mg QHS 04/02/22 21:30 04/09/22 20:43 80 MG Benzocaine (Hurricaine One) 2 spray 1X ONCE 04/09/22 10:15 04/09/22 10:16 DC Cefazolin Sodium (Ancef) 1 gm Q12H 04/07/22 15:00 04/09/22 21:21 1 GM Ceftriaxone Sodium (Rocephin) 2 gm Q24H 04/03/22 17:00 04/07/22 14:53 DC 04/06/22 17:03 2 GM Cetirizine HCl (ZyrTEC) 10 mg DAILY 04/03/22 09:00 04/09/22 13:24 10 MG Dexamethasone (Decadron) 6 mg DAILYWBKFT 04/07/22 08:00 04/08/22 11:02 DC 04/08/22 07:56 6 MG Dextrose (Dextrose 50%-Water Syringe) 12.5 gm PRN Q15MIN PRN 04/02/22 21:00 Docusate Sodium (Colace) 100 mg BID 04/02/22 21:30 04/09/22 20:43 100 MG Epoetin Curt (PROCRIT for DIALYSIS PTS) 20,000 unit 1X ONCE 04/03/22 21:00 04/03/22 21:01 DC 04/03/22 20:59 20,000 UNIT Fentanyl Citrate (Fentanyl 2ml Vial) 25 mcg PRN Q3HRS PRN 04/02/22 21:00 Gabapentin (Neurontin) 300 mg HS 04/02/22 21:30 04/09/22 20:44 300 MG Guaifenesin (Robitussin Dm) 10 ml PRN Q6HRS PRN 04/02/22 21:00 04/06/22 15:35 10 ML Heparin Sodium (Porcine) (Heparin Sodium) 5,000 unit Q8HRS 04/02/22 22:00 04/02/22 21:19 DC Hydralazine HCl (Apresoline Inj) 10 mg PRN Q4HRS PRN 04/02/22 21:00 Info (PHARMACY MONITORING -- do not chart) 1 each PRN DAILY PRN 04/09/22 08:15 Insulin Glargine (Lantus Syringe) 22 unit QHS 04/02/22 21:30 04/09/22 20:46 22 UNIT Insulin Human Lispro (HumaLOG) 14 units 1X ONCE 04/08/22 08:15 04/08/22 08:16 DC 04/08/22 08:23 14 UNITS Lactobacillus Rhamnosus (Culturelle) 1 cap BID 04/04/22 09:00 04/09/22 20:43 1 CAP Lidocaine HCl (Lidocaine Pf 2% Vial) 5 ml STK-MED ONCE 04/09/22 13:52 04/09/22 13:52 DC Lidocaine HCl (Viscous Lidocaine) 15 ml 1X ONCE 04/09/22 10:15 04/09/22 10:16 DC Lidocaine HCl (Xylocaine 2% Topical 30gm Tube) 1 jason 1X ONCE 04/09/22 10:15 04/09/22 10:16 DC Lidocaine/ Epinephrine (LIDOCAINE 1%-EPI 1:100,000 Multi-Dose) 20 ml STK-MED ONCE 04/10/22 08:30 04/10/22 08:30 DC Metoprolol Tartrate (Lopressor Vial) 5 mg PRN Q5MIN PRN 04/09/22 11:45 Nitroglycerin (Nitrostat) 0.4 mg PRN Q5MIN PRN 04/02/22 21:00 Ondansetron HCl (Zofran Odt) 4 mg PRN Q4HRS PRN 04/02/22 21:00 Ondansetron HCl (Zofran) 4 mg PRN Q4HRS PRN 04/02/22 21:00 Pantoprazole Sodium (Protonix) 40 mg DAILYAC 04/03/22 07:30 04/08/22 07:56 40 MG Phenol (Chloraseptic) 1 spray PRN Q2HR PRN 04/06/22 15:45 Phenylephrine HCl (PHENYLEPHRINE in 0.9% NACL PF) 1 mg STK-MED ONCE 04/09/22 13:52 04/09/22 13:52 DC Propofol (Diprivan) 200 mg STK-MED ONCE 04/09/22 13:52 04/09/22 13:52 DC Sodium Chloride 1,000 ml @ 400 mls/hr Q2H30M PRN 04/04/22 06:45 04/04/22 18:44 DC Sodium Chloride (Normal Saline Flush) 10 ml 1X PRN PRN 04/03/22 10:00 04/04/22 09:59 DC Thiamine Mononitrate (Vitamin B-1) 100 mg DAILY 04/03/22 09:00 04/08/22 07:56 100 MG Tramadol HCl (Ultram) 50 mg PRN Q6HRS PRN 04/02/22 21:00 04/09/22 17:57 50 MG Vancomycin HCl (Vanco Per Pharmacy) 1 each PRN DAILY PRN 04/04/22 13:30 04/07/22 15:03 DC 04/06/22 11:58 1 EACH Vancomycin HCl (Vancomycin Random Level) 1 each 1X ONCE 04/06/22 05:00 04/06/22 05:01 DC 04/06/22 05:00 1 EACH Vancomycin HCl 500 mg/Dextrose 500 ml @ 500 mls/hr [id number] 04/09/22 16:00 04/07/22 14:53 DC Vancomycin HCl 2 gm/Sodium Chloride 500 ml @ 250 mls/hr 1X ONCE 04/04/22 14:00 04/04/22 15:59 DC 04/04/22 15:32 250 MLS/HR Zinc Sulfate (Orazinc) 220 mg DAILY 04/03/22 09:00 04/08/22 07:56 220 MG Lab Laboratory Tests Test 04/09/22 16:48 04/09/22 19:40 04/10/22 08:16 Glucose (Fingerstick) 174 mg/dL (70-99) 308 mg/dL (70-99) 187 mg/dL (70-99) Results All relevant outside records, renal labs, imaging studies, telemetry/EKG's were reviewed. Justicifation of Admission Dx: Justifications for Admission: Justification of Admission Dx: N/A RIVER BRINK MD April 10, 2022 09:00
[2022-04-10] MEDS: THIAMINE 100 MG TABLET. PO SCH (09:12)
[2022-04-10] MEDS: HYDROcodone/APAP 5/325MG 1 TAB TABLET PO PRN ×3 (09:12→20:53)
[2022-04-10] MEDS: ZINC SULFATE 220 MG CAPSULE. PO SCH (09:12)
[2022-04-10] MEDS: DOCUSATE SODIUM 100 MG CAPSULE. PO SCH ×2 (09:12→20:53)
[2022-04-10] MEDS: ceFAZolin SODIUM IV Push 1 GM VIAL. IVP SCH ×2 (09:12→20:53)
[2022-04-10] MEDS: PANTOPRAZOLE 40 MG TABLET.DR. PO SCH (09:12)
[2022-04-10] MEDS: ASCORBIC ACID 500 MG TABLET PO SCH (09:12)
[2022-04-10] MEDS: LACTOBACILLUS RHAMNOSUS GG 1 CAPSULE. PO SCH ×2 (09:12→20:53)
[2022-04-10] MEDS: CETIRIZINE HCL 10 MG TABLET. PO SCH (09:12)
--- NOTE | 2022-04-10 09:13 | RAD ---
INDICATION: Reason: concern for dvt? / Spl. Instructions: / History: . Right arm pain and swelling. COMPARISON: None. TECHNIQUE: Grayscale, color and doppler ultrasound images were obtained of the right upper extremity venous vasculature. RIGHT: No thrombus identified in the internal jugular, subclavian, axillary, brachial, basilic, cephalic, ra dial or ulnar veins. IMPRESSION: * No thrombus identified in deep venous system of right upper extremity. Electronically signed by: Nixon Mitchell MD (04/10/2022 9:11 AM) [id number]
[2022-04-10] MEDS ORDERED: LIDOCAINE 1%/EPI 1:100,000 20 ML VIAL. INJ ONE (09:30)
[2022-04-10 11:57] VITALS: BP 125/54
--- NOTE | 2022-04-10 12:17 | PDOC ---
[employer] PROGRESS NOTE Date of Service DOS: DATE: 04/10/22 TIME: 12:16 Chief Complaint Chief Complaint COVID 19 - supportive care. Monitor O2 saturations, maintain > 89%. If hypoxic will initiate decadron and remdesivir therapy; Staph aureus bacteremia - recurrently positive, was positive at [facility] Weakness - likely related to COVID 19, also with some uremia Myalgias - viral syndrome ESRD - with uremia. Consult nephrology for missed dialysis session. Started dialysis this past November 2021, has RIJ tunneled dialysis catheter Cardiomyopathy - ischemic by history, s/p AICD [facility] paced rhythm with underlying afib HTN - low BP since HLD - statin DM2 - basal bolus plus insulin while inpatient Chronic AFIB - rate controlled with pacer AICD CAD - prior PCI. Sees Dr. Sena through the [facility] UTI - morganella UTI in January 2022, recurred currently Severe malnutrition History of Present Illness History of Present Illness 04/05: Evaluate examined at bedside. A bit lethargic but improving. Nephrology infectious disease recommendations reviewed. Waiting on [place] culture results still. Continue IV antibiotics. Dialysis tomorrow. Therapy modalities. 04/04: Patient evaluated undergoing dialysis. He is a bit lethargic but no major complaints. Continue current. Therapy evaluation for possible placement. Discussed with bedside RN. Endocrinology Nurse recommendations reviewed. 04/03: Patient afebrile, resting comfortably on room air. Denies any shortness of breath. Reports some muscle aches in his neck, shoulders, and proximal legs. States he has not had dialysis and few days due to his weakness. Potassium 4.1; I doubt there is any urgent need for dialysis at this time, but will wait for nephrology impression. 04/08: Urine culture from [facility] with greater than 100,000 CFU of Morganella Heron high sensitive to Rocephin. Blood culture 1 out of 4 bottles positive for staph aureus MSSA from [facility]. He is able to eat today not hypoxic. Feeling little stronger. 04/09: Repeat 523 blood cultures no growth to date. Tolerated dialysis well is little tired sore throat and neck pain are improving. He has been made n.p.o. for ADELINA and will have his tunneled dialysis catheter removed after he is been off his Eliquis an additional day. Feeling weaker 04/10: Overall feeling improved Eliquis on hold removed his tunneled dialysis catheter still eating treatment for UTI and staph bacteremia seen by vascular surgery for AV fistula creation tentatively planned for 04/12/2022. Still feeling pretty weak Vitals/I&O Vitals/I&O: Vital Signs Date Time Temp Pulse Resp B/P (MAP) Pulse Ox O2 Delivery O2 Flow Rate FiO2 04/10/22 11:57 98.8 82 18 125/54 (77) 95 Room Air 98.8 04/10/22 09:46 2.0 I & O 04/09/22 04/09/22 04/10/22 15:00 23:00 07:00 Intake Total 0 ml 250 ml 200 ml Output Total 0 ml Balance 0 ml 250 ml 200 ml Physical Exam Physical Exam: GENERAL: Alert, oriented gentleman, not in distress. VITAL SIGNS: stable HEENT: Both pupils are round and reacting. No conjunctival lesion, no lesion in the mouth. NECK: Supple, no JVP, no lymphadenopathy. LUNGS: Clear. HEART: S1, S2, regular. ABDOMEN: Soft, nontender, no organomegaly. EXTREMITIES: No edema, cyanosis. SKIN: Unremarkable. MUSCULOSKELETAL: In particular, his neck is stiff, but it is difficult to evaluate since his muscles are very tight in the neck and the pain is in the middle of the neck as well as has radiation into the bilateral shoulders. NEUROLOGIC: The patient is alert, awake, and appropriate. No focal neurologic deficit. General: Alert, Oriented X3 Heart: Regular rate, Other (palpable radial and brachial pulses 2+ bilaterally. Normal allens test on right) Lungs: Clear Abdomen: Soft, No tenderness Extremities: No clubbing, No edema Skin: No rashes, No significant lesion Labs Labs: Laboratory Tests Test 04/09/22 16:48 04/09/22 19:40 04/10/22 08:16 04/10/22 11:28 Glucose (Fingerstick) 174 mg/dL (70-99) 308 mg/dL (70-99) 187 mg/dL (70-99) 220 mg/dL (70-99) Comment Review of Relevant I have reviewed the following items kate (where applicable) has been applied. Justifications for Admission General Conditions Poss hypotension?: Yes Justification for admission: Patient has hypotension (SBP < 90 mm Hg) which is not readily corrected by appropriate treatment within 12 to 24 hours. Poss Metaboilic Acidosis?: Yes Justification for admission: Patient has tachycardia (> 100 beats per minute) or hypotension (SBP < 90 mm Hg) leading to inadequate systemic perfusion as indicated by metabolic acidosis with arterial pH of less than 7.35. Other Justification SHELIA OCASIO MD April 10, 2022 12:17
--- NOTE | 2022-04-10 12:18 | PDOC ---
SAIDA BOSTON NUCLEAR EQUIPMENT TEST ENGINEER 04/10/22 1218: CARDIO Progress Notes Date and Time Date of Service 04/10/2022 Time of Evaluation 1200 Subjective Subjective: No Chest Pain, No shortness of breath, No Palpitations Vitals Vitals Vital Signs Date Time Temp Pulse Resp B/P (MAP) Pulse Ox O2 Delivery O2 Flow Rate FiO2 04/10/22 11:57 98.8 82 18 125/54 (77) 95 Room Air 98.8 04/10/22 09:46 2.0 Weight Weight [ ] Input and Output Intake and Output Intake and Output 04/10/22 07:00 Intake Total 450 ml Output Total 0 ml Balance 450 ml Intake Oral 450 ml Output Urine Total 0 ml Laboratory Labs Laboratory Tests Test 04/09/22 16:48 04/09/22 19:40 04/10/22 08:16 04/10/22 11:28 Glucose (Fingerstick) 174 mg/dL (70-99) 308 mg/dL (70-99) 187 mg/dL (70-99) 220 mg/dL (70-99) Microbiology Micro Microbiology 04/08/22 Blood Culture - Preliminary, Resulted NO GROWTH AFTER 1 DAY Review of Systems Constitutional: yes: weakness, alert Ears/Nose/Throat: Yes: no symptom reported Eyes: Yes: no symptom reported Pulmonary: Yes dyspnea Cardiovascular: Yes no symptom reported Gastrointestional: Yes: no symptom reported Genitourinary: Yes: no symptom reported Musculoskeletal: Yes: no symptom reported Skin: Yes no symptom reported Psychiatric/Neurological: Yes: no symptom reported Physical Exam HEENT: Neck Supple W Full Motion Chest: Symmetric LUNGS: Other (diminished bases) Heart: irregularly irregular (AFIB) Abdomen: Soft N/T Extremities: No Calf Tenderness Neurology: alert, oriented, follow commands Assessment Assessment 1. Bacteremia: MSSA. ADELINA revealed no endocarditis EF is 20% with small PFO noted on Doppler imaging, agitated contrast saline was not performed on this study. 2. ESRD 3. AICD in situ: [facility] [facility]. intermittent pacing with underlying AFIB 4. Chronic AFIB: rate controlled 5. Hypertension: controlled 6. Hyperlipidemia 7. DM2 8. CAD: past PCI/stents clinically stable 9. Covid-19: vaccinated 10. Chronic systolic CHF: compensated 11. Cardiomyopathy: EF at 20% 12. Valvular insufficiency; mod MR/TR Recommendations 1. Pending dialysis fistula placement and HD cath replacement on Friday 2. Continue secondary prevention measures. 3. Fluid off loading per HD 4. Noted before with no rate controlling agents on his regimen, unclear why uncless issues with orthostasis which was noted from previous admission. BB PRN for now if rate becomes an issue. Continue eliquis for stroke prevention and would qualify for full dose eliquis rather than 2.5 mg bid. Holding eliquis for pending surgery. Start ASA in the meantime. Justicifation of Admission Dx: Justifications for Admission: Justification of Admission Dx: N/A JESSICA SANCHEZ MD 04/10/22 1841: CARDIO Progress Notes Assessment Assessment Patient seen and examined. Agree with SPECIAL EDUCATION TUTOR's assessment and plan Perm atrial fib rate controlled CAD clinically stable Chr systolic HF compensated ADELINA showed EF 20% without any vegetations or thrombus Continue fluid removal with HD per nephrology team SAIDA BOSTON APRN April 10, 2022 12:18 JESSICA SANCHEZ MD April 10, 2022 18:41
--- NOTE | 2022-04-10 12:28 | RAD ---
US VENOUS MAPPING BILAT History: Reason: dialysis access / Spl. Instructions: / History: Comparison: None. Discussion: Multiple longitudinal and transverse high resolution real-time images of the superficial venous syste m of bilateral upper extremity were obtained. Right cephalic vein: Measures 2.5 mm tapering to 1.4 mm. No occlusion. Right basilic vein: Measures 4.1 mm tapering to 2.5 mm. No occlusion. Left cephalic vein: Measures 1.9 mm proximally to 3.0 mm distally. No occlusion. Left basilic vein: Measures 6.8 mm tapering to 2.4 mm. No occlusion. Impression: 1. Preoperative evaluation with measurements as described above. Electronically signed by: Baltazar Longoria DO (04/10/2022 12:25 PM) [id number]
--- NOTE | 2022-04-10 14:07 | PDOC ---
Infectious Disease Note Subjective Subjective pt is feeling good neck is better ROS ROS no n/v/d/fever Vital Sign Vital Signs Vital Signs Date Time Temp Pulse Resp B/P (MAP) Pulse Ox O2 Delivery O2 Flow Rate FiO2 04/10/22 11:57 98.8 82 18 125/54 (77) 95 Room Air 98.8 04/10/22 09:46 2.0 Physical Exam PHYSICAL EXAM GENERAL: Alert, oriented gentleman, not in distress. VITAL SIGNS: stable HEENT: Both pupils are round and reacting. No conjunctival lesion, no lesion in the mouth. NECK: Supple, no JVP, no lymphadenopathy. LUNGS: Clear. HEART: S1, S2, regular. ABDOMEN: Soft, nontender, no organomegaly. EXTREMITIES: No edema, cyanosis. SKIN: Unremarkable. MUSCULOSKELETAL: In particular, his neck is stiff, but it is difficult to evaluate since his muscles are very tight in the neck and the pain is in the middle of the neck as well as has radiation into the bilateral shoulders. NEUROLOGIC: The patient is alert, awake, and appropriate. No focal neurologic deficit. Labs Lab Laboratory Tests Test 04/09/22 16:48 04/09/22 19:40 04/10/22 08:16 04/10/22 11:28 Glucose (Fingerstick) 174 mg/dL (70-99) 308 mg/dL (70-99) 187 mg/dL (70-99) 220 mg/dL (70-99) Micro Microbiology 04/04/22 Blood Culture - Final, Complete Staphylococcus Aureus Objective Assessment IMPRESSION: 1. Blood culture positive from [place], gram-positive cocci.// MSSA 2. Severe neck pain, rule out diskitis. 3. End-stage renal disease, on hemodialysis. 4. COVID-19 positive. 5. Automatic implantable cardioverter-defibrillator in place. 6. Cardiomyopathy. Plan Plan of Care ct neck neg for infection cont antibiotics Repeat blood cultures in a.m. Awaiting culture results and medical records from [facility] Patient had bloodstream infection in the recent past. Discussed with nursing staff HD cath is out RAJESH Bland MD April 10, 2022 14:07
[2022-04-10 14:59] VITALS: BP 100/48
[2022-04-10] MEDS: ASPIRIN ENTERIC COATED 81 MG TABLET.DR. PO SCH (15:35)
[2022-04-10 18:38] VITALS: BP 119/50
[2022-04-10] MEDS: ATORVASTATIN CALCIUM 40 MG TABLET. PO SCH (20:53)
[2022-04-10] MEDS: GABAPENTIN 300 MG CAPSULE. PO SCH (20:53)
[2022-04-10] MEDS: INSULIN GLARGINE SYRINGE. SQ SCH (20:55)
[2022-04-10 23:00] VITALS: BP 101/45
[2022-04-11 03:00] VITALS: BP 118/67
[2022-04-11] MEDS: HYDROcodone/APAP 5/325MG 1 TAB TABLET PO PRN (04:07)
[2022-04-11] MEDS: PANTOPRAZOLE 40 MG TABLET.DR. PO SCH (04:08)
[2022-04-11 04:16] LABS: CALCIUM 8.1 mg/dL (8.5-10.1); CREATININE 5.6 mg/dL (0.7-1.3); GFR 10.1; POTASSIUM 4.3 mmol/L (3.5-5.1)
[2022-04-11 07:15] VITALS: BP 115/63
--- NOTE | 2022-04-11 08:52 | PDOC ---
[employer] PROGRESS NOTE Date of Service DOS: DATE: 04/11/22 TIME: 08:50 Chief Complaint Chief Complaint Staph aureus bacteremia - recurrently positive, was positive at [facility] Weakness - likely related to COVID 19, also with some uremia Myalgias - viral syndrome ESRD - with uremia. Consult nephrology for missed dialysis session. Started dialysis this past November 2021, has RIJ tunneled dialysis catheter Cardiomyopathy - ischemic by history, s/p AICD [facility] paced rhythm with underlying afib HTN - low BP since HLD - statin DM2 - basal bolus plus insulin while inpatient Chronic AFIB - rate controlled with pacer AICD CAD - prior PCI. Sees Dr. Sena through the [facility] UTI - morganella UTI in January 2022, recurred currently Severe malnutrition COVID 19 - supportive care. 04/12/22 will be 10 days, needs no treatment History of Present Illness History of Present Illness 04/05: Evaluate examined at bedside. A bit lethargic but improving. Nephrology infectious disease recommendations reviewed. Waiting on [place] culture results still. Continue IV antibiotics. Dialysis tomorrow. Therapy modalities. 04/04: Patient evaluated undergoing dialysis. He is a bit lethargic but no major complaints. Continue current. Therapy evaluation for possible placement. Discussed with bedside RN. Actuarial Mathematician recommendations reviewed. 04/03: Patient afebrile, resting comfortably on room air. Denies any shortness of breath. Reports some muscle aches in his neck, shoulders, and proximal legs. States he has not had dialysis and few days due to his weakness. Potassium 4.1; I doubt there is any urgent need for dialysis at this time, but will wait for nephrology impression. 04/08: Urine culture from [facility] with greater than 100,000 CFU of Morganella Heron high sensitive to Rocephin. Blood culture 1 out of 4 bottles positive for staph aureus MSSA from [facility]. He is able to eat today not hypoxic. Feeling little stronger. 04/09: Repeat 523 blood cultures no growth to date. Tolerated dialysis well is little tired sore throat and neck pain are improving. He has been made n.p.o. for ADELINA and will have his tunneled dialysis catheter removed after he is been off his Eliquis an additional day. Feeling weaker 04/10: Overall feeling improved Eliquis on hold removed his tunneled dialysis catheter still eating treatment for UTI and staph bacteremia seen by vascular surgery for AV fistula creation tentatively planned for 04/12/2022. Still feeling pretty weak 04/11: Having some right chest wall pain tunneled dialysis catheter removal site. Asking if he can temporarily have a higher dose of hydrocodone to relieve his pain better. Afebrile. Plan for n.p.o. after midnight for catheter and fistula Vitals/I&O Vitals/I&O: Vital Signs Date Time Temp Pulse Resp B/P (MAP) Pulse Ox O2 Delivery O2 Flow Rate FiO2 04/11/22 07:15 97.5 62 20 115/63 (80) 95 Room Air 97.5 04/10/22 16:08 2.0 I & O 04/10/22 04/10/22 04/11/22 15:00 23:00 07:00 Intake Total 180 ml 330 ml 300 ml Balance 180 ml 330 ml 300 ml Physical Exam Physical Exam: GENERAL: Alert, oriented gentleman, not in distress. VITAL SIGNS: stable HEENT: Both pupils are round and reacting. No conjunctival lesion, no lesion in the mouth. NECK: Supple, no JVP, no lymphadenopathy. LUNGS: Clear. HEART: S1, S2, regular. ABDOMEN: Soft, nontender, no organomegaly. EXTREMITIES: No edema, cyanosis. SKIN: Unremarkable. MUSCULOSKELETAL: In particular, his neck is stiff, but it is difficult to evaluate since his muscles are very tight in the neck and the pain is in the middle of the neck as well as has radiation into the bilateral shoulders. NEUROLOGIC: The patient is alert, awake, and appropriate. No focal neurologic deficit. General: Alert, Oriented X3 Heart: Regular rate, Other (palpable radial and brachial pulses 2+ bilaterally. Normal allens test on right) Lungs: Clear Abdomen: Soft, No tenderness Extremities: No clubbing, No edema Skin: No rashes, No significant lesion Labs Labs: Laboratory Tests Test 04/10/22 11:28 04/10/22 17:16 04/10/22 20:20 04/11/22 03:25 Glucose (Fingerstick) 220 mg/dL (70-99) 232 mg/dL (70-99) 217 mg/dL (70-99) Sodium Level 140 mmol/L (136-145) Potassium Level 4.3 mmol/L (3.5-5.1) Chloride Level 98 mmol/L (98-107) Carbon Dioxide Level 29 mmol/L (21-32) Anion Gap 13 (6-14) Blood Urea Nitrogen 73 mg/dL (8-26) Creatinine 5.6 mg/dL (0.7-1.3) Estimated GFR (Cockcroft-Gault) 10.1 Glucose Level 147 mg/dL (70-99) Calcium Level 8.1 mg/dL (8.5-10.1) Test 04/11/22 08:10 Glucose (Fingerstick) 230 mg/dL (70-99) Comment Review of Relevant I have reviewed the following items kate (where applicable) has been applied. Medications: Current Medications Medications (Trade) Dose Ordered Sig/Mariza Route PRN Reason Start Time Stop Time Status Last Admin Dose Admin Aspirin (Ecotrin) 81 mg DAILYWBKFT PO 04/10/22 13:00 04/10/22 15:35 Justifications for Admission General Conditions Poss hypotension?: Yes Justification for admission: Patient has hypotension (SBP < 90 mm Hg) which is not readily corrected by appropriate treatment within 12 to 24 hours. Poss Metaboilic Acidosis?: Yes Justification for admission: Patient has tachycardia (> 100 beats per minute) or hypotension (SBP < 90 mm Hg) leading to inadequate systemic perfusion as indicated by metabolic acidosis with arterial pH of less than 7.35. Other Justification SHELIA OCASIO MD April 11, 2022 08:52
[2022-04-11] MEDS: ASPIRIN ENTERIC COATED 81 MG TABLET.DR. PO SCH (09:30)
[2022-04-11] MEDS: CETIRIZINE HCL 10 MG TABLET. PO SCH (09:30)
[2022-04-11] MEDS: DOCUSATE SODIUM 100 MG CAPSULE. PO SCH ×2 (09:30→20:54)
[2022-04-11] MEDS: GABAPENTIN 300 MG CAPSULE. PO SCH (09:30)
[2022-04-11] MEDS: THIAMINE 100 MG TABLET. PO SCH (09:30)
[2022-04-11] MEDS: ASCORBIC ACID 500 MG TABLET PO SCH (09:30)
[2022-04-11] MEDS: ZINC SULFATE 220 MG CAPSULE. PO SCH (09:30)
[2022-04-11] MEDS: LACTOBACILLUS RHAMNOSUS GG 1 CAPSULE. PO SCH ×2 (09:30→20:54)
[2022-04-11] MEDS: INSULIN LISPRO 300 UNITS/3 ML VIAL. SQ SCH ×4 (09:33→20:50)
[2022-04-11] MEDS: ceFAZolin SODIUM IV Push 1 GM VIAL. IVP SCH ×2 (09:35→20:54)
[2022-04-11] MEDS: HYDROcodone/APAP 7.5/325MG 1 TAB TABLET PO PRN ×3 (10:01→22:23)
--- NOTE | 2022-04-11 10:42 | PDOC ---
DATE OF SERVICE DATE: 04/11/22 TIME: 10:41 SUBJECTIVE ROS No complaints Denies SOB , No N/V OBJECTIVE Vital Signs Vital Signs Date Time Temp Pulse Resp B/P (MAP) Pulse Ox O2 Delivery O2 Flow Rate FiO2 04/11/22 10:01 95 Room Air 2.0 04/11/22 07:15 97.5 62 20 115/63 (80) 97.5 I & 0 Intake and Output 04/11/22 07:00 Intake Total 810 ml Balance 810 ml Intake Oral 810 ml # Voids 1 # Bowel Movements 1 PHYSICAL EXAM Physical Exam GENERAL: not in distress. HEENT: Both pupils are round and reacting. No conjunctival lesion, OM moist NECK: Supple, LUNGS: Clear.Non labored HEART: S1, S2, regular. ABDOMEN: Soft, nontender, no organomegaly. EXTREMITIES: No edema, cyanosis. SKIN: Unremarkable. NEURO No focal neurologic deficit. DIAGNOSIS/ASSESSMENT Assessment & Plan ESRD on HD TTS at [facility] , he is a . currently doesnt have any access , K normal, Resp status stable, No Uremic symptoms or signs . Scheduled for TDC tomorrow, OKed by ID . Scgedule for HD tomorrow and Friday Access Tunneled HDC - dced on 04/09 - 12/19 bacteremia. . Consulted Vascular- , Plan for AV access placement on Friday Blood culture positive from [place], gram-positive cocci.// MSSA- Per ID recommendations, HDC removed . Negative blood culture from 04/08/2022. New HDC tomorrow Severe neck pain, CT cervical spine on 04/08. COVID-19 positive. Cardiomyopathy - ischemic by history, s/p AICD [facility] paced rhythm with underlying afib HTN - low BP since DM2 Chronic AFIB - rate controlled with pacer AICD CAD - prior PCI. Sees Dr. Sena through the [facility] UTI - morganella UTI in January 2022, recurred currently COMMENT/RELEVANT DATA Meds Current Medications Medications (Trade) Dose Ordered Sig/Mariza Start Time Stop Time Status Last Admin Dose Admin Acetaminophen (Tylenol) 650 mg PRN Q6HRS PRN 04/02/22 21:00 04/03/22 22:45 650 MG Acetaminophen/ Hydrocodone Bitart (Lortab 5/325) 1 tab PRN Q6HRS PRN 04/02/22 21:00 04/11/22 04:07 1 TAB Acetaminophen/ Hydrocodone Bitart (Lortab 7.5/325) 1 tab PRN Q6HRS PRN 04/11/22 09:00 04/11/22 10:01 1 TAB Albumin Human 200 ml @ 200 mls/hr 1X PRN PRN 04/09/22 08:15 04/09/22 14:14 DC Apixaban (Eliquis) 2.5 mg BID 04/02/22 21:30 04/10/22 12:17 DC 04/08/22 21:42 2.5 MG Ascorbic Acid (Vitamin C) 500 mg DAILY 04/03/22 09:00 04/11/22 09:30 500 MG Aspirin (Ecotrin) 81 mg DAILYWBKFT 04/10/22 13:00 04/11/22 09:30 81 MG Atorvastatin Calcium (Lipitor) 80 mg QHS 04/02/22 21:30 04/10/22 20:53 80 MG Benzocaine (Hurricaine One) 2 spray 1X ONCE 04/09/22 10:15 04/09/22 10:16 DC Cefazolin Sodium (Ancef) 1 gm Q12H 04/07/22 15:00 04/11/22 09:35 1 GM Cefazolin Sodium 1 gm/Sodium Chloride 500 ml @ 500 mls/hr 1X ONCE 04/12/22 06:00 04/12/22 06:59 Ceftriaxone Sodium (Rocephin) 2 gm Q24H 04/03/22 17:00 04/07/22 14:53 DC 04/06/22 17:03 2 GM Cetirizine HCl (ZyrTEC) 10 mg DAILY 04/03/22 09:00 04/11/22 09:30 10 MG Dexamethasone (Decadron) 6 mg DAILYWBKFT 04/07/22 08:00 04/08/22 11:02 DC 04/08/22 07:56 6 MG Dextrose (Dextrose 50%-Water Syringe) 12.5 gm PRN Q15MIN PRN 04/02/22 21:00 Docusate Sodium (Colace) 100 mg BID 04/02/22 21:30 04/11/22 09:30 100 MG Epoetin Curt (PROCRIT for DIALYSIS PTS) 20,000 unit 1X ONCE 04/03/22 21:00 04/03/22 21:01 DC 04/03/22 20:59 20,000 UNIT Fentanyl Citrate (Fentanyl 2ml Vial) 25 mcg PRN Q3HRS PRN 04/02/22 21:00 Gabapentin (Neurontin) 300 mg HS 04/02/22 21:30 04/11/22 09:30 300 MG Guaifenesin (Robitussin Dm) 10 ml PRN Q6HRS PRN 04/02/22 21:00 04/06/22 15:35 10 ML Heparin Sodium (Porcine) (Heparin Sodium) 5,000 unit Q8HRS 04/02/22 22:00 04/02/22 21:19 DC Heparin Sodium (Porcine) 5000 unit/Sodium Chloride 505 ml @ 505 mls/hr 1X ONCE 04/12/22 06:00 04/12/22 06:59 Hydralazine HCl (Apresoline Inj) 10 mg PRN Q4HRS PRN 04/02/22 21:00 Info (PHARMACY MONITORING -- do not chart) 1 each PRN DAILY PRN 04/09/22 08:15 Insulin Glargine (Lantus Syringe) 22 unit QHS 04/02/22 21:30 04/10/22 20:55 22 UNIT Insulin Human Lispro (HumaLOG) 14 units 1X ONCE 04/08/22 08:15 04/08/22 08:16 DC 04/08/22 08:23 14 UNITS Lactobacillus Rhamnosus (Culturelle) 1 cap BID 04/04/22 09:00 04/11/22 09:30 1 CAP Lidocaine HCl (Lidocaine Pf 2% Vial) 5 ml STK-MED ONCE 04/09/22 13:52 04/09/22 13:52 DC Lidocaine HCl (Viscous Lidocaine) 15 ml 1X ONCE 04/09/22 10:15 04/09/22 10:16 DC Lidocaine HCl (Xylocaine 2% Topical 30gm Tube) 1 jason 1X ONCE 04/09/22 10:15 04/09/22 10:16 DC Lidocaine/ Epinephrine (LIDOCAINE 1%-EPI 1:100,000 Multi-Dose) 20 ml 1X ONCE 04/10/22 09:30 04/10/22 09:32 DC Metoprolol Tartrate (Lopressor Vial) 5 mg PRN Q5MIN PRN 04/09/22 11:45 Nitroglycerin (Nitrostat) 0.4 mg PRN Q5MIN PRN 04/02/22 21:00 Ondansetron HCl (Zofran Odt) 4 mg PRN Q4HRS PRN 04/02/22 21:00 Ondansetron HCl (Zofran) 4 mg PRN Q4HRS PRN 04/02/22 21:00 Pantoprazole Sodium (Protonix) 40 mg DAILYAC 04/03/22 07:30 04/11/22 04:08 40 MG Phenol (Chloraseptic) 1 spray PRN Q2HR PRN 04/06/22 15:45 Phenylephrine HCl (PHENYLEPHRINE in 0.9% NACL PF) 1 mg STK-MED ONCE 04/09/22 13:52 04/09/22 13:52 DC Propofol (Diprivan) 200 mg STK-MED ONCE 04/09/22 13:52 04/09/22 13:52 DC Sodium Chloride 1,000 ml @ 400 mls/hr Q2H30M PRN 04/04/22 06:45 04/04/22 18:44 DC Sodium Chloride (Normal Saline Flush) 10 ml 1X PRN PRN 04/03/22 10:00 04/04/22 09:59 DC Thiamine Mononitrate (Vitamin B-1) 100 mg DAILY 04/03/22 09:00 04/11/22 09:30 100 MG Tramadol HCl (Ultram) 50 mg PRN Q6HRS PRN 04/02/22 21:00 04/09/22 17:57 50 MG Vancomycin HCl (Vanco Per Pharmacy) 1 each PRN DAILY PRN 04/04/22 13:30 04/07/22 15:03 DC 04/06/22 11:58 1 EACH Vancomycin HCl (Vancomycin Random Level) 1 each 1X ONCE 04/06/22 05:00 04/06/22 05:01 DC 04/06/22 05:00 1 EACH Vancomycin HCl 500 mg/Dextrose 500 ml @ 500 mls/hr [id number] 04/09/22 16:00 04/07/22 14:53 DC Vancomycin HCl 2 gm/Sodium Chloride 500 ml @ 250 mls/hr 1X ONCE 04/04/22 14:00 04/04/22 15:59 DC 5/19/22 15:32 250 MLS/HR Zinc Sulfate (Orazinc) 220 mg DAILY 04/03/22 09:00 04/11/22 09:30 220 MG Lab Laboratory Tests Test 04/10/22 11:28 04/10/22 17:16 04/10/22 20:20 04/11/22 03:25 Glucose (Fingerstick) 220 mg/dL (70-99) 232 mg/dL (70-99) 217 mg/dL (70-99) Sodium Level 140 mmol/L (136-145) Potassium Level 4.3 mmol/L (3.5-5.1) Chloride Level 98 mmol/L (98-107) Carbon Dioxide Level 29 mmol/L (21-32) Anion Gap 13 (6-14) Blood Urea Nitrogen 73 mg/dL (8-26) Creatinine 5.6 mg/dL (0.7-1.3) Estimated GFR (Cockcroft-Gault) 10.1 Glucose Level 147 mg/dL (70-99) Calcium Level 8.1 mg/dL (8.5-10.1) Test 04/11/22 08:10 Glucose (Fingerstick) 230 mg/dL (70-99) Results All relevant outside records, renal labs, imaging studies, telemetry/EKG's were reviewed. Justicifation of Admission Dx: Justifications for Admission: Justification of Admission Dx: N/A RIVER BRINK MD April 11, 2022 10:42
[2022-04-11 11:30] VITALS: BP 110/49
--- NOTE | 2022-04-11 11:39 | PDOC ---
SAIDA BOSTON PLASTICATOR 04/11/22 1139: CARDIO Progress Notes Date and Time Date of Service 04/11/2022 Time of Evaluation 1130 Subjective Subjective: No Chest Pain, No shortness of breath, No Palpitations Vitals Vitals Vital Signs Date Time Temp Pulse Resp B/P (MAP) Pulse Ox O2 Delivery O2 Flow Rate FiO2 04/11/22 10:01 95 Room Air 2.0 04/11/22 07:15 97.5 62 20 115/63 (80) 97.5 Weight Weight [ ] Input and Output Intake and Output Intake and Output 04/11/22 07:00 Intake Total 810 ml Balance 810 ml Intake Oral 810 ml # Voids 1 # Bowel Movements 1 Laboratory Labs Laboratory Tests Test 04/10/22 17:16 04/10/22 20:20 04/11/22 03:25 04/11/22 08:10 Glucose (Fingerstick) 232 mg/dL (70-99) 217 mg/dL (70-99) 230 mg/dL (70-99) Sodium Level 140 mmol/L (136-145) Potassium Level 4.3 mmol/L (3.5-5.1) Chloride Level 98 mmol/L (98-107) Carbon Dioxide Level 29 mmol/L (21-32) Anion Gap 13 (6-14) Blood Urea Nitrogen 73 mg/dL (8-26) Creatinine 5.6 mg/dL (0.7-1.3) Estimated GFR (Cockcroft-Gault) 10.1 Glucose Level 147 mg/dL (70-99) Calcium Level 8.1 mg/dL (8.5-10.1) Microbiology Micro Microbiology 04/10/22 Aerobic Culture - Preliminary, Resulted 04/08/22 Blood Culture - Preliminary, Resulted NO GROWTH AFTER 2 DAYS Review of Systems Constitutional: yes: weakness, alert Ears/Nose/Throat: Yes: no symptom reported Eyes: Yes: no symptom reported Pulmonary: Yes dyspnea Cardiovascular: Yes no symptom reported Gastrointestional: Yes: no symptom reported Genitourinary: Yes: no symptom reported Musculoskeletal: Yes: no symptom reported Skin: Yes no symptom reported Psychiatric/Neurological: Yes: no symptom reported Physical Exam HEENT: Neck Supple W Full Motion Chest: Symmetric LUNGS: Other (diminished bases) Heart: irregularly irregular (AFIB) Abdomen: Soft N/T Extremities: No Calf Tenderness Neurology: alert, oriented, follow commands Other Exams Discussed with branch billing payroll clerk Assessment 1. Bacteremia: MSSA. ADELINA revealed no endocarditis EF is 20% with small PFO noted on Doppler imaging, agitated contrast saline was not performed on this study. 2. ESRD 3. AICD in situ: [facility]. Star. intermittent pacing with underlying AFIB 4. Chronic AFIB: rate controlled with HR in the 40s at times with intermittent pacing 5. Hypertension: controlled 6. Hyperlipidemia 7. DM2 8. CAD: past PCI/stents clinically stable 9. Covid-19: vaccinated 10. Chronic systolic CHF: compensated 11. Cardiomyopathy: EF at 20% 12. Valvular insufficiency; mod MR/TR Recommendations 1. Pending dialysis fistula placement and HD cath replacement tomorrow 2. Continue secondary prevention measures. 3. Fluid off loading per HD 4. Noted before with no rate controlling agents on his regimen, unclear why unless issues with orthostasis which was noted from previous admission. BB PRN for now if rate becomes an issue. Continue eliquis for stroke prevention and would qualify for full dose eliquis rather than 2.5 mg bid. Holding eliquis for pending surgery. Start ASA in the meantime. Justicifation of Admission Dx: Justifications for Admission: Justification of Admission Dx: N/A JESSICA SANCHEZ MD 04/11/22 1546: CARDIO Progress Notes Assessment Assessment Patient seen and examined. Agree with CUSTOMER SERVICER's assessment and plan Perm atrial fib rate controlled CAD clinically stable Chr systolic HF compensated ADELINA showed EF 20% without any vegetations or thrombus Continue fluid removal with HD per nephrology team SAIDA BOSTON APRN April 11, 2022 11:39 JESSICA SANCHEZ MD April 11, 2022 15:46
--- NOTE | 2022-04-11 12:48 | PDOC ---
Infectious Disease Note Subjective Subjective pt is feeling good neck is better ROS ROS No nausea vomiting diarrhea fever chills shortness of breath Vital Sign Vital Signs Vital Signs Date Time Temp Pulse Resp B/P (MAP) Pulse Ox O2 Delivery O2 Flow Rate FiO2 04/11/22 12:29 96 Room Air 2.0 04/11/22 11:30 97.9 46 18 110/49 (69) 97.9 Physical Exam PHYSICAL EXAM GENERAL: Alert, oriented gentleman, not in distress. VITAL SIGNS: stable HEENT: Both pupils are round and reacting. No conjunctival lesion, no lesion in the mouth. NECK: Supple, no JVP, no lymphadenopathy. LUNGS: Clear. HEART: S1, S2, regular. ABDOMEN: Soft, nontender, no organomegaly. EXTREMITIES: No edema, cyanosis. SKIN: Unremarkable. MUSCULOSKELETAL: In particular, his neck is stiff, but it is difficult to evaluate since his muscles are very tight in the neck and the pain is in the middle of the neck as well as has radiation into the bilateral shoulders. NEUROLOGIC: The patient is alert, awake, and appropriate. No focal neurologic deficit. Labs Lab Laboratory Tests Test 04/10/22 17:16 04/10/22 20:20 04/11/22 03:25 04/11/22 08:10 Glucose (Fingerstick) 232 mg/dL (70-99) 217 mg/dL (70-99) 230 mg/dL (70-99) Sodium Level 140 mmol/L (136-145) Potassium Level 4.3 mmol/L (3.5-5.1) Chloride Level 98 mmol/L (98-107) Carbon Dioxide Level 29 mmol/L (21-32) Anion Gap 13 (6-14) Blood Urea Nitrogen 73 mg/dL (8-26) Creatinine 5.6 mg/dL (0.7-1.3) Estimated GFR (Cockcroft-Gault) 10.1 Glucose Level 147 mg/dL (70-99) Calcium Level 8.1 mg/dL (8.5-10.1) Test 04/11/22 12:15 Glucose (Fingerstick) 286 mg/dL (70-99) Micro Microbiology 04/04/22 Blood Culture - Final, Complete Staphylococcus Aureus Objective Assessment IMPRESSION: 1. Blood culture positive from [place], gram-positive cocci.// MSSA 2. Severe neck pain, rule out diskitis. 3. End-stage renal disease, on hemodialysis. 4. COVID-19 positive. 5. Automatic implantable cardioverter-defibrillator in place. 6. Cardiomyopathy. Plan Plan of Care ct neck neg for infection cont antibiotics Repeat blood cultures in a.m. Awaiting culture results and medical records from [facility] Patient had bloodstream infection in the recent past. Discussed with nursing staff HD cath is out Negative blood culture from 04/08/2022 ADELINA neg Continue cefazolin Fistula and hemodialysis catheter replacement tomorrow RAJESH SANCHEZ MD April 11, 2022 12:48
--- NOTE | 2022-04-11 13:57 | PDOC ---
Provider Note Date of Service: DATE: 04/11/22 TIME: 13:54 Provider Note Provider Note Vascular: Patient is in end-stage renal disease in need of dialysis access. He has had COVID recently, also had bacteremia however most recent blood cultures from 04/08 are negative. He is hemodynamically stable. We will plan for AV fistula creation in his right arm tomorrow at 0900 (has left side PM), we have previously discussed this with the patient and I discussed with the nurse today and the patient does not have any current questions. He currently does not have any dialysis access as his catheter was removed yesterday due to bacteremia. I talked with IR, they are planning for tunneled dialysis catheter placement tomorrow after surgery in the afternoon and he will also need to dialyze tomorrow afternoon after IR. I discussed this with the nurse who has discussed with the other providers and this does not seem to be a problem in regards to scheduling. Justicifation of Admission Dx: Justifications for Admission: Justification of Admission Dx: N/A ROOSEVELT GREGG April 11, 2022 13:57
--- NOTE | 2022-04-11 14:05 | NUR ---
SS following up with discharge planning. SS reviewed pt chart and discussed with pt RN. Pt is currently on room air. COVID19 positive. Pt has outpatient hemodialysis at [facility], ; fax [phone], Friday, , and Friday. Pt on IV Ancef. Pt getting new HD Cath/Fistula tomorrow. Pt accepted on services with [facility], ; fax [phone]. SS will continue to follow for discharge planning.
[2022-04-11 15:15] VITALS: BP 109/60
[2022-04-11 19:00] VITALS: BP 109/49
[2022-04-11] MEDS: ATORVASTATIN CALCIUM 40 MG TABLET. PO SCH (20:54)
[2022-04-11] MEDS: INSULIN GLARGINE SYRINGE. SQ SCH (21:00)
[2022-04-11] MEDS: traMADol 50 MG TABLET PO PRN (21:34)
[2022-04-11 22:30] VITALS: BP 126/54
[2022-04-12 03:00] VITALS: BP 123/60
[2022-04-12] MEDS: HYDROcodone/APAP 7.5/325MG 1 TAB TABLET PO PRN (04:23)
[2022-04-12 04:46] LABS: HEMOGLOBIN 11.5 g/dL (13.0-17.5); RED BLOOD COUNT 3.97 x10^6/uL (4.30-5.70); RED CELL DISTRIBUTION WIDTH 15.3 % (11.5-14.5); WHITE BLOOD COUNT 10.3 x10^3/uL (4.0-11.0)
[2022-04-12 05:36] LABS: CALCIUM 8.1 mg/dL (8.5-10.1); CREATININE 6.8 mg/dL (0.7-1.3); POTASSIUM 4.8 mmol/L (3.5-5.1)
[2022-04-12] MEDS ORDERED: fentaNYL PF VIAL 100 MCG/2 ML VIAL IVP PRN ×2 (06:00)
[2022-04-12] MEDS ORDERED: IV RINGERS,LACTATED 1000ML 1,000 ML IV SCH (06:00)
[2022-04-12] MEDS ORDERED: MORPHINE SULFATE 2 MG/ML INJ. IVP PRN (06:00)
[2022-04-12] MEDS ORDERED: HEPARIN SODIUM 5,000 UNIT in IV NORMAL SALINE 500ML BAG 500 ML IRR ONE (06:00)
[2022-04-12] MEDS ORDERED: HYDROmorphone 2 MG/ML INJ. IVP PRN (06:00)
[2022-04-12] MEDS ORDERED: PROCHLORPERAZINE 10 MG/2 ML VIAL. IVP PRN (06:00)
[2022-04-12 06:06] VITALS: BP 111/47
[2022-04-12] MEDS ORDERED: LIDOCAINE 1% Multi-Dose 20 ML VIAL. ONE ×2 (07:12)
[2022-04-12] MEDS ORDERED: SURGICEL FIBRILLAR 1X2 EACH. ONE (07:12)
[2022-04-12] MEDS ORDERED: PAPAVERINE 60 MG/2 ML VIAL. ONE (07:12)
[2022-04-12 07:30] VITALS: BP 125/66
[2022-04-12] MEDS: INSULIN LISPRO 300 UNITS/3 ML VIAL. SQ SCH ×4 (07:30→20:55)
[2022-04-12] MEDS: ASPIRIN ENTERIC COATED 81 MG TABLET.DR. PO SCH (08:00)
[2022-04-12] MEDS ORDERED: PROPOFOL 100 ML IV ONE ×2 (08:18→11:13)
[2022-04-12] MEDS ORDERED: VASOPRESSIN 20 UNIT/ML VIAL. ONE (08:18)
[2022-04-12] MEDS ORDERED: fentaNYL PF VIAL 250 MCG/5 ML VIAL ONE (08:26)
--- NOTE | 2022-04-12 08:26 | PDOC ---
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 patient understands and agrees to proceed. Understands may require more than one surgery. Will proceed with right upper extremity AV access creation today as planned. Surgery is not urgent or emergent. Patient to come off COVID precautions today in discussion with aboriginal community council member and Dr. Carrington admitting hospitalist. Justicifation of Admission Dx: Justifications for Admission: Justification of Admission Dx: N/A MARIBEL GUTIERREZ MD April 12, 2022 08:26
[2022-04-12] MEDS: PANTOPRAZOLE 40 MG TABLET.DR. PO SCH (08:40)
[2022-04-12] MEDS: CETIRIZINE HCL 10 MG TABLET. PO SCH (09:00)
[2022-04-12] MEDS: DOCUSATE SODIUM 100 MG CAPSULE. PO SCH ×2 (09:00→20:43)
[2022-04-12] MEDS: THIAMINE 100 MG TABLET. PO SCH (09:00)
[2022-04-12] MEDS: ZINC SULFATE 220 MG CAPSULE. PO SCH (09:00)
[2022-04-12] MEDS: ceFAZolin SODIUM IV Push 1 GM VIAL. IVP SCH ×2 (09:00→20:48)
[2022-04-12] MEDS: LACTOBACILLUS RHAMNOSUS GG 1 CAPSULE. PO SCH ×2 (09:00→20:43)
[2022-04-12] MEDS: ASCORBIC ACID 500 MG TABLET PO SCH (09:00)
[2022-04-12] MEDS ORDERED: MIDAZOLAM HCL/PF 2 MG/2 ML VIAL. ONE ×2 (09:18→13:16)
--- NOTE | 2022-04-12 09:31 | PDOC ---
DATE OF SERVICE DATE: 04/12/22 TIME: 09:27 SUBJECTIVE ROS No complaints Denies SOB , No N/V OBJECTIVE Vital Signs Vital Signs Date Time Temp Pulse Resp B/P (MAP) Pulse Ox O2 Delivery O2 Flow Rate FiO2 04/12/22 06:06 97.7 56 17 111/47 (68) 96 Room Air 97.7 04/11/22 22:53 2.0 I & 0 Intake and Output 04/12/22 07:00 Intake Total 650 ml Balance 650 ml Intake Oral 650 ml # Voids 3 PHYSICAL EXAM Physical Exam GENERAL: not in distress. HEENT: Both pupils are round and reacting. No conjunctival lesion, OM moist NECK: Supple, LUNGS: Clear.Non labored HEART: S1, S2, regular. ABDOMEN: Soft, nontender, no organomegaly. EXTREMITIES: No edema, cyanosis. SKIN: Unremarkable. NEURO No focal neurologic deficit. DIAGNOSIS/ASSESSMENT Assessment & Plan ESRD on HD TTS at [facility] , he is a . Last Dialysis was on Friday, Access Tunneled HDC - dced on 04/09 - 12/19 bacteremia. . scheduled to be replaced today - dialysis today and tomorrow . Discussed treatment plan with LOU Consulted Vascular- , Plan for AV access placement today Blood culture positive from [place], gram-positive cocci.// MSSA- Per ID recommendations, HDC removed . Negative blood culture from 04/08/2022. Severe neck pain, CT cervical spine on 04/08. COVID-19 positive. Cardiomyopathy - ischemic by history, s/p AICD [facility] paced rhythm with underlying afib HTN - low BP since DM2 Chronic AFIB - rate controlled with pacer AICD CAD - prior PCI. Sees Dr. Sena through the [facility] UTI - morganella UTI in January 2022, recurred currently COMMENT/RELEVANT DATA Meds Current Medications Medications (Trade) Dose Ordered Sig/Mariza Start Time Stop Time Status Last Admin Dose Admin Acetaminophen (Tylenol) 650 mg PRN Q6HRS PRN 04/02/22 21:00 04/03/22 22:45 650 MG Acetaminophen/ Hydrocodone Bitart (Lortab 5/325) 1 tab PRN Q6HRS PRN 04/02/22 21:00 04/11/22 04:07 1 TAB Acetaminophen/ Hydrocodone Bitart (Lortab 7.5/325) 1 tab PRN Q6HRS PRN 04/11/22 09:00 04/12/22 04:23 1 TAB Albumin Human 200 ml @ 200 mls/hr 1X PRN PRN 04/09/22 08:15 04/09/22 14:14 DC Apixaban (Eliquis) 2.5 mg BID 04/02/22 21:30 04/10/22 12:17 DC 04/08/22 21:42 2.5 MG Ascorbic Acid (Vitamin C) 500 mg DAILY 04/03/22 09:00 04/11/22 09:30 500 MG Aspirin (Ecotrin) 81 mg [id number] 04/10/22 13:00 04/11/22 09:30 81 MG Atorvastatin Calcium (Lipitor) 80 mg QHS 04/02/22 21:30 04/11/22 20:54 80 MG Benzocaine (Hurricaine One) 2 spray 1X ONCE 04/09/22 10:15 04/09/22 10:16 DC Cefazolin Sodium (Ancef) 1 gm Q12H 04/07/22 15:00 04/11/22 20:54 1 GM Cefazolin Sodium 1 gm/Sodium Chloride 500 ml @ 500 mls/hr 1X ONCE 04/12/22 06:00 04/12/22 06:59 DC Ceftriaxone Sodium (Rocephin) 2 gm Q24H 04/03/22 17:00 04/07/22 14:53 DC 04/06/22 17:03 2 GM Cellulose (Surgicel Fibrillar 1x2) 1 each STK-MED ONCE 04/12/22 07:12 04/12/22 07:12 DC Cetirizine HCl (ZyrTEC) 10 mg DAILY 04/03/22 09:00 04/11/22 09:30 10 MG Dexamethasone (Decadron) 6 mg DAILYWBKFT 04/07/22 08:00 04/08/22 11:02 DC 04/08/22 07:56 6 MG Dextrose (Dextrose 50%-Water Syringe) 12.5 gm PRN Q15MIN PRN 04/02/22 21:00 Docusate Sodium (Colace) 100 mg BID 04/02/22 21:30 04/12/22 09:00 100 MG Epoetin Curt (PROCRIT for DIALYSIS PTS) 20,000 unit 1X ONCE 04/03/22 21:00 04/03/22 21:01 DC 04/03/22 20:59 20,000 UNIT Fentanyl Citrate (Fentanyl 2ml Vial) 50 mcg PRN Q5MIN PRN 04/12/22 06:00 04/12/22 20:00 Fentanyl Citrate (Fentanyl 5ml Vial) 250 mcg STK-MED ONCE 04/12/22 08:26 04/12/22 08:27 DC Gabapentin (Neurontin) 300 mg HS 04/02/22 21:30 04/11/22 09:30 300 MG Guaifenesin (Robitussin Dm) 10 ml PRN Q6HRS PRN 04/02/22 21:00 04/06/22 15:35 10 ML Heparin Sodium (Porcine) (Heparin Sodium) 5,000 unit Q8HRS 04/02/22 22:00 04/02/22 21:19 DC Heparin Sodium (Porcine) 5000 unit/Sodium Chloride 505 ml @ 505 mls/hr 1X ONCE 04/12/22 06:00 04/12/22 06:59 DC Hydralazine HCl (Apresoline Inj) 10 mg PRN Q4HRS PRN 04/02/22 21:00 Hydromorphone HCl (Dilaudid) 0.5 mg PRN Q10MIN PRN 04/12/22 06:00 04/12/22 20:00 Info (PHARMACY MONITORING -- do not chart) 1 each PRN DAILY PRN 04/09/22 08:15 Insulin Glargine (Lantus Syringe) 22 unit QHS 04/02/22 21:30 04/10/22 20:55 22 UNIT Insulin Human Lispro (HumaLOG) 14 units 1X ONCE 04/08/22 08:15 04/08/22 08:16 DC 04/08/22 08:23 14 UNITS Lactobacillus Rhamnosus (Culturelle) 1 cap BID 04/04/22 09:00 04/11/22 20:54 1 CAP Lidocaine HCl (Lidocaine 1% 20ml Vial) 20 ml STK-MED ONCE 04/12/22 07:12 04/12/22 07:13 DC Lidocaine HCl (Lidocaine Pf 2% Vial) 5 ml STK-MED ONCE 04/09/22 13:52 04/09/22 13:52 DC Lidocaine HCl (Viscous Lidocaine) 15 ml 1X ONCE 04/09/22 10:15 04/09/22 10:16 DC Lidocaine HCl (Xylocaine 2% Topical 30gm Tube) 1 jason 1X ONCE 04/09/22 10:15 04/09/22 10:16 DC Lidocaine/ Epinephrine (LIDOCAINE 1%-EPI 1:100,000 Multi-Dose) 20 ml 1X ONCE 04/10/22 09:30 04/10/22 09:32 DC Metoprolol Tartrate (Lopressor Vial) 5 mg PRN Q5MIN PRN 04/09/22 11:45 Midazolam HCl (Versed) 2 mg STK-MED ONCE 04/12/22 09:18 04/12/22 09:18 DC Morphine Sulfate (Morphine Sulfate) 1 mg PRN Q10MIN PRN 04/12/22 06:00 04/12/22 20:00 Nitroglycerin (Nitrostat) 0.4 mg PRN Q5MIN PRN 04/02/22 21:00 Ondansetron HCl (Zofran Odt) 4 mg PRN Q4HRS PRN 04/02/22 21:00 Ondansetron HCl (Zofran) 4 mg PRN Q4HRS PRN 04/02/22 21:00 Pantoprazole Sodium (Protonix) 40 mg DAILYAC 04/03/22 07:30 04/12/22 08:40 40 MG Papaverine HCl 60 mg STK-MED ONCE 04/12/22 07:12 04/12/22 07:12 DC Phenol (Chloraseptic) 1 spray PRN Q2HR PRN 04/06/22 15:45 Phenylephrine HCl (PHENYLEPHRINE in 0.9% NACL PF) 1 mg STK-MED ONCE 04/09/22 13:52 04/09/22 13:52 DC Prochlorperazine Edisylate (Compazine) 5 mg PACU PRN PRN 04/12/22 06:00 04/12/22 20:00 Propofol 100 ml @ As Directed STK-MED ONCE 04/12/22 08:18 04/12/22 08:18 DC Propofol (Diprivan) 200 mg STK-MED ONCE 04/09/22 13:52 04/09/22 13:52 DC Ringer's Solution 1,000 ml @ 30 mls/hr Q24H 04/12/22 06:00 04/12/22 17:59 Sodium Chloride 1,000 ml @ 400 mls/hr Q2H30M PRN 04/04/22 06:45 04/04/22 18:44 DC Sodium Chloride (Normal Saline Flush) 10 ml 1X PRN PRN 04/03/22 10:00 04/04/22 09:59 DC Thiamine Mononitrate (Vitamin B-1) 100 mg DAILY 04/03/22 09:00 04/11/22 09:30 100 MG Tramadol HCl (Ultram) 50 mg PRN Q6HRS PRN 04/02/22 21:00 04/09/22 17:57 50 MG Vancomycin HCl (Vanco Per Pharmacy) 1 each PRN DAILY PRN 04/04/22 13:30 04/07/22 15:03 DC 04/06/22 11:58 1 EACH Vancomycin HCl (Vancomycin Random Level) 1 each 1X ONCE 04/06/22 05:00 04/06/22 05:01 DC 04/06/22 05:00 1 EACH Vancomycin HCl 500 mg/Dextrose 500 ml @ 500 mls/hr [id number] 04/09/22 16:00 04/07/22 14:53 DC Vancomycin HCl 2 gm/Sodium Chloride 500 ml @ 250 mls/hr 1X ONCE 04/04/22 14:00 04/04/22 15:59 DC 04/04/22 15:32 250 MLS/HR Vasopressin (Vasostrict) 20 unit STK-MED ONCE 04/12/22 08:18 04/12/22 08:18 DC Zinc Sulfate (Orazinc) 220 mg DAILY 04/03/22 09:00 04/11/22 09:30 220 MG Lab Laboratory Tests Test 04/11/22 12:15 04/11/22 17:39 04/11/22 20:14 04/12/22 04:30 Glucose (Fingerstick) 286 mg/dL (70-99) 153 mg/dL (70-99) 196 mg/dL (70-99) White Blood Count 10.3 x10^3/uL (4.0-11.0) Red Blood Count 3.97 x10^6/uL (4.30-5.70) Hemoglobin 11.5 g/dL (13.0-17.5) Hematocrit 35.0 % (39.0-53.0) Mean Corpuscular Volume 88 fL (79-100) Mean Corpuscular Hemoglobin 29 pg (25-35) Mean Corpuscular Hemoglobin Concent 33 g/dL (31-37) Red Cell Distribution Width 15.3 % (11.5-14.5) Platelet Count 249 x10^3/uL (140-400) Sodium Level 139 mmol/L (136-145) Potassium Level 4.8 mmol/L (3.5-5.1) Chloride Level 100 mmol/L (98-107) Carbon Dioxide Level 25 mmol/L (21-32) Anion Gap 14 (6-14) Blood Urea Nitrogen 90 mg/dL (8-26) Creatinine 6.8 mg/dL (0.7-1.3) Estimated GFR (Cockcroft-Gault) 8.0 Glucose Level 163 mg/dL (70-99) Calcium Level 8.1 mg/dL (8.5-10.1) Test 04/12/22 07:42 Glucose (Fingerstick) 150 mg/dL (70-99) Results All relevant outside records, renal labs, imaging studies, telemetry/EKG's were reviewed. Justicifation of Admission Dx: Justifications for Admission: Justification of Admission Dx: N/A RIVER BRINK MD April 12, 2022 09:31
[2022-04-12] MEDS ORDERED: PROTAMINE 50 MG/5 ML VIAL. IV ONE (09:33)
[2022-04-12] MEDS ORDERED: HEPARIN for IV BOLUS 10,000 UNIT/10 ML VIAL. ONE (09:33)
[2022-04-12] MEDS ORDERED: fentaNYL PF VIAL 100 MCG/2 ML VIAL ONE ×2 (11:05→13:16)
[2022-04-12] MEDS ORDERED: MORPHINE SULFATE 2 MG/ML INJ. ONE (11:05)
--- NOTE | 2022-04-12 11:12 | PDOC4 ---
OPERATIVE NOTE Date: Date: April 12, 2022 Pre-Op Diagnosis: 1. ESRD with need for hemodialysis access 2. Diabetes mellitus on insulin therapy Post-Op Diagnosis: Same Procedure Performed: 1. Right proximal radiobasilic AV fistula creation Surgeon: Jany West Anesthesia Type: MAC/local Blood Loss: 25cc Specimans Obtained: none Findings: Early radial bifurcation. the radial artery was calcified but patent. Primary anastamosis performed between basilic vein in upper forearm and radial artery. Will need transposition later to be used for dialysis. Complications: None Operative Note: Patient brought to operating room and positioned with right arm out. Ultrasound demonstrated high bifurcation of radial artery and basilic vein in upper forearm usable for fistula creation. Cephalic was too small to be used for fistula creation. Surgical timeout performed and antibiotics given. Anesthesia provided sedation throughout. Local anesthetic was infiltrated at planned incision. Transverse incision made below antecubital crease. Basilic vein was dissected free and any branches ligated with sufficient length dissected out for anastamosis with the radial artery. The radial artery was dissected free. It was calcified but with palpable pulse. 8000 U heparin was given. The vein was then divided peripherally after ligating the peripheral vein with sufficient length and spatulated for anastomosis. The arteryw as then clamped with bulldog spring clamps. Arteriotomy was then made on anteromedial wall of radial artery. End (vein) to side (artery) approximately 6mm anastamosis was then made between the radial artery and basilic vein with 6-0 prolene. Flushing maneuvers performed prior to completion. At completion there was good hemostasis. The radial pulse was palpable at the wrist with compression of the vein. There was a more pulsatile type thrill in the vein palpable in the low upper arm. The wound was then irrigated and hemostasis assured. Fibrillar was placed in wound. Protamine was given to reverse heparin. Skin then closed with 3-0 vicryl deep dermal and 4-0 monocryl subcuticular. Steri strips and gauze bandage then applied. patient then transferred to PACU in stable condition. JANY WEST MD April 12, 2022 11:12
--- NOTE | 2022-04-12 11:19 | NUR ---
Wound Care: Pt off unit for fistula placement and HD immediately following. Will Follow up 04/17/22
[2022-04-12] MEDS: HYDROcodone/APAP 5/325MG 1 TAB TABLET PO PRN ×2 (12:21→18:55)
--- NOTE | 2022-04-12 12:37 | PDOC ---
Infectious Disease Note Subjective Subjective pt is feeling good NO complaints ROS ROS no n/v/d/ Vital Sign Vital Signs Vital Signs Date Time Temp Pulse Resp B/P (MAP) Pulse Ox O2 Delivery O2 Flow Rate FiO2 04/12/22 12:21 16 04/12/22 11:35 98.0 75 112/48 96 Room Air 98.0 04/12/22 11:06 2.0 Physical Exam PHYSICAL EXAM GENERAL: Alert, oriented gentleman, not in distress. VITAL SIGNS: stable HEENT: Both pupils are round and reacting. No conjunctival lesion, no lesion in the mouth. NECK: Supple, no JVP, no lymphadenopathy. LUNGS: Clear. HEART: S1, S2, regular. ABDOMEN: Soft, nontender, no organomegaly. EXTREMITIES: No edema, cyanosis. SKIN: Unremarkable. MUSCULOSKELETAL: In particular, his neck is stiff, but it is difficult to evaluate since his muscles are very tight in the neck and the pain is in the middle of the neck as well as has radiation into the bilateral shoulders. NEUROLOGIC: The patient is alert, awake, and appropriate. No focal neurologic deficit. Labs Lab Laboratory Tests Test 04/11/22 17:39 04/11/22 20:14 04/12/22 04:30 04/12/22 07:42 Glucose (Fingerstick) 153 mg/dL (70-99) 196 mg/dL (70-99) 150 mg/dL (70-99) White Blood Count 10.3 x10^3/uL (4.0-11.0) Red Blood Count 3.97 x10^6/uL (4.30-5.70) Hemoglobin 11.5 g/dL (13.0-17.5) Hematocrit 35.0 % (39.0-53.0) Mean Corpuscular Volume 88 fL (79-100) Mean Corpuscular Hemoglobin 29 pg (25-35) Mean Corpuscular Hemoglobin Concent 33 g/dL (31-37) Red Cell Distribution Width 15.3 % (11.5-14.5) Platelet Count 249 x10^3/uL (140-400) Sodium Level 139 mmol/L (136-145) Potassium Level 4.8 mmol/L (3.5-5.1) Chloride Level 100 mmol/L (98-107) Carbon Dioxide Level 25 mmol/L (21-32) Anion Gap 14 (6-14) Blood Urea Nitrogen 90 mg/dL (8-26) Creatinine 6.8 mg/dL (0.7-1.3) Estimated GFR (Cockcroft-Gault) 8.0 Glucose Level 163 mg/dL (70-99) Calcium Level 8.1 mg/dL (8.5-10.1) Test 04/12/22 11:41 Glucose (Fingerstick) 166 mg/dL (70-99) Micro Microbiology 04/04/22 Blood Culture - Final, Complete Staphylococcus Aureus Objective Assessment IMPRESSION: 1. Blood culture positive from [place], gram-positive cocci.// MSSA,, 04/04 and out side at [place] 2. Severe neck pain, rule out diskitis. 3. End-stage renal disease, on hemodialysis. 4. COVID-19 positive. 5. Automatic implantable cardioverter-defibrillator in place. 6. Cardiomyopathy. Plan Plan of Care ct neck neg for infection cont antibiotics Repeat blood cultures in a.m. Discussed with nursing staff HD cath is out Negative blood culture from 04/08/2022 ADELINA neg Continue cefazolin Patient can be discharged after hemodialysis catheter to do cefazolin 2 g to a gram and 3 g postdialysis. Follow-up with me in 2 weeks Plan is to give total 6 weeks of IV and then oral chronic suppression since he has an AICD in place. Apparently there is another history of blood positive in November which we do not have that information available RAJESH SANCHEZ MD April 12, 2022 12:37
--- NOTE | 2022-04-12 13:14 | PDOC ---
[employer] PROGRESS NOTE Date of Service DOS: DATE: 04/12/22 TIME: 13:13 Chief Complaint Chief Complaint Staph aureus bacteremia - recurrently positive, was positive at [facility] Weakness - likely related to COVID 19, also with some uremia Myalgias - viral syndrome ESRD - with uremia. Consult nephrology for missed dialysis session. Started dialysis this past November 2021, has RIJ tunneled dialysis catheter Cardiomyopathy - ischemic by history, s/p AICD [facility] paced rhythm with underlying afib HTN - low BP since HLD - statin DM2 - basal bolus plus insulin while inpatient Chronic AFIB - rate controlled with pacer AICD CAD - prior PCI. Sees Dr. Sena through the [facility] UTI - morganella UTI in January 2022, recurred currently Severe malnutrition COVID 19 - supportive care. 04/12/22 will be 10 days, needs no treatment History of Present Illness History of Present Illness 04/05: Evaluate examined at bedside. A bit lethargic but improving. Nephrology infectious disease recommendations reviewed. Waiting on OR culture results still. Continue IV antibiotics. Dialysis tomorrow. Therapy modalities. 04/04: Patient evaluated undergoing dialysis. He is a bit lethargic but no major complaints. Continue current. Therapy evaluation for possible placement. Discussed with bedside RN. Flume Ride Operator recommendations reviewed. 04/03: Patient afebrile, resting comfortably on room air. Denies any shortness of breath. Reports some muscle aches in his neck, shoulders, and proximal legs. States he has not had dialysis and few days due to his weakness. Potassium 4.1; I doubt there is any urgent need for dialysis at this time, but will wait for nephrology impression. 04/08: Urine culture from [facility] with greater than 100,000 CFU of Morganella Heron high sensitive to Rocephin. Blood culture 1 out of 4 bottles positive for staph aureus MSSA from [facility]. He is able to eat today not hypoxic. Feeling little stronger. 04/09: Repeat 523 blood cultures no growth to date. Tolerated dialysis well is little tired sore throat and neck pain are improving. He has been made n.p.o. for ADELINA and will have his tunneled dialysis catheter removed after he is been off his Eliquis an additional day. Feeling weaker 04/10: Overall feeling improved Eliquis on hold removed his tunneled dialysis catheter still eating treatment for UTI and staph bacteremia seen by vascular surgery for AV fistula creation tentatively planned for 04/12/2022. Still feeling pretty weak 04/11: Having some right chest wall pain tunneled dialysis catheter removal site. Asking if he can temporarily have a higher dose of hydrocodone to relieve his pain better. Afebrile. Plan for n.p.o. after midnight for catheter and fistula 04/12: Seen and examined briefly after his right AV fistula surgery and right tunneled HD catheter placement on his way to dialysis. Catheter tip culture results with no growth. We will be planning to do 2 g Friday 2 g and 3 g Friday of cefazolin for the next 6 weeks and follow-up outpatient with ID will have to be on long-term suppressive antibiotic therapy. Discussed with nephrology and infectious disease. Vitals/I&O Vitals/I&O: Vital Signs Date Time Temp Pulse Resp B/P (MAP) Pulse Ox O2 Delivery O2 Flow Rate FiO2 04/12/22 12:21 16 04/12/22 11:35 98.0 75 112/48 96 Room Air 98.0 04/12/22 11:06 2.0 I & O 04/11/22 04/11/22 04/12/22 15:00 23:00 07:00 Intake Total 240 ml 310 ml 100 ml Balance 240 ml 310 ml 100 ml Physical Exam Physical Exam: GENERAL: Alert, oriented gentleman, not in distress. VITAL SIGNS: stable HEENT: Both pupils are round and reacting. No conjunctival lesion, no lesion in the mouth. NECK: Supple, no JVP, no lymphadenopathy. LUNGS: Clear. HEART: S1, S2, regular. ABDOMEN: Soft, nontender, no organomegaly. EXTREMITIES: No edema, cyanosis. SKIN: Unremarkable. MUSCULOSKELETAL: In particular, his neck is stiff, but it is difficult to evaluate since his muscles are very tight in the neck and the pain is in the middle of the neck as well as has radiation into the bilateral shoulders. NEUROLOGIC: The patient is alert, awake, and appropriate. No focal neurologic deficit. General: Alert, Oriented X3 Heart: Regular rate, Other (palpable radial and brachial pulses 2+ bilaterally. Normal allens test on right) Lungs: Clear Abdomen: Soft, No tenderness Extremities: No clubbing, No edema Skin: No rashes, No significant lesion Labs Labs: Laboratory Tests Test 04/11/22 17:39 04/11/22 20:14 04/12/22 04:30 04/12/22 07:42 Glucose (Fingerstick) 153 mg/dL (70-99) 196 mg/dL (70-99) 150 mg/dL (70-99) White Blood Count 10.3 x10^3/uL (4.0-11.0) Red Blood Count 3.97 x10^6/uL (4.30-5.70) Hemoglobin 11.5 g/dL (13.0-17.5) Hematocrit 35.0 % (39.0-53.0) Mean Corpuscular Volume 88 fL (79-100) Mean Corpuscular Hemoglobin 29 pg (25-35) Mean Corpuscular Hemoglobin Concent 33 g/dL (31-37) Red Cell Distribution Width 15.3 % (11.5-14.5) Platelet Count 249 x10^3/uL (140-400) Sodium Level 139 mmol/L (136-145) Potassium Level 4.8 mmol/L (3.5-5.1) Chloride Level 100 mmol/L (98-107) Carbon Dioxide Level 25 mmol/L (21-32) Anion Gap 14 (6-14) Blood Urea Nitrogen 90 mg/dL (8-26) Creatinine 6.8 mg/dL (0.7-1.3) Estimated GFR (Cockcroft-Gault) 8.0 Glucose Level 163 mg/dL (70-99) Calcium Level 8.1 mg/dL (8.5-10.1) Test 04/12/22 11:41 Glucose (Fingerstick) 166 mg/dL (70-99) Comment Review of Relevant I have reviewed the following items kate (where applicable) has been applied. Medications: Current Medications Medications (Trade) Dose Ordered Sig/Mariza Route PRN Reason Start Time Stop Time Status Last Admin Dose Admin Cefazolin Sodium 1 gm/Sodium Chloride 500 ml @ 500 mls/hr 1X ONCE IRR 04/12/22 06:00 04/12/22 06:59 DC 04/12/22 09:40 Heparin Sodium (Porcine) 5000 unit/Sodium Chloride 505 ml @ 505 mls/hr 1X ONCE IRR 04/12/22 06:00 04/12/22 06:59 DC 04/12/22 09:40 Lidocaine HCl (Lidocaine 1% 20ml Vial) 20 ml STK-MED ONCE .ROUTE 04/12/22 07:12 04/12/22 07:12 DC 04/12/22 09:40 Cellulose (Surgicel Fibrillar 1x2) 1 each STK-MED ONCE .ROUTE 04/12/22 07:12 04/12/22 07:12 DC 04/12/22 10:45 Justifications for Admission General Conditions Poss hypotension?: Yes Justification for admission: Patient has hypotension (SBP < 90 mm Hg) which is not readily corrected by appropriate treatment within 12 to 24 hours. Poss Metaboilic Acidosis?: Yes Justification for admission: Patient has tachycardia (> 100 beats per minute) or hypotension (SBP < 90 mm Hg) leading to inadequate systemic perfusion as indicated by metabolic acidosis with arterial pH of less than 7.35. Other Justification SHELIA OCASIO MD April 12, 2022 13:14
[2022-04-12] MEDS ORDERED: LIDOCAINE 1%/EPI 1:100,000 20 ML VIAL. ONE (13:46)
[2022-04-12] MEDS ORDERED: fentaNYL PF VIAL 100 MCG/2 ML VIAL IV ONE (14:15)
[2022-04-12] MEDS ORDERED: LIDOCAINE 1%/EPI 1:100,000 20 ML VIAL. SQ ONE (14:15)
[2022-04-12] MEDS ORDERED: MIDAZOLAM HCL/PF 2 MG/2 ML VIAL. IV ONE (14:15)
[2022-04-12 14:38] VITALS: BP 107/56
[2022-04-12] MEDS ORDERED: DIALYSIS PATIENT. MC PRN ×2 (14:45)
[2022-04-12 18:59] VITALS: BP 125/53
--- NOTE | 2022-04-12 20:20 | NUR ---
No s/s of acute distress or pain; VSS. Pt complained of chronic neck pain. A&Ox4. Pt off floor for much of shift for AV fistula placement, catheter (tunnelled) insertion, and dialysis. Pt returned to floor near shift change and felt well. Tunnelled cath and AV fistula sites WDL.
[2022-04-12] MEDS: GABAPENTIN 300 MG CAPSULE. PO SCH (20:43)
[2022-04-12] MEDS: ATORVASTATIN CALCIUM 40 MG TABLET. PO SCH (20:43)
[2022-04-12] MEDS: INSULIN GLARGINE SYRINGE. SQ SCH (20:44)
[2022-04-12 23:00] VITALS: BP 116/54
[2022-04-13 02:00] VITALS: BP 106/75
[2022-04-13] MEDS: HYDROcodone/APAP 5/325MG 1 TAB TABLET PO PRN ×2 (02:40→13:26)
[2022-04-13 06:21] LABS: CALCIUM 7.8 mg/dL (8.5-10.1); CREATININE 4.3 mg/dL (0.7-1.3); GFR 13.6
[2022-04-13 07:00] VITALS: BP 104/70
[2022-04-13] MEDS ORDERED: IV NORMAL SALINE 1000ML BAG 1,000 ML IV PRN ×2 (07:45)
[2022-04-13] MEDS ORDERED: ALBUMIN HUMAN 25% 200 ML IV PRN (07:45)
[2022-04-13] MEDS ORDERED: DIALYSIS PATIENT. MC PRN ×2 (07:45)
[2022-04-13] MEDS: HYDROcodone/APAP 7.5/325MG 1 TAB TABLET PO PRN (07:50)
[2022-04-13] MEDS: PANTOPRAZOLE 40 MG TABLET.DR. PO SCH (08:13)
[2022-04-13] MEDS: INSULIN LISPRO 300 UNITS/3 ML VIAL. SQ SCH ×2 (08:16→11:30)
--- NOTE | 2022-04-13 09:37 | PDOC ---
PROGRESS NOTES Date of Service: DATE: 04/13/22 TIME: 09:37 Subjective Subjective Seen in hemodialysis unit, comfortable without any new complaints Objective Objective Vital Signs Date Time Temp Pulse Resp B/P (MAP) Pulse Ox O2 Delivery O2 Flow Rate FiO2 04/13/22 07:50 98 Room Air 04/13/22 07:00 80 104/70 (81) 04/13/22 03:10 16 04/13/22 02:00 98.5 98.5 04/12/22 14:38 2.0 Intake and Output 04/13/22 07:00 Intake Total 330 ml Output Total 25 ml Balance 305 ml Intake Oral 330 ml Estimated Blood Loss 25 ml # Bowel Movements 1 Physical Exam Abdomen: Soft, No tenderness Heart: Regular rate, Other (palpable radial and brachial pulses 2+ bilaterally. Normal allens test on right) Extremities: No clubbing, No edema General: Alert, Oriented X3 HEENT: Atraumatic, EOMI Lungs: Normal air movement MUSCULOSKELETAL: No joint tenderness, No deformity Neuro: Normal gait, Normal speech, Normal tone Psych/Mental Status: Mental status NL Skin: No rashes, No significant lesion Diagnosis RENAL FAILURE: ESRD Assessment Assessment 1. Bacteremia: MSSA. ADELINA revealed no endocarditis EF is 20% with small PFO noted on Doppler imaging, agitated contrast saline was not performed on this study. Continue antibiotics per ID team. 2. ESRD: s/p right AV fistula surgery and right tunneled hemodialysis catheter placement. Continue hemodialysis per nephrology team. 3. AICD in situ: [facility]. Star. intermittent pacing with underlying AFIB. Continue aspirin for now. We will consider resuming Eliquis as an outpatient. 4. Chronic AFIB: rate controlled with HR in the 40s at times with intermittent pacing 5. Hypertension: controlled 6. Hyperlipidemia: Continue statin therapy. 7. DM2: Treat per IM. 8. CAD: past PCI/stents clinically stable. Continue current secondary prevention measures. 9. Covid-19: vaccinated 10. Chronic systolic CHF: compensated 11. Cardiomyopathy: EF at 20% 12. Valvular insufficiency; mod MR/TR Comment Review of Relevant I have reviewed the following items kate (where applicable) has been applied. Labs Laboratory Tests Test 04/12/22 11:41 04/12/22 20:18 04/13/22 04:30 04/13/22 07:49 Glucose (Fingerstick) 166 mg/dL (70-99) 157 mg/dL (70-99) 168 mg/dL (70-99) Sodium Level 141 mmol/L (136-145) Potassium Level 5.0 mmol/L (3.5-5.1) Chloride Level 103 mmol/L (98-107) Carbon Dioxide Level 26 mmol/L (21-32) Anion Gap 12 (6-14) Blood Urea Nitrogen 53 mg/dL (8-26) Creatinine 4.3 mg/dL (0.7-1.3) Estimated GFR (Cockcroft-Gault) 13.6 Glucose Level 213 mg/dL (70-99) Calcium Level 7.8 mg/dL (8.5-10.1) Microbiology 04/10/22 Aerobic Culture - Final, Complete 04/08/22 Blood Culture - Preliminary, Resulted NO GROWTH AFTER 4 DAYS Medications Current Medications Albumin Human 200 ml @ 200 mls/hr 1X PRN PRN IV Hypotension; Start 04/13/22 at 07:45; Stop 04/13/22 at 13:44 Fentanyl Citrate (Fentanyl 2ml Vial) 100 mcg 1X ONCE IV Last administered on 04/12/22at 14:13; Start 04/12/22 at 14:15; Stop 04/12/22 at 14:16; Status DC Fentanyl Citrate (Fentanyl 2ml Vial) 100 mcg STK-MED ONCE .ROUTE ; Start 04/12/22 at 11:05; Stop 04/12/22 at 11:05; Status DC Fentanyl Citrate (Fentanyl 2ml Vial) 100 mcg STK-MED ONCE .ROUTE ; Start 04/12/22 at 13:16; Stop 04/12/22 at 13:17; Status DC Info (PHARMACY MONITORING -- do not chart) 1 each PRN DAILY PRN MC SEE COMMENTS; Start 04/12/22 at 14:45; Status Cancel Info (PHARMACY MONITORING -- do not chart) 1 each PRN DAILY PRN MC SEE COMM ENTS; Start 04/12/22 at 14:45; Status Cancel Info (PHARMACY MONITORING -- do not chart) 1 each PRN DAILY PRN MC SEE COMMENTS; Start 04/13/22 at 07:45 Info (PHARMACY MONITORING -- do not chart) 1 each PRN DAILY PRN MC SEE COMMENTS; Start 04/13/22 at 07:45; Status Cancel Lidocaine/ Epinephrine (LIDOCAINE 1%-EPI 1:100,000 Multi-Dose) 20 ml 1X ONCE SQ Last administered on 04/12/22at 14:15; Start 04/12/22 at 14:15; Stop 04/12/22 at 14:16; Status DC Lidocaine/ Epinephrine (LIDOCAINE 1%-EPI 1:100,000 Multi-Dose) 20 ml STK-MED ONCE .ROUTE ; Start 04/12/22 at 13:46; Stop 04/12/22 at 13:46; Status DC Midazolam HCl (Versed) 2 mg 1X ONCE IV Last administered on 04/12/22at 14:13; Start 04/12/22 at 14:15; Stop 04/12/22 at 14:16; Status DC Midazolam HCl (Versed) 2 mg STK-MED ONCE .ROUTE ; Start 04/12/22 at 13:16; Stop 04/12/22 at 13:17; Status DC Morphine Sulfate (Morphine Sulfate) 2 mg STK-MED ONCE .ROUTE ; Start 04/12/22 at 11:05; Stop 04/12/22 at 11:05; Status DC Propofol 100 ml @ As Directed STK-MED ONCE IV ; Start 04/12/22 at 11:13; Stop 04/12/22 at 11:14; Status DC Sodium Chloride 1,000 ml @ 400 mls/hr Q2H30M PRN IV PATENCY; Start 04/13/22 at 07:45; Stop 04/13/22 at 19:44 Sodium Chloride 1,000 ml @ 1,000 mls/hr Q1H PRN IV hypotension; Start 04/13/22 at 07:45; Stop 04/13/22 at 13:44 Vitals/I & O Vital Sign - Last 24 Hours 04/12/22 04/12/22 04/12/22 04/12/22 11:06 11:06 11:20 11:35 Temp 98.1 98.0 98.1 98.0 Pulse 72 77 75 Resp 16 16 16 B/P (MAP) 115/49 113/46 112/48 Pulse Ox 96 96 96 O2 Delivery Room Air Room Air Room Air Room Air O2 Flow Rate 2.0 04/12/22 04/12/22 04/12/22 04/12/22 12:21 14:13 14:38 18:55 Pulse 61 Resp 16 11 19 14 Pulse Ox 100 O2 Delivery Nasal Cannula O2 Flow Rate 2.0 04/12/22 04/12/22 04/12/22 04/12/22 18:59 19:25 20:00 23:00 Temp 97.6 97.7 97.6 97.7 Pulse 72 70 Resp 18 16 18 B/P (MAP) 125/53 (77) 116/54 (74) Pulse Ox 98 98 98 O2 Delivery Room Air Room Air Room Air Room Air 04/13/22 04/13/22 04/13/22 04/13/22 02:00 02:40 03:10 07:00 Temp 98.5 98.5 Pulse 77 80 Resp 19 16 16 B/P (MAP) 106/75 (85) 104/70 (81) Pulse Ox 95 98 98 O2 Delivery Room Air Room Air Room Air 04/13/22 07:50 Pulse Ox 98 O2 Delivery Room Air Intake and Output 04/12/22 04/12/22 04/13/22 15:00 23:00 07:00 Intake Total 180 ml 150 ml Output Total 25 ml Balance 155 ml 150 ml JESSICA SANCHEZ MD April 13, 2022 09:37
--- NOTE | 2022-04-13 11:10 | PDOC ---
Dialysis Progress Note Date of Service: DATE: 04/13/22 TIME: 11:09 Dialysis Note Dialysis Note Seen on Hemodialysis, tolerating treatment Okay so far Vitals on Hemodialysis: BP: 107 / 50 HR 66 afeb General Appearance: Awake: Alert Oriented x 2-3 Neck: No JVD or JVP Chest: CTA Cordell Heart: S1 S2 Abdomen - Soft NTND Extremities - No Edema ESRD: Dialysis as below F 180 NR 3.0 Hrs 2 K 2.5 Ca 140 Na 35 HC03 Qb 350 + Qd 500+ Heparin 0 Units Uf 1 Kgs or to dry weight as tolerated May give 25-50 gms of 25% Albumin if needed to maintain Hemodynamic stability Treatment plan reviewed and discussed with commercial artist lettering Vitals Vital Signs Vital Signs Date Time Temp Pulse Resp B/P (MAP) Pulse Ox O2 Delivery O2 Flow Rate FiO2 04/13/22 07:50 98 Room Air 04/13/22 07:00 80 104/70 (81) 04/13/22 03:10 16 04/13/22 02:00 98.5 98.5 04/12/22 14:38 2.0 Labs Last Labs Laboratory Tests Test 04/11/22 12:15 04/11/22 17:39 04/11/22 20:14 04/12/22 04:30 Glucose (Fingerstick) 286 mg/dL (70-99) 153 mg/dL (70-99) 196 mg/dL (70-99) White Blood Count 10.3 x10^3/uL (4.0-11.0) Red Blood Count 3.97 x10^6/uL (4.30-5.70) Hemoglobin 11.5 g/dL (13.0-17.5) Hematocrit 35.0 % (39.0-53.0) Mean Corpuscular Volume 88 fL (79-100) Mean Corpuscular Hemoglobin 29 pg (25-35) Mean Corpuscular Hemoglobin Concent 33 g/dL (31-37) Red Cell Distribution Width 15.3 % (11.5-14.5) Platelet Count 249 x10^3/uL (140-400) Sodium Level 139 mmol/L (136-145) Potassium Level 4.8 mmol/L (3.5-5.1) Chloride Level 100 mmol/L (98-107) Carbon Dioxide Level 25 mmol/L (21-32) Anion Gap 14 (6-14) Blood Urea Nitrogen 90 mg/dL (8-26) Creatinine 6.8 mg/dL (0.7-1.3) Estimated GFR (Cockcroft-Gault) 8.0 Glucose Level 163 mg/dL (70-99) Calcium Level 8.1 mg/dL (8.5-10.1) Test 04/12/22 07:42 04/12/22 11:41 04/12/22 20:18 04/13/22 04:30 Glucose (Fingerstick) 150 mg/dL (70-99) 166 mg/dL (70-99) 157 mg/dL (70-99) Sodium Level 141 mmol/L (136-145) Potassium Level 5.0 mmol/L (3.5-5.1) Chloride Level 103 mmol/L (98-107) Carbon Dioxide Level 26 mmol/L (21-32) Anion Gap 12 (6-14) Blood Urea Nitrogen 53 mg/dL (8-26) Creatinine 4.3 mg/dL (0.7-1.3) Estimated GFR (Cockcroft-Gault) 13.6 Glucose Level 213 mg/dL (70-99) Calcium Level 7.8 mg/dL (8.5-10.1) Test 04/13/22 07:49 Glucose (Fingerstick) 168 mg/dL (70-99) Laboratory Tests Test 04/12/22 11:41 04/12/22 20:18 04/13/22 04:30 04/13/22 07:49 Glucose (Fingerstick) 166 mg/dL (70-99) 157 mg/dL (70-99) 168 mg/dL (70-99) Sodium Level 141 mmol/L (136-145) Potassium Level 5.0 mmol/L (3.5-5.1) Chloride Level 103 mmol/L (98-107) Carbon Dioxide Level 26 mmol/L (21-32) Anion Gap 12 (6-14) Blood Urea Nitrogen 53 mg/dL (8-26) Creatinine 4.3 mg/dL (0.7-1.3) Estimated GFR (Cockcroft-Gault) 13.6 Glucose Level 213 mg/dL (70-99) Calcium Level 7.8 mg/dL (8.5-10.1) DEBI SANCHEZ MD April 13, 2022 11:10
[2022-04-13] MEDS: ceFAZolin SODIUM IV Push 1 GM VIAL. IVP SCH (13:25)
[2022-04-13] MEDS: DOCUSATE SODIUM 100 MG CAPSULE. PO SCH (13:25)
[2022-04-13] MEDS: ASPIRIN ENTERIC COATED 81 MG TABLET.DR. PO SCH (13:25)
[2022-04-13] MEDS: ASCORBIC ACID 500 MG TABLET PO SCH (13:26)
[2022-04-13] MEDS: LACTOBACILLUS RHAMNOSUS GG 1 CAPSULE. PO SCH (13:26)
[2022-04-13] MEDS: ZINC SULFATE 220 MG CAPSULE. PO SCH (13:26)
[2022-04-13] MEDS: CETIRIZINE HCL 10 MG TABLET. PO SCH (13:26)
[2022-04-13] MEDS: THIAMINE 100 MG TABLET. PO SCH (13:26)
[2022-04-13 14:10] VITALS: BP 97/38
[2022-04-13] MEDS ORDERED: CEFAZOLIN SODIUM IVP (14:31)
--- NOTE | 2022-04-13 14:34 | PDOC ---
[employer] PROGRESS NOTE Date of Service DOS: DATE: 04/13/22 TIME: 14:17 Chief Complaint Chief Complaint Staph aureus bacteremia - recurrently positive, was positive at [facility] Weakness - likely related to COVID 19, also with some uremia Myalgias - viral syndrome ESRD - with uremia. Consult nephrology for missed dialysis session. Started dialysis this past November 2021, has RIJ tunneled dialysis catheter Cardiomyopathy - ischemic by history, s/p AICD [facility] Star paced rhythm with underlying afib HTN - low BP since HLD - statin DM2 - basal bolus plus insulin while inpatient Chronic AFIB - rate controlled with pacer AICD CAD - prior PCI. Sees Dr. Sena through the [facility] UTI - morganella UTI in January 2022, recurred currently Severe malnutrition COVID 19 - supportive care. 04/12/22 will be 10 days, needs no treatment History of Present Illness History of Present Illness Mr Anderson is a 71 yo male with PMHx chronic afib, chronic combined CHF, ischemic cardiomyopathy s/p AICD placement, HTN, HLD, GERD, DM2, and ESRD on HD comes to the ED at [facility] c/o shortness of breath and inability to have dialysis. He has been short of breath for the past 6 days prior to arrival and feeling progressively more weak and has myalgias. His actually had to help him stand up today. He went to his regularly scheduled dialysis but he was asked to be rescheduled until tomorrow. He was concerned about his progressive symptoms and noted his tested positive for COVID19 2 weeks ago with similar symptoms and so came to [facility] ED for further care. Labs with WBC 15.9, Hb 12,8, platelets 176, Na 131, K 4.5, BUN 110, Cr 6.32, Glucose 211, Ca 8.1, AST 31, ALT35, Alk phos 108, Albumin 3.4, COVID 19 rapid positive Chest radiograph with no acute abnormality, well positioned right HD catheter and left sided AICD pacer Due to his lab abnormalities, unable to stand unaided and COVID 19 he was called for transfer to [facility] for further care. Brief hospital course: Ultimately he was found to have staph bacteremia and was started on cefazolin his dialysis catheter was removed and due to concerns for possible pacemaker involvement underwent ADELINA which was negative. He did not pam lly have any significant COVID symptoms was never hypoxic. He successfully had a replacement tunneled HD catheter and a right upper extremity AV fistula placed with vascular surgery and will have outpatient follow-up with ID. 04/05: Evaluate examined at bedside. A bit lethargic but improving. Nephrology infectious disease recommendations reviewed. Waiting on [place] culture results still. Continue IV antibiotics. Dialysis tomorrow. Therapy modalities. 04/04: Patient evaluated undergoing dialysis. He is a bit lethargic but no major complaints. Continue current. Therapy evaluation for possible placement. Discussed with bedside RN. Steel Roller recommendations reviewed. 04/03: Patient afebrile, resting comfortably on room air. Denies any shortness of breath. Reports some muscle aches in his neck, shoulders, and proximal legs. States he has not had dialysis and few days due to his weakness. Potassium 4.1; I doubt there is any urgent need for dialysis at this time, but will wait for nephrology impression. 04/08: Urine culture from [facility] with greater than 100,000 CFU of Morganella Heron high sensitive to Rocephin. Blood culture 1 out of 4 bottles positive for staph aureus MSSA from [facility]. He is able to eat today not hypoxic. Feeling little stronger. 04/09: Repeat 523 blood cultures no growth to date. Tolerated dialysis well is little tired sore throat and neck pain are improving. He has been made n.p.o. for ADELINA and will have his tunneled dialysis catheter removed after he is been off his Eliquis an additional day. Feeling weaker 04/10: Overall feeling improved Eliquis on hold removed his tunneled dialysis catheter still eating treatment for UTI and staph bacteremia seen by vascular surgery for AV fistula creation tentatively planned for 04/12/2022. Still feel ing pretty weak 04/11: Having some right chest wall pain tunneled dialysis catheter removal site. Asking if he can temporarily have a higher dose of hydrocodone to relieve his pain better. Afebrile. Plan for n.p.o. after midnight for catheter and fistula 04/12: Seen and examined briefly after his right AV fistula surgery and right tunneled HD catheter placement on his way to dialysis. Catheter tip culture results with no growth. We will be planning to do 2 g Friday 2 g and 3 g Friday of cefazolin for the next 6 weeks and follow-up outpatient with ID will have to be on long-term suppressive antibiotic therapy. Discussed with nephrology and infectious disease. 04/13: Seen and examined after another successful dialysis session had a little bit of neck pain but able to relax with massage. He is set up for 2 g Friday 2 g and 3 g Friday of cefazolin and will follow-up outpatient with infectious diseases and nephrology as scheduled. Subsequently plan will be for long-term antibiotics Consults: Cardiology, Nephrology, ID, and Vascular surgery Problem list: Vitals/I&O Vitals/I&O: Vital Signs Date Time Temp Pulse Resp B/P (MAP) Pulse Ox O2 Delivery O2 Flow Rate FiO2 04/13/22 14:10 98.5 89 19 97/38 (57) 96 Room Air 98.5 04/12/22 14:38 2.0 I & O 04/12/22 04/12/22 04/13/22 15:00 23:00 07:00 Intake Total 180 ml 150 ml Output Total 25 ml Balance 155 ml 150 ml Physical Exam Physical Exam: GENERAL: Alert, oriented gentleman, not in distress. VITAL SIGNS: stable HEENT: Both pupils are round and reacting. No conjunctival lesion, no lesion in the mouth. NECK: Supple, no JVP, no lymphadenopathy. LUNGS: Clear. HEART: S1, S2, regular. ABDOMEN: Soft, nontender, no organomegaly. EXTREMITIES: No edema, cyanosis. SKIN: Unremarkable. MUSCULOSKELETAL: In particular, his neck is stiff, but it is difficult to evaluate since his muscles are very tight in the neck and the pain is in the middle of the neck as well as has radiation into the bilateral shoulders. NEUROLOGIC: The patient is alert, awake, and appropriate. No focal neurologic deficit. General: Alert, Oriented X3 Heart: Regular rate, Other (palpable radial and brachial pulses 2+ bilaterally. Normal allens test on right) Lungs: Clear Abdomen: Soft, No tenderness Extremities: No clubbing, No edema Skin: No rashes, No significant lesion Labs Labs: Laboratory Tests Test 04/12/22 20:18 04/13/22 04:30 04/13/22 07:49 04/13/22 13:01 Glucose (Fingerstick) 157 mg/dL (70-99) 168 mg/dL (70-99) 141 mg/dL (70-99) Sodium Level 141 mmol/L (136-145) Potassium Level 5.0 mmol/L (3.5-5.1) Chloride Level 103 mmol/L (98-107) Carbon Dioxide Level 26 mmol/L (21-32) Anion Gap 12 (6-14) Blood Urea Nitrogen 53 mg/dL (8-26) Creatinine 4.3 mg/dL (0.7-1.3) Estimated GFR (Cockcroft-Gault) 13.6 Glucose Level 213 mg/dL (70-99) Calcium Level 7.8 mg/dL (8.5-10.1) Comment Review of Relevant I have reviewed the following items kate (where applicable) has been applied. Justifications for Admission General Conditions Poss hypotension?: Yes Justification for admission: Patient has hypotension (SBP < 90 mm Hg) which is not readily corrected by appropriate treatment within 12 to 24 hours. Poss Metaboilic Acidosis?: Yes Justification for admission: Patient has tachycardia (> 100 beats per minute) or hypotension (SBP < 90 mm Hg) leading to inadequate systemic perfusion as indicated by metabolic acidosis with arterial pH of less than 7.35. Other Justification SHELIA OCASIO MD April 13, 2022 14:34
--- NOTE | 2022-04-13 14:36 | PDOC3 ---
Discharge Summary Visit Information Date of Admission: April 02, 2022 Date of Discharge: April 13, 2022 Admitting Diagnosis: COVID 19, sepsis Final Diagnosis Gram positive bacteremia Brief Hospital Course Allergies Allergies Coded Allergies Type Severity Reaction Last Updated Verified No Known Drug Allergies 01/31/22 No Vital Signs Vital Signs Date Time Temp Pulse Resp B/P (MAP) Pulse Ox O2 Delivery O2 Flow Rate FiO2 04/13/22 14:10 98.5 89 19 97/38 (57) 96 Room Air 98.5 04/12/22 14:38 2.0 Lab Results Laboratory Tests Test 04/11/22 17:39 04/11/22 20:14 04/12/22 04:30 04/12/22 07:42 Glucose (Fingerstick) 153 mg/dL (70-99) 196 mg/dL (70-99) 150 mg/dL (70-99) White Blood Count 10.3 x10^3/uL (4.0-11.0) Red Blood Count 3.97 x10^6/uL (4.30-5.70) Hemoglobin 11.5 g/dL (13.0-17.5) Hematocrit 35.0 % (39.0-53.0) Mean Corpuscular Volume 88 fL (79-100) Mean Corpuscular Hemoglobin 29 pg (25-35) Mean Corpuscular Hemoglobin Concent 33 g/dL (31-37) Red Cell Distribution Width 15.3 % (11.5-14.5) Platelet Count 249 x10^3/uL (140-400) Sodium Level 139 mmol/L (136-145) Potassium Level 4.8 mmol/L (3.5-5.1) Chloride Level 100 mmol/L (98-107) Carbon Dioxide Level 25 mmol/L (21-32) Anion Gap 14 (6-14) Blood Urea Nitrogen 90 mg/dL (8-26) Creatinine 6.8 mg/dL (0.7-1.3) Estimated GFR (Cockcroft-Gault) 8.0 Glucose Level 163 mg/dL (70-99) Calcium Level 8.1 mg/dL (8.5-10.1) Test 04/12/22 11:41 04/12/22 20:18 04/13/22 04:30 04/13/22 07:49 Glucose (Fingerstick) 166 mg/dL (70-99) 157 mg/dL (70-99) 168 mg/dL (70-99) Sodium Level 141 mmol/L (136-145) Potassium Level 5.0 mmol/L (3.5-5.1) Chloride Level 103 mmol/L (98-107) Carbon Dioxide Level 26 mmol/L (21-32) Anion Gap 12 (6-14) Blood Urea Nitrogen 53 mg/dL (8-26) Creatinine 4.3 mg/dL (0.7-1.3) Estimated GFR (Cockcroft-Gault) 13.6 Glucose Level 213 mg/dL (70-99) Calcium Level 7.8 mg/dL (8.5-10.1) Test 04/13/22 13:01 Glucose (Fingerstick) 141 mg/dL (70-99) Laboratory Tests Test 04/12/22 20:18 04/13/22 04:30 04/13/22 07:49 04/13/22 13:01 Glucose (Fingerstick) 157 mg/dL (70-99) 168 mg/dL (70-99) 141 mg/dL (70-99) Sodium Level 141 mmol/L (136-145) Potassium Level 5.0 mmol/L (3.5-5.1) Chloride Level 103 mmol/L (98-107) Carbon Dioxide Level 26 mmol/L (21-32) Anion Gap 12 (6-14) Blood Urea Nitrogen 53 mg/dL (8-26) Creatinine 4.3 mg/dL (0.7-1.3) Estimated GFR (Cockcroft-Gault) 13.6 Glucose Level 213 mg/dL (70-99) Calcium Level 7.8 mg/dL (8.5-10.1) Brief Hospital Course Mr Anderson is a 71 yo male with PMHx chronic afib, chronic combined CHF, ischemic cardiomyopathy s/p AICD placement, HTN, HLD, GERD, DM2, and ESRD on HD comes to the ED at [facility] c/o shortness of breath and inability to have dialysis. He has been short of breath for the past 6 days prior to arrival and feeling progressively more weak and has myalgias. His actually had to help him stand up today. He went to his regularly scheduled dialysis but he was asked to be rescheduled until tomorrow. He was concerned about his progressive symptoms and noted his tested positive for COVID19 2 weeks ago with similar symptoms and so came to [facility] for further care. Labs with WBC 15.9, Hb 12,8, platelets 176, Na 131, K 4.5, BUN 110, Cr 6.32, Glucose 211, Ca 8.1, AST 31, ALT35, Alk phos 108, Albumin 3.4, COVID 19 rapid positive Chest radiograph with no acute abnormality, well positioned right HD catheter and left sided AICD pacer Due to his lab abnormalities, unable to stand unaided and COVID 19 he was called for transfer to [facility] for further care. Brief hospital course: Ultimately he was found to have staph bacteremia and was started on cefazolin his dialysis catheter was removed and due to concerns for possible pacemaker involvement underwent ADELINA which was negative. He did not really have any significant COVID symptoms was never hypoxic. He successfully had a replacement tunneled HD catheter and a right upper extremity AV fistula placed with vascular surgery and will have outpatient follow-up with ID. 04/05: Evaluate examined at bedside. A bit lethargic but improving. Nephrology infectious disease recommendations reviewed. Waiting on [place] culture results still. Continue IV antibiotics. Dialysis tomorrow. Therapy modalities. 04/04: Patient evaluated undergoing dialysis. He is a bit lethargic but no major complaints. Continue current. Therapy evaluation for possible placement. Discussed with bedside RN. Director Specialty recommendations reviewed. 04/03: Patient afebrile, resting comfortably on room air. Denies any shortness of breath. Reports some muscle aches in his neck, shoulders, and proximal legs. States he has not had dialysis and few days due to his weakness. Potassium 4.1; I doubt there is any urgent need for dialysis at this time, but will wait for nephrology impression. 04/08: Urine culture from [facility] with greater than 100,000 CFU of Morganella Heron high sensitive to Rocephin. Blood culture 1 out of 4 bottles positive for staph aureus MSSA from [facility]. He is able to eat today not hypoxic. Feeling little stronger. 04/09: Repeat 523 blood cultures no growth to date. Tolerated dialysis well is little tired sore throat and neck pain are improving. He has been made n.p.o. for ADELINA and will have his tunneled dialysis catheter removed after he is been off his Eliquis an additional day. Feeling weaker 04/10: Overall feeling improved Eliquis on hold removed his tunneled dialysis catheter still eating treatment for UTI and staph bacteremia seen by vascular surgery for AV fistula creation tentatively planned for 04/12/2022. Still feeling pretty weak 04/11: Having some right chest wall pain tunneled dialysis catheter removal site. Asking if he can temporarily have a higher dose of hydrocodone to relieve his pain better. Afebrile. Plan for n.p.o. after midnight for catheter and fistula 04/12: Seen and examined briefly after his right AV fistula surgery and right tunneled HD catheter placement on his way to dialysis. Catheter tip culture results with no growth. We will be planning to do 2 g Friday 2 g and 3 g Friday of cefazolin for the next 6 weeks and follow-up outpatient with ID will have to be on long-term suppressive antibiotic therapy. Discussed with nephrology and infectious disease. 04/13: Seen and examined after another successful dialysis session had a little bit of neck pain but able to relax with massage. He is set up for 2 g Friday 2 g and 3 g Friday of cefazolin and will follow-up outpatient with infectious diseases and nephrology as scheduled. Subsequently plan will be for long-term antibiotics Consults: Cardiology, Nephrology, ID, and Vascular surgery Problem list: Staph aureus bacteremia - recurrently positive, was positive at [facility] Weakness - likely related to COVID 19, also with some uremia Myalgias - viral syndrome ESRD - with uremia. Consult nephrology for missed dialysis session. Started dialysis this past November 2021, has RIJ tunneled dialysis catheter Cardiomyopathy - ischemic by history, s/p AICD [facility] [facility] paced rhythm with underlying afib HTN - low BP since HLD - statin DM2 - basal bolus plus insulin while inpatient Chronic AFIB - rate controlled with pacer AICD CAD - prior PCI. Sees Dr. Sena through the [facility] UTI - morganella UTI in January 2022, recurred currently Severe malnutrition COVID 19 - supportive care. 04/12/22 will be 10 days, needs no treatment Greater than 30 minutes spent on discharge home with home health orders but patient does not wish for home health Discharge Information Condition at Discharge: Improved Follow Up: Weeks (1) Disposition/Orders: D/C to Home Scheduled Apixaban (Eliquis) 2.5 Mg Tablet, 2.5 MG PO BID for blood thinner, (Reported) Entered as Reported by: IAN VILLALOBOS on 01/31/221745 Last Action: Continued on 04/02/222118 by SHELIA OCASIO MD Buprenorphine (Butrans) 1 Each Patch.tdwk, 1 PATCH TP WEEKLY for MDD 0.14 Patch(s) for 28 Days, #28 Ref 0 (Reported) Entered as Reported by: Lulú Weeks on 04/03/22235 Last Taken: 10MG/HR on Unknown Date & Time Last Action: Reviewed on 04/03/22235 by Lulú Weeks Cetirizine Hcl (Cetirizine Hcl) 10 Mg Tablet, 0.5 TAB PO DAILY for allergies, #30 Ref 5 (Reported) Entered as Reported by: IAN VILLALOBOS on 01/31/221745 Last Action: Edited on 04/03/22235 by Lulú Weeks Cholecalciferol (Vitamin D3) (Vitamin D3 ) 25 Mcg Tablet, 50 MCG PO DAILY for SUPPLEMENT, (Reported) 1,000 UNITS = 25 MCG Entered as Reported by: Lulú Weeks on 04/03/22235 Last Action: Reviewed on 04/03/22235 by Lulú Weeks Gabapentin (Gabapentin) 600 Mg Tablet, 300 MG PO HS for NEUROGENIC PAIN, (Reported) Entered as Reported by: IAN VILLALOBOS on 01/31/221745 Last Action: Converted on 04/02/222118 by SHELIA OCASIO MD Insulin Detemir (Levemir) 100 Unit/1 Ml Vial, 24 UNIT SQ HS for blood sugar, (Reported) Entered as Reported by: IAN VILLALOBOS on 01/31/221746 Last Action: Reviewed on 04/03/22235 by Lulú Weeks Pantoprazole Sodium (Protonix ) 40 Mg Tablet.dr, 40 MG PO DAILYAC for GERD, (Reported) Entered as Reported by: IAN VILLALOBOS on 01/31/221745 Last Action: Continued on 04/02/222118 by SHELIA OCASIO MD Rosuvastatin Calcium (Crestor) 40 Mg Tablet, 1 TAB PO DAILY for cholesterol, #30 Ref 5 (Reported) Entered as Reported by: IAN VILLALOBOS on 01/31/221745 Last Action: Converted on 04/02/222118 by SHELIA OCASIO MD Tiotropium [place] (Spiriva) 18 Mcg Cap.w.dev, 2 INH IH DAILY for , #1 Ref 0 (Reported) Entered as Reported by: Lulú Weeks on 04/03/22235 Last Action: Reviewed on 04/03/22235 by Lulú Weeks [Cefazolin Sodium] 1 GM VIAL, 1 GM IVP Q12H Prescribed by: SHELIA OCASIO MD on 04/13/22 143 Scheduled PRN Albuterol Sulfate (Proair Hfa Inhaler) 8.5 Gm Hfa.aer.ad, 2 PUFF IH PRN Q4-6HRS PRN for wheezing for 21 Days, #1 Ref 0 (Reported) Entered as Reported by: IAN VILLALOBOS on 01/31/221750 Last Action: Reviewed on 04/03/22235 by Lulú Weeks Discontinued Medications Bumetanide (Bumetanide) 1 Mg Tablet, 2 TAB PO DAILY for water pill, #90 Ref 3 (Reported) Entered as Reported by: IAN VILLALOBOS on 01/31/221745 Last Action: Reviewed on 04/03/22235 by Lulú Weeks Bumetanide (Bumetanide) 1 Mg Tablet, 1 TAB PO QEVNG for , #90 Ref 1 (Reported) Entered as Reported by: Lulú Weeks on 04/03/22235 Last Action: Reviewed on 04/03/22235 by Lulú Weeks Flecainide Acetate (Flecainide Acetate) 100 Mg Tablet, 1.5 TAB PO BID for , #60 Ref 5 (Reported) Entered as Reported by: Lulú Weeks on 04/03/22235 Last Action: Reviewed on 04/03/22235 by Lulú Weeks Justicifation of Admission Dx: Justifications for Admission: Justification of Admission Dx: N/A SHELIA OCASIO MD April 13, 2022 14:35
--- NOTE | 2022-04-13 15:48 | NUR ---
No s/s of acute distress or pain. VSS. A&Ox4. Pt underwent dialysis today. Pt discharged this afternoon. DC instructions reviewed with pt and questions about DC were answered. Cefazolin orders were faxed to [facility] per MD orders.
== END 2022-04-13 15:26 | disposition home or self-care (01) | DRG 853 ==
LOC: 6 SOUTH 20:23
PROVIDERS: ADMIT Internal Medicine; ATTEND Internal Medicine
PROC: 5A1D70Z Performance of Urinary Filtration, Intermittent, Less than 6 Hours Per Day (ICD-10-PCS; 2022-04-03)
PROC: 5A1D70Z Performance of Urinary Filtration, Intermittent, Less than 6 Hours Per Day (ICD-10-PCS; 2022-04-06)
PROC: B24BZZ4 Ultrasonography of Heart with Aorta, Transesophageal (ICD-10-PCS; 2022-04-09)
PROC: 5A1D70Z Performance of Urinary Filtration, Intermittent, Less than 6 Hours Per Day (ICD-10-PCS; 2022-04-09)
PROC: 5A1D70Z Performance of Urinary Filtration, Intermittent, Less than 6 Hours Per Day (ICD-10-PCS; 2022-04-12)
PROC: 031B0AF Bypass Right Radial Artery to Lower Arm Vein with Autologous Arterial Tissue, Open Approach (ICD-10-PCS; principal; 2022-04-12 09:00)
PROC: 5A1D70Z Performance of Urinary Filtration, Intermittent, Less than 6 Hours Per Day (ICD-10-PCS; 2022-04-13)
PROC: 5A1D70Z Performance of Urinary Filtration, Intermittent, Less than 6 Hours Per Day (ICD-10-PCS; 2022-04-13)
DX: A41.89 Other specified sepsis (principal); U07.1 COVID-19; N18.6 End stage renal disease; E43 Unspecified severe protein-calorie malnutrition; I13.2 Hypertensive heart and chronic kidney disease with heart failure and with stage 5 chronic kidney disease, or end stage renal disease; I48.20 Chronic atrial fibrillation, unspecified; N39.0 Urinary tract infection, site not specified; I50.42 Chronic combined systolic (congestive) and diastolic (congestive) heart failure; B95.61 Methicillin susceptible Staphylococcus aureus infection as the cause of diseases classified elsewhere; B96.89 Other specified bacterial agents as the cause of diseases classified elsewhere; D64.9 Anemia, unspecified; E11.22 Type 2 diabetes mellitus with diabetic chronic kidney disease; E78.5 Hyperlipidemia, unspecified; F17.210 Nicotine dependence, cigarettes, uncomplicated; I25.10 Atherosclerotic heart disease of native coronary artery without angina pectoris; I25.5 Ischemic cardiomyopathy; J44.9 Chronic obstructive pulmonary disease, unspecified; M19.90 Unspecified osteoarthritis, unspecified site; M48.10 Ankylosing hyperostosis [Forestier], site unspecified; M48.8X9 Other specified spondylopathies, site unspecified; M50.90 Cervical disc disorder, unspecified, unspecified cervical region; Z79.01 Long term (current) use of anticoagulants; Z79.2 Long term (current) use of antibiotics; Z82.49 Family history of ischemic heart disease and other diseases of the circulatory system; Z87.440 Personal history of urinary (tract) infections; Z95.810 Presence of automatic (implantable) cardiac defibrillator; Z98.61 Coronary angioplasty status; Z99.2 Dependence on renal dialysis; E21.3 Hyperparathyroidism, unspecified; K21.9 Gastro-esophageal reflux disease without esophagitis; Z20.822 Contact with and (suspected) exposure to COVID-19; Z68.30 Body mass index [BMI] 30.0-30.9, adult
CPT/HCPCS: 36415; 36558; 36589; 72125; 76937; 77001; 80048; 80053; 80202; 82550; 82962; 84100; 85007; 85025; 85027; 86706; 87040; 87071; 87077; 87185; 87186; 87340; 87426; 93312; 93325; 93970; 93971; 99152; 99153; A4209; A4213; A4222; A4364; A4452; A4930; A6219; A6254; A6402; A6443; C1750; C1892; J0690; J0696; J1644; J1815; J2250; J2370; J2440; J2704; J2720; J3010; J3370; J3490; J7040; P9046; 97110-GP; 97530-GO; 97530-GP; 97535-GO; G0378; Q4081